=== PATIENT | female | born 1960 | race Caucasian/White ===

== ENCOUNTER 2017-03-18 17:47 | Inpatient (IN) | payer OTHER ==
[~2017-03-18] VITALS: Ht 167.6 cm; Wt 96.1 kg
[~2017-03-18 17:47] MED LIST: NO MEDS
[2017-03-18] MEDS ORDERED: FAMOTIDINE 20 MG INJ IV STA (18:54)
[2017-03-18] MEDS ORDERED: SOD CHLORIDE 0.9% 1,000 ML IV STA (18:54)
[2017-03-18] MEDS ORDERED: IPRATROPIUM (NEB) 0.5 MG/2.5 ML AMP INH STA (18:54)
[2017-03-18] MEDS ORDERED: ALBUTEROL 0.5% (NEB) 2.5 MG/0.5 ML AMP INH STA (18:54)
[2017-03-18] MEDS ORDERED: ONDANSETRON 4 MG INJ IV STA (18:54)
[2017-03-18 18:55] VITALS: TEMP 97.9
[2017-03-18 20:07] LABS: BASOPHIL # 0.1 10^3/ul (0.0-0.1); EOSINOPHILS # 0.2 10^3/ul (0.0-0.5); EOSINOPHILS % 1.8 % (0.0-7.0); HEMATOCRIT 43.9 % (37.0-47.0); LYMPHOCYTES # 1.8 10^3/ul (0.8-2.9); LYMPHOCYTES % 19.1 % (15.0-51.0); MEAN CORPUSCULAR HEMOGLOBIN 29.7 pg (29.0-33.0); MEAN CORPUSCULAR HGB CONC 34.2 g/dl (32.0-37.0); MEAN CORPUSCULAR VOLUME 86.9 fl (82.0-101.0); MEAN PLATELET VOLUME 12.3 fl (7.4-10.4); MONOCYTE # 0.8 10^3/ul (0.3-0.9); MONOCYTES % 9.1 % (0.0-11.0); NEUTROPHIL # 6.2 10^3/ul (1.6-7.5); NEUTROPHILS % 67.8 % (39.0-77.0); PLATELET COUNT 314 10^3/UL (140-415); RED BLOOD COUNT 5.05 10^6/ul (4.20-5.40); RED CELL DISTRIBUTION WIDTH 14.8 % (11.5-14.5); WHITE BLOOD COUNT 9.1 10^3/ul (4.8-10.8)
[2017-03-18 20:08] LABS: ADD SCAN DIFF NO
[2017-03-18 20:15] LABS: ADD UMIC YES; UR ASCORBIC ACID NEGATIVE (NEGATIVE); UR BACTERIA FEW /HPF (NONE SEEN); UR BILIRUBIN (Dip) 2+ mg/dL (NEGATIVE); UR BLOOD (Dip) 1+ mg/dL (NEGATIVE); UR CLARITY SLIGHTLY CLOUDY (CLEAR); UR COLOR AMBER (YELLOW); UR GLUCOSE (Dip) 1+ mg/dL (NEGATIVE); UR KETONES (Dip) NEGATIVE (NEGATIVE); UR LEUKOCYTE ESTERASE (Dip) 3+ Leu/ul (NEGATIVE); UR MUCUS FEW /HPF (NONE SEEN); UR NITRITE (Dip) NEGATIVE (NEGATIVE); UR RBC 7 /HPF (0-5); UR SPECIFIC GRAVITY (Dip) 1.016 (1.003-1.030); UR SQUAMOUS EPITHELIAL CELL MANY /HPF (FEW); UR TOTAL PROTEIN (Dip) 1+ mg/dl (NEGATIVE); UR UROBILINOGEN (Dip) 2+ mg/dL (NEGATIVE)
[2017-03-18 20:30] LABS: ALBUMIN 3.8 g/dl (3.3-4.9); ALBUMIN/GLOBULIN RATIO 1.46; BILIRUBIN,DIRECT 7.7 mg/dl (0.00-0.20); BILIRUBIN,INDIRECT 1.5 mg/dl (0-1.1); BILIRUBIN,TOTAL 9.2 mg/dl (0.2-1.3); CREATININE 0.62 mg/dl (0.44-1.00); POTASSIUM 3.5 mmol/L (3.5-5.1); TOTAL PROTEIN 6.4 g/dl (6.1-8.1)
[2017-03-18] MEDS ORDERED: DOCU250C68 PO (20:30)
[2017-03-18] MEDS ORDERED: IBUP800T25 PO (20:30)
[2017-03-18] MEDS ORDERED: METF850T PO (20:31)
[2017-03-18] MEDS ORDERED: SERT50TA6 PO (20:31)
[2017-03-18] MEDS ORDERED: PANT40TA4 PO (20:32)
[2017-03-18] MEDS ORDERED: METO25TA7 PO (20:32)
[2017-03-18] MEDS ORDERED: MISO200T3 PO (20:32)
[2017-03-18] MEDS ORDERED: TRAM-40 PO (20:33)
[2017-03-18] MEDS ORDERED: DICL100G37 TOP (20:34)
[2017-03-18] MEDS ORDERED: CEFTRIAXONE 1 GM/50 ML (PMX) 50 ML IVPB ONE (21:00)
[2017-03-18] MEDS ORDERED: IOHEXOL 300MG/ML 150 ML BTL ONE (21:05)
[2017-03-18] MEDS ORDERED: SOD CHLORIDE 0.9% 100 ML ONE (21:05)
--- NOTE | 2017-03-18 21:36 | RADRPT ---
PROCEDURE: Right upper quadrant abdominal ultrasound. CLINICAL INDICATION: Abdominal pain TECHNIQUE: Holman scale and color doppler ultrasound images of the right upper quadrant. COMPARISON: None FINDINGS: Pancreas: Visualized portions appear of normal echogenicity, no focal lesions. Liver: Morphology: The right lobe of the liver is elongated measuring up to 21.0 cm which may reflect Kira del's lobe configuration. No evidence of contour nodularity. Echogenicity: Normal. Focal lesions: None. Main portal vein: Patent with hepatopetal flow. Biliary System: Appears contracted. No gallstones seen. No intrahepatic biliary dilatation. Common bile duct measures 4.3 mm in maximal dimension. Kidneys: Right 10.8 cm in length. Right renal cortical thickness is preserved. Normal echogenicity. No hydronephrosis. No renal calculi. No focal lesions. No free fluid identified. IMPRESSION: Gallbladder wall thickening appears to be secondary to contraction. No gallstones are seen. Normal caliber intrahepatic and extrahepatic biliary system. RPTAT: AADD .Lowell Gottlieb MD, MD Date Time Electronically viewed and signed by .Lowell Gottlieb MD, on 03/18/2017 21:36 .B/
[2017-03-18] MEDS ORDERED: morphine 4 MG/ML VIAL IV ONE (22:04)
[2017-03-18] MEDS ORDERED: SOD CHLORIDE 0.9% 1,000 ML IV SCH (22:13)
--- NOTE | 2017-03-18 22:18 | ERA ---
ER Documentation Chief Complaint Date/Time DATE: 03/18/17 TIME: 22:15 Chief Complaint NAUSEA FOR SEVERAL YEARS, NO ABD PAIN, DARK-COLORED URINE HPI This is a 36-year-old female with a history of hypertension diabetes who presents to the emergency room for evaluation of nausea, and yellow coloring of her skin and eyes for the past 2 days. The patient denies any abdominal pain and came to the emergency room for further evaluation. She denies drinking any alcohol, denies using any drugs but does state that she has history of fatty liver. ROS All systems reviewed and are negative except as per history of present illness. Medications Home Meds Reported Medications Diclofenac Sodium* (Voltaren* Gel) 1% -100 Gm Gel, 2 GM TOP BID, #1 TUB 03/18/17 Tramadol Hcl* (Ultram*) 50 Mg Tablet, 50 MG PO Q12 Y for PAIN, TAB 03/18/17 Misoprostol (Misoprostol) 200 Mcg Tablet, 200 MCG PO BID, TAB 03/18/17 Pantoprazole* (Pantoprazole*) 40 Mg Tablet.dr, 40 MG PO AC BREAKFAST, TAB 03/18/17 Metoprolol Succinate* (Toprol XL*) 25 Mg Tab.sr.24h, 25 MG PO DAILY, #30 TAB 03/18/17 Sertraline Hcl* (Sertraline Hcl*) 50 Mg Tablet, 50 MG PO DAILY, #30 TAB 03/18/17 Metformin Hcl* (Metformin Hcl*) 850 Mg Tablet, 850 MG PO WITH MEALS, #90 TAB 03/18/17 Docusate Sodium* (Dok*) 250 Mg Capsule, 250 MG PO BID, #60 CAP 03/18/17 Ibuprofen* (Ibuprofen*) 800 Mg Tab, 800 MG PO TID, TAB 03/18/17 Discontinued Reported Medications [No Meds] No Conflict Check 12/21/10 Allergies Allergies: Coded Allergies: No Known Allergies (Verified Allergy, Mild, 03/18/17) PMhx/Soc Medical and Surgical Hx: pt denies Surgical Hx History of Surgery: Yes Anesthesia Reaction: No Hx Neurological Disorder: No Hx Respiratory Disorders: No Hx Cardiac Disorders: Yes Hx Psychiatric Problems: No Hx Miscellaneous Medical Probl: No Hx Alcohol Use: No Hx Substance Use: Yes Hx Tobacco Use: Yes Smoking Status: Current every day smoker Physical Exam Vitals Vital Signs Date Time Temp Pulse Resp B/P Pulse Ox O2 Delivery O2 Flow Rate FiO2 03/18/17 21:35 71 25 109/71 95 Room Air 03/18/17 20:07 66 20 96 21 03/18/17 18:55 97.9 65 12 121/77 98 Room Air 03/18/17 17:55 97.9 72 17 119/70 97 Physical Exam INITIAL VITAL SIGNS: Reviewed by me GENERAL: The patient is well developed and appropriate for usual state of health in no apparent distress HEENT: Bilateral scleral icterus, pupils equal, round, and reactive to light. EOMI. NECK: C-spine is soft and supple, there is no meningismus. There is no cervical lymphadenopathy. LUNGS: Diminished bilaterally with wheezing auscultated bilaterally HEART: Regular rate and rhythm, no murmurs, clicks, rubs or gallops. ABDOMEN: Soft, non-tender, non-distended. There are bowel sounds in all four quadrants. No rebound or guarding. EXTREMITIES: There is no peripheral cyanosis or edema. No focal swelling or erythema. NEUROLOGICAL: The patient moves all four extremities with 5/5 strength. Cranial nerves II - XII are intact. Normal gait. Alert and oriented SKIN: There is no apparent rash or petechiae. HEME/LYMPHATIC: There is no evidence of excessive bruising or lymphedema. PSYCHIATRIC: The patient does not appear anxious or depressed. Result Diagram: 03/18/17195203/18/171952 Results 24 hrs Laboratory Tests Test 03/18/17 19:53 White Blood Count 9.110^3/ul Red Blood Count 5.0510^6/ul Hemoglobin 15.0g/dl Hematocrit 43.9% Mean Corpuscular Volume 86.9fl Mean Corpuscular Hemoglobin 29.7pg Mean Corpuscular Hemoglobin Concent 34.2g/dl Red Cell Distribution Width 14.8% Platelet Count 93851^3/UL Mean Platelet Volume 12.3fl Neutrophils % 67.8% Lymphocytes % 19.1% Monocytes % 9.1% Eosinophils % 1.8% Basophils % 1.0% Nucleated Red Blood Cells % 0.0/100WBC Neutrophils # 6.210^3/ul Lymphocytes # 1.810^3/ul Monocytes # 0.810^3/ul Eosinophils # 0.210^3/ul Basophils # 0.110^3/ul Nucleated Red Blood Cells # 0.010^3/ul Urine Color SILVANO Urine Clarity SLIGHTLY CLOUDY Urine pH 6.0 Urine Specific [place] 1.016 Urine Ketones NEGATIVEmg/dL Urine Nitrite NEGATIVEmg/dL Urine Bilirubin 2+mg/dL Urine Urobilinogen 2+mg/dL Urine Leukocyte Esterase 3+Awais/ul Urine Microscopic RBC 7/HPF Urine Microscopic WBC 32/HPF Urine Squamous Epithelial Cells MANY/HPF Urine Bacteria FEW/HPF Urine Mucus FEW/HPF Urine Hemoglobin 1+mg/dL Urine Glucose 1+mg/dL Urine Total Protein 1+mg/dl Sodium Level 132mmol/L Potassium Level 3.5mmol/L Chloride Level 98mmol/L Carbon Dioxide Level 25mmol/L Anion Gap 13 Blood Urea Nitrogen 7mg/dl Creatinine 0.62mg/dl Glucose Level 219mg/dl Calcium Level 9.0mg/dl Total Bilirubin 9.2mg/dl Direct Bilirubin 7.70mg/dl Indirect Bilirubin 1.5mg/dl Aspartate Amino Transf (AST/SGOT) 1203IU/L Alanine Aminotransferase (ALT/SGPT) 712IU/L Alkaline Phosphatase 266IU/L Total Protein 6.4g/dl Albumin 3.8g/dl Globulin 2.60g/dl Albumin/Globulin Ratio 1.46 Lipase 160U/L Current Medications Medications (Trade) Dose Ordered Sig/Antelmo Route PRN Reason Start Time Stop Time Status Last Admin Dose Admin Sodium Chloride (NS) 1,000 ml @ 1,000 mls/hr Q1H STAT IV 03/18/17 18:54 03/18/17 19:53 DC 03/18/17 19:59 Ondansetron HCl (Zofran Inj) 4 mg ONCE STAT IV 03/18/17 18:54 03/18/17 18:56 DC 03/18/17 19:58 Famotidine (Pepcid Iv) 20 mg ONCE STAT IV 03/18/17 18:54 03/18/17 18:56 DC 03/18/17 18:54 Albuterol (Proventil 0.5% (Neb)) 10 mg ONCE STAT INH 03/18/17 18:54 03/18/17 18:56 DC 03/18/17 20:06 Ipratropium [place] 1 mg 1 mg ONCE STAT INH 03/18/17 18:54 03/18/17 18:56 DC 03/18/17 20:06 Ceftriaxone Sodium (Rocephin) 50 ml @ 100 mls/hr ONCE ONCE IVPB 03/18/17 21:00 03/18/17 21:29 DC 03/18/17 21:30 IV Flush 10 ml 10 ml STK-MED ONCE .ROUTE 03/18/17 21:05 03/18/17 21:06 DC 03/18/17 21:48 Sodium Chloride (NS) 100 ml @ ud STK-MED ONCE .ROUTE 03/18/17 21:05 03/18/17 21:06 DC 03/18/17 21:48 Iohexol (Omnipaque 300mg/ ml) 150 ml STK-MED ONCE .ROUTE 03/18/17 21:05 03/18/17 21:06 DC 03/18/17 21:48 Morphine Sulfate (morphine) 4 mg ONCE ONCE IV 03/18/17 22:04 03/18/17 22:05 DC Procedures/MDM Ultrasound gallbladder: IMPRESSION: Gallbladder wall thickening appears to be secondary to contraction. No gallstones are seen. Normal caliber intrahepatic and extrahepatic biliary system. CT abdomen pelvis without: Pending This 46-year-old female presents to the emergency room for evaluation of jaundice. When I evaluated this patient she had some mild wheezing and was given a breathing treatment and I did note severe scleral icterus. This patient did have lab work drawn which shows elevated bilirubin greater than 9. This patient has conjugated hyperbilirubinemia. With a superimposed hepatitis with an AST level greater than 1200 and ALT greater than 700. This patient has no right upper quadrant pain. An ultrasound was obtained which does not show any gallstones but does show contracted gallbladder. The CT of the abdomen pelvis was obtained and is pending at this time. Given this patient's acute jaundice and hepatitis she will be placed in for admission at this time for evaluation by a gastroenterology. This patient will be placed on the [facility] floor under the care of Dr. Núñez. This patient was incidentally found to have urinary tract infection and was given Rocephin as well Smoking Cessation Therapy: Pt. was lectured for greater than 3 minutes on the health risks of continued smoking and the benefits of cessation. Departure Diagnosis: Primary Impression: Acute hepatitis Additional Impressions: Hyperbilirubinemia Jaundice Tobacco abuse Tobacco abuse counseling Acute cystitis Condition: Stable MILAGROS FRIEND DO Mar 18, 2017 22:18
[2017-03-18] MEDS ORDERED: NICOTINE (21 MG/24 HR) PATCH TRANSDERM ONE (22:30)
[2017-03-18] MEDS ORDERED: ACETAMINOPHEN 325 MG TAB PO PRN (22:30)
[2017-03-18] MEDS ORDERED: ONDANSETRON 4 MG INJ IV PRN (22:30)
--- NOTE | 2017-03-18 22:38 | RADRPT ---
PROCEDURE: CT Abdomen and pelvis with contrast. CLINICAL INDICATION: Abdominal pain. TECHNIQUE: CT scan of the abdomen and pelvis with contrast was performed on a multi-detector high -resolution CT scanner. The patient was scanned following the uncomplicated administration of 100 c c of Omnipaque 300 intravenous contrast. Coronal and sagittal reformatted images were obtained from the axial source images. Images were reviewed on a high-resolution PACS workstation. One or more of the following dose reduction techniques were used: - Automated exposure control. - Adjustment of the mA and/or kV according to patient size. - Use of iterative reconstruction technique. Exam CTD/vol = 21.83 mGy. Total exam DLP = 1313.65 mGy-cm. COMPARISON: None. FINDINGS: Evaluation of the lung bases demonstrates no pleural or parenchymal disease. Abdomen: The liver is normal in size. There is no focal mass or dilatation of the biliary tree. T he gallbladder is contracted. There is stranding and mild fluid surrounding the gallbladder and pro ximal duodenum. The spleen and pancreas are within normal limits. There is mild thickening of bila teral adrenal glands. Bilateral kidneys are normal in size with symmetric enhancement. There is no focal mass, hydronephrosis or hydroureter. There is no retroperitoneal adenopathy. The abdominal aorta is of normal caliber with scattered atherosclerotic calcifications. There is no abnormal bowel wall thickening or distension. There is no bowel obstruction or free air . A normal appendix is identified. There is no diverticulosis or diverticulitis. There is no asci dell. Pelvis: The bladder is unremarkable. The uterus is absent. There is no significant pelvic adenopa thy or free fluid. Evaluation of the osseous structures demonstrates no suspicious lytic or blastic lesion. There are d egenerative changes of the spine. IMPRESSION: Nonspecific stranding and fluid surrounding a contracted gallbladder and proximal duodenum. Mild thickening of bilateral adrenal glands. Vascular calcifications reflective of atherosclerosis. Degenerative changes of the spine. .James Sanchez MD, MD Date Time Electronically viewed and signed by .James Sanchez MD, MD on 03/18/2017 22:38 .T/
[2017-03-19 01:20] VITALS: BP 123/75; RESP 20
[2017-03-19 01:30] VITALS: Ht 167.6 cm; Wt 96.1 kg
[2017-03-19] MEDS ORDERED: DOCUSATE SODIUM 100 MG CAP PO PRN (02:30)
[2017-03-19] MEDS ORDERED: NACL 0.9% 3 ML SYG IV SCH (02:30)
[2017-03-19] MEDS ORDERED: ACETAMINOPHEN 325 MG TAB PO PRN (02:30)
[2017-03-19] MEDS ORDERED: BISACODYL (EC) 5 MG TAB PO PRN (02:30)
[2017-03-19] MEDS: morphine 2 MG INJ IV PRN ×3 (02:44→15:56)
[2017-03-19 03:44] LABS: BARBITURATES Negative (NEGATIVE); BENZODIAZEPINES Negative (NEGATIVE)
[2017-03-19 03:45] LABS: CANNABINOIDS Positive (NEGATIVE); COCAINE Negative (NEGATIVE); OPIATES Negative (NEGATIVE)
--- NOTE | 2017-03-19 05:22 | HP ---
Date/Time of Note Date/Time of Note DATE: 03/19/17 TIME: 05:03 Assessment/Plan VTE Prophylaxis VTE Prophylaxis Intervention: SCD's Lines/Catheters IV [facility] Peripheral IV Assessment/Plan Chief Complaint/Hosp Course This is a 56-year-old [facility]: #1 Hyperbilirubinemia: Elevated direct bilirubin, transaminitis with an elevated alk phos concerning for possible early obstruction. Ultrasound and CAT scan however did not show any sign of any obstructive pattern. They did state there was a contracted gallbladder. At the current time will order an MRCP to further evaluate. Will order acute hepatitis panel. Will order TIM/ autoimmune labs. Ceruloplasmin, alpha-1 antitrypsin. Her hemoglobin right now is 15. She does not have a history of hemolysis however we will also check LDH and reticulocyte count and haptoglobin. Will consult GI. #2 transaminitis: Please see #1 #3: Mild thickening of bilateral adrenals: This is a incidental finding on the CT scan. Will order a cortisol level in the morning. Will assess to see if there is any adrenal sources that could be causing the patient's transaminitis or whether there are two separate processes. #4 hypertension: Continue home medication #5 diabetes mellitus insulin sliding scale will hold home oral medication #6 neuropathy: Continue on tramadol #7 DVT and GI prophylaxis: SCDs, Protonix Further treatment strategy will be implemented as per the clinical course Problems: HPI/ROS Admit Date/Time Admit Date/Time Mar 18, 2017 at 22:14 Hx of Present Illness Chief complaint: Yellow eyes This is a 36-year-old female with a history of hypertension diabetes who presents to the emergency room for evaluation of nausea, and yellow coloring of her skin and eyes for the past 2 days. The patient denies any abdominal pain and came to the emergency room for further evaluation. She denies drinking any alcohol, denies using any drugs but does state that she has history of fatty liver. She denies any recent contacts or travel. She does have tattoos however she has had them for quite some time now. He denies any recent bug bites Allergies: NKDA Medications: See MAR ROS Const: As per HPI Eyes : As per HPI ENT: No pain, sore throat, congestion, congestion, dysphagia or discharge Respiratory: No shortness of breath, cough, sputum, wheezing, or pleuritic pain Cardiovascular: No chest pain, palpitation, PND, or edema GI : As per HPI Genitourinary: No dysuria, hematuria, flank pain , discharge or CVA tenderness Musculoskeletal: No joint pain, back pain, neck pain, restricted range of motion in neck or joints Skin: As per HPI Neuro: No headache, dizziness, syncope, seizure, focal weakness Endocrine: No polyuria, polydipsia, temperature intolerance Psych: No hallucination, depression, anxiety or suicidal ideation PMH/Family/Social Past Medical History Hypertension, diabetes, neuropathy, arthritis, rosacea Past Surgical History Hysterectomy, C6 Family History Significant Family History: no pertinent family hx Social History Alcohol Use: none Smoking Status: Current every day smoker (1 pack per day 30 years) Drug Use: none Exam/Review of Systems Vital Signs Vitals Vital Signs Date Time Temp Pulse Resp B/P Pulse Ox O2 Delivery O2 Flow Rate FiO2 03/19/17 01:20 97.6 62 20 123/75 98 03/19/17 00:29 Room Air 03/18/17 20:07 21 Intake and Output 03/18/17 03/18/17 03/19/17 15:00 23:00 07:00 Intake Total 150 ml Balance 150 ml Exam Exam General: Patient is well-developed slightly anxious but in no acute distress HEENT: Atraumatic, normocephalic. Scleral icterus bilaterally Neck: Supple with full range of motion. No rigidity or meningismus Chest: Nontender Lungs: Clear to auscultation bilaterally no crackles rales or wheezing Heart: Normal S1-S2, Regular rhythm and rate. No murmur, S3, or S4 Abdomen: Soft, mild tenderness to palpation over the epigastric region, normal bowel sounds, no hepatosplenomegaly appreciated Extremities: Normal to inspection, no edema no cyanosis Neurologic: Normal mental status, speech normal, cranial nerves II through XII are intact, motor and sensory are intact, no focal weakness Skin: Warm and no rashes appreciated Additional Comments PROCEDURE: CT Abdomen and pelvis with contrast. CLINICAL INDICATION: Abdominal pain. TECHNIQUE: CT scan of the abdomen and pelvis with contrast was performed on a multi-detector high-resolution CT scanner. The patient was scanned following the uncomplicated administration of 100 cc of Omnipaque 300 intravenous contrast. Coronal and sagittal reformatted images were obtained from the axial source images. Images were reviewed on a high-resolution PACS workstation. One or more of the following dose reduction techniques were used: - Automated exposure control. - Adjustment of the mA and/or kV according to patient size. - Use of iterative reconstruction technique. Exam CTD/vol = 21.83 mGy. Total exam DLP = 1313.65 mGy-cm. COMPARISON: None. FINDINGS: Evaluation of the lung bases demonstrates no pleural or parenchymal disease. Abdomen: The liver is normal in size. There is no focal mass or dilatation of the biliary tree. The gallbladder is contracted. There is stranding and mild fluid surrounding the gallbladder and proximal duodenum. The spleen and pancreas are within normal limits. There is mild thickening of bilateral adrenal glands. Bilateral kidneys are normal in size with symmetric enhancement. There is no focal mass, hydronephrosis or hydroureter. There is no retroperitoneal adenopathy. The abdominal aorta is of normal caliber with scattered atherosclerotic calcifications. There is no abnormal bowel wall thickening or distension. There is no bowel obstruction or free air. A normal appendix is identified. There is no diverticulosis or diverticulitis. There is no ascites. Pelvis: The bladder is unremarkable. The uterus is absent. There is no significant pelvic adenopathy or free fluid. Evaluation of the osseous structures demonstrates no suspicious lytic or blastic lesion. There are degenerative changes of the spine. IMPRESSION: Nonspecific stranding and fluid surrounding a contracted gallbladder and proximal duodenum. Mild thickening of bilateral adrenal glands. Vascular calcifications reflective of atherosclerosis. Degenerative changes of the spine. .James Sanchez MD, MD Date Time Electronically viewed and signed by .James Sanchez MD, MD on 03/18/2017 22:38 PROCEDURE: Right upper quadrant abdominal ultrasound. CLINICAL INDICATION: Abdominal pain TECHNIQUE: Homlan scale and color doppler ultrasound images of the right upper quadrant. COMPARISON: None FINDINGS: Pancreas: Visualized portions appear of normal echogenicity, no focal lesions. Liver: Morphology: The right lobe of the liver is elongated measuring up to 21.0 cm which may reflect Vinod's lobe configuration. No evidence of contour nodularity. Echogenicity: Normal. Focal lesions: None. Main portal vein: Patent with hepatopetal flow. Biliary System: Appears contracted. No gallstones seen. No intrahepatic biliary dilatation. Common bile duct measures 4.3 mm in maximal dimension. Kidneys: Right 10.8 cm in length. Right renal cortical thickness is preserved. Normal echogenicity. No hydronephrosis. No renal calculi. No focal lesions. No free fluid identified. IMPRESSION: Gallbladder wall thickening appears to be secondary to contraction. No gallstones are seen. Normal caliber intrahepatic and extrahepatic biliary system. RPTAT: AADD .Lowell Gottlieb MD, MD Date Time Electronically viewed and signed by .Lowell Gottleib MD, MD on 03/18/2017 21:36 Labs Result Diagram: 03/18/17195203/18/171952 Medications Medications Current Medications Sodium Chloride (NS) 1,000 ml @ 80 mls/hr [id number] IV Last administered on 03/18 22:30; Admin Dose 80 MLS/HR; Start 03/18/17 at 22:13; Stop 03/19/17 at 10: 42 Ondansetron HCl (Zofran Inj) 4 mg Q6H PRN IV NAUSEA AND/OR VOMITING; Start 03/19 at 02:30 Acetaminophen (Tylenol Tab) 650 mg Q6H PRN PO PAIN LEVEL 1-3 OR FEVER; Start at 02:30 Morphine Sulfate (morphine) 1 mg Q4H PRN IV SEVERE PAIN LEVEL 7-10 Last administered on 03/19/17 02:44; Admin Dose 1 MG; Start 03/19/17 at 02:30 Docusate Sodium (Colace) 100 mg Q12H PRN PO CONSTIPATION; Start 03/19/17 at 02: 30 Bisacodyl (Dulcolax) 5 mg DAILY PRN PO CONSTIPATION; Start 03/19/17 at 02:30 Pantoprazole (Protonix Iv) 40 mg DAILY@06 IV ; Start 03/19/17 at 06:00 MAGUI CAMERON Mar 19, 2017 05:18
[2017-03-19] MEDS: PANTOPRAZOLE 40 MG INJ IV SCH (06:05)
[2017-03-19 06:46] LABS: HAAIG REFLEX REFLEX FILED
[2017-03-19 07:38] LABS: THYROID STIMULATING HORMONE 0.853 MIU/L (0.465-4.680)
[2017-03-19 08:20] LABS: BASOPHIL # 0.1 10^3/ul (0.0-0.1); EOSINOPHILS # 0.1 10^3/ul (0.0-0.5); EOSINOPHILS % 1.9 % (0.0-7.0); HEMATOCRIT 39.2 % (37.0-47.0); HEMOGLOBIN 13.5 g/dl (12.0-16.0); LYMPHOCYTES # 1.3 10^3/ul (0.8-2.9); LYMPHOCYTES % 18.8 % (15.0-51.0); MEAN CORPUSCULAR HEMOGLOBIN 30.3 pg (29.0-33.0); MEAN CORPUSCULAR HGB CONC 34.4 g/dl (32.0-37.0); MEAN CORPUSCULAR VOLUME 87.9 fl (82.0-101.0); MEAN PLATELET VOLUME 12.3 fl (7.4-10.4); MONOCYTE # 0.8 10^3/ul (0.3-0.9); MONOCYTES % 10.7 % (0.0-11.0); NEUTROPHIL # 4.7 10^3/ul (1.6-7.5); NEUTROPHILS % 66.7 % (39.0-77.0); PLATELET COUNT 256 10^3/UL (140-415); RED BLOOD COUNT 4.46 10^6/ul (4.20-5.40); RED CELL DISTRIBUTION WIDTH 14.9 % (11.5-14.5)
[2017-03-19 08:24] LABS: RETICULOCYTE COUNT % 1.8 % (0.5-1.5)
[2017-03-19 08:44] LABS: CHOL/HDL RATIO 6.9 RATIO
[2017-03-19] MEDS: SERTRALINE 50 MG TAB PO SCH (09:25)
[2017-03-19 09:27] LABS: HEPATITIS B CORE ANTIBODY NEGATIVE (NEGATIVE)
[2017-03-19] MEDS: METOPROLOL (XL) 25 MG TAB PO SCH (09:33)
[2017-03-19 09:34] VITALS: BP 144/76; PULSE 76; RESP 18
[2017-03-19 09:38] LABS: ALBUMIN 3.1 g/dl (3.3-4.9); ALBUMIN/GLOBULIN RATIO 1.34; BILIRUBIN,DIRECT 7.2 mg/dl (0.00-0.20); BILIRUBIN,INDIRECT 1.4 mg/dl (0-1.1); BILIRUBIN,TOTAL 8.6 mg/dl (0.2-1.3); CALCIUM 8.6 mg/dl (8.4-10.2); CREATININE 0.61 mg/dl (0.44-1.00); POTASSIUM 3.3 mmol/L (3.5-5.1); TOTAL PROTEIN 5.4 g/dl (6.1-8.1)
[2017-03-19 13:32] LABS: T3 UPTAKE 31.1 % (23.5-40.5)
[2017-03-19] MEDS ORDERED: POTASSIUM CHLORIDE (SR) 20 MEQ TAB PO STA (14:21)
[2017-03-19] MEDS ORDERED: ALBUTEROL/IPRATROPIUM (NEB) 3 ML AMP HHN PRN (14:30)
[2017-03-19] MEDS ORDERED: GLUCAGON 1 MG INJ IM PRN (15:30)
[2017-03-19] MEDS ORDERED: DEXTROSE 50% 50 ML SYRINGE IV PRN ×2 (15:30)
[2017-03-19] MEDS ORDERED: GLUCOSE GEL 15 GRAM TUBE PO PRN ×2 (15:30)
[2017-03-19] MEDS ORDERED: GLUCOSE GEL 15 GRAM TUBE BUCCAL PRN (15:30)
[2017-03-19] MEDS ORDERED: MAGNESIUM SULFATE 2 GM/50 ML 50 ML IVPB ONE (16:00)
[2017-03-19] MEDS: INSULIN ASPART [NOVOLOG] 3 ML PEN SC SCH ×3 (17:50→20:45)
--- NOTE | 2017-03-19 18:49 | CONS ---
Date/Time of Note Date/Time of Note DATE: 03/19/17 TIME: 18:41 Assessment/Plan Assessment/Plan Chief Complaint/Hosp Course Impression: #1 Hyperbilirubinemia: Elevated direct bilirubin, transaminitis with an elevated alk phos concerning for possible early obstruction. Ultrasound and CAT scan however did not show any sign of any obstructive pattern. #2 transaminitis: AST:ALT ratio of 2:1 highly suggest EtOH use but pt denied. #3: HCV positive #4 Medical [facility] use Recommendation: 1. agree with MRCP to further evaluate. 2. f/u TIM/autoimmune labs. Ceruloplasmin, alpha-1 antitrypsin. iron panel 3. consider liver biopsy if MRCP is unrevealing and if labs do not improve. Problems: Consultation Date/Type/Reason Admit Date/Time Mar 18, 2017 at 22:14 Date of Consultation: Mar 19, 2017 Type of Consultation: GI Reason for Consultation jaundice Hx of Present Illness 36-year-old female with a history of hypertension diabetes who is admitted for jaundice. She also has nausea x 2 days. Patient reports yellow coloring of her skin and eyes for the past 2 days. No abdominal pain. She denies drinking any alcohol, denies using any drugs but does state that she has history of fatty liver. She denies any recent contacts or travel. She does have tattoos however she has had them for quite some time now. He denies any recent bug bites. No recreational drug use. All point ROS administered, pertinent positives and negatives in HPI otherwise negative. Past Medical History arthritis, neuropathy, rosacea Medical History: diabetes, hypertension Past Surgical History hysterrecttomy Family History Significant Family History: no pertinent family hx Social History Alcohol Use: none Smoking Status: Current every day smoker (1 pack per day 30 years) Drug Use: other (use to use meth) Exam/Review of Systems Vital Signs Vitals Vital Signs Date Time Temp Pulse Resp B/P Pulse Ox O2 Delivery O2 Flow Rate FiO2 03/19/17 09:34 98.2 76 18 144/76 97 Room Air 03/18/17 20:07 21 Intake and Output 03/18/17 03/18/17 03/19/17 15:00 23:00 07:00 Intake Total 720 ml Balance 720 ml Exam Constitutional: alert, obese, oriented Psych: nl mood/affect, no complaints Head: atraumatic, normocephalic Eyes: EOMI, nl conjunctiva, nl lids, nl sclera ENMT: mucosa pink and moist, nl external ears & nose, nl lips & teeth, nl nasal mucosa & septum Neck: non-tender, supple Respiratory: clear to auscultation, normal air movement Cardiovascular: nl pulses, regular rate and rhythm Gastrointestinal: bowel sounds, non-tender, soft Neurological: nl mental status, nl speech, nl strength Results Result Diagram: 03/19/17 0805 03/19/17 0730 Results 24 hrs Laboratory Tests Test 03/18/17 19:53 03/19/17 00:09 03/19/17 06:13 03/19/17 07:30 White Blood Count 9.1 Red Blood Count 5.05 Hemoglobin 15.0 Hematocrit 43.9 Mean Corpuscular Volume 86.9 Mean Corpuscular Hemoglobin 29.7 Mean Corpuscular Hemoglobin Concent 34.2 Red Cell Distribution Width 14.8 H Platelet Count 314 Mean Platelet Volume 12.3 H Neutrophils % 67.8 Lymphocytes % 19.1 Monocytes % 9.1 Eosinophils % 1.8 Basophils % 1.0 Nucleated Red Blood Cells % 0.0 Neutrophils # 6.2 Lymphocytes # 1.8 Monocytes # 0.8 Eosinophils # 0.2 Basophils # 0.1 Nucleated Red Blood Cells # 0.0 Urine Color SILVANO Urine Clarity SLIGHTLY CLOUDY A Urine pH 6.0 Urine Specific [place] 1.016 Urine Ketones NEGATIVE Urine Nitrite NEGATIVE Urine Bilirubin 2+ H Urine Urobilinogen 2+ H Urine Leukocyte Esterase 3+ H Urine Microscopic RBC 7 H Urine Microscopic WBC 32 H Urine Squamous Epithelial Cells MANY A Urine Bacteria FEW A Urine Mucus FEW A Urine Hemoglobin 1+ H Urine Glucose 1+ H Urine Total Protein 1+ H Sodium Level 132 L 135 Potassium Level 3.5 3.3 L Chloride Level 98 103 Carbon Dioxide Level 25 25 Anion Gap 13 10 Blood Urea Nitrogen 7 6 L Creatinine 0.62 0.61 Glucose Level 219 202 Calcium Level 9.0 8.6 Total Bilirubin 9.2 H 8.6 H Direct Bilirubin 7.70 H 7.20 H Indirect Bilirubin 1.5 H 1.4 H Aspartate Amino Transf (AST/SGOT) 1203 H 1037 H Alanine Aminotransferase (ALT/SGPT) 712 H 590 H Alkaline Phosphatase 266 H 201 H Total Protein 6.4 5.4 #L Albumin 3.8 3.1 L Globulin 2.60 2.30 Albumin/Globulin Ratio 1.46 1.34 Lipase 160 Urine Opiates Screen Negative Urine Barbiturates Negative Urine Amphetamines Screen Negative Urine Benzodiazepines Screen Negative Urine Cocaine Screen Negative Urine Cannabinoids Positive Thyroid Stimulating Hormone (TSH) 0.853 0.585 Random Cortisol 8.9 Hepatitis B Surface Antigen NEGATIVE Hepatitis B Surface Antibody NEGATIVE Hepatitis B Core Total Antibody NEGATIVE Hepatitis C Antibody REACTIVE H HIV (1&2) Antibody NEGATIVE Absolute Reticulocyte Count 0.081 Percent Reticulocyte Count 1.8 H Hemoglobin A1c 11.1 H Lactate Dehydrogenase 743 H Triglycerides Level 201 H Cholesterol Level 153 LDL Cholesterol, Calculated 91 HDL Cholesterol 22 L Cholesterol/HDL Ratio 6.9 Test 03/19/17 08:05 03/19/17 17:36 03/19/17 17:37 White Blood Count 7.0 # Red Blood Count 4.46 Hemoglobin 13.5 Hematocrit 39.2 Mean Corpuscular Volume 87.9 Mean Corpuscular Hemoglobin 30.3 Mean Corpuscular Hemoglobin Concent 34.4 Red Cell Distribution Width 14.9 H Platelet Count 256 Mean Platelet Volume 12.3 H Neutrophils % 66.7 Lymphocytes % 18.8 Monocytes % 10.7 Eosinophils % 1.9 Basophils % 1.0 Nucleated Red Blood Cells % 0.0 Neutrophils # 4.7 Lymphocytes # 1.3 Monocytes # 0.8 Eosinophils # 0.1 Basophils # 0.1 Nucleated Red Blood Cells # 0.0 Magnesium Level 1.5 L Free Thyroxine Index 5.32 H Thyroxine (T4) 17.1 H Triiodothyronine (T3) Uptake 31.1 Bedside Glucose 223 H 251 H Medications Medications Current Medications Ondansetron HCl (Zofran Inj) 4 mg Q6H PRN IV NAUSEA AND/OR VOMITING; Start 03/19 at 02:30 Acetaminophen (Tylenol Tab) 650 mg Q6H PRN PO PAIN LEVEL 1-3 OR FEVER; Start at 02:30 Morphine Sulfate (morphine) 1 mg Q4H PRN IV SEVERE PAIN LEVEL 7-10 Last administered on 03/19/17t 15:56; Admin Dose 1 MG; Start 03/19/17 at 02:30 Docusate Sodium (Colace) 100 mg Q12H PRN PO CONSTIPATION; Start 03/19/17 at 02: 30 Bisacodyl (Dulcolax) 5 mg DAILY PRN PO CONSTIPATION; Start 03/19/17 at 02:30 Pantoprazole (Protonix Iv) 40 mg DAILY@06 IV Last administered on 03/19/17 06: 05; Admin Dose 40 MG; Start 03/19/17 at 06:00 Metoprolol Succinate (Toprol Xl) 25 mg DAILY PO Last administered on 03/19/17 09:33; Admin Dose 25 MG; Start 03/19/17 at 09:00 Sertraline HCl (Zoloft) 50 mg DAILY PO Last administered on 03/19/17 09:25; Admin Dose 50 MG; Start 03/19/17 at 09:00 Tramadol HCl (Ultram) 50 mg Q12 PRN PO PAIN; Start 03/19/17 at 05:30 Insulin Glargine (Lantus) 18 unit DAILY@20 SC ; Start 03/19/17 at 20:00 Diagnostic Test (Pha) (Accu-Chek) 1 ea 02 XX ; Start 03/20/17 at 02:00 Miscellaneous Information 1 ea NOTE XX ; Start 03/19/17 at 15:30 Glucose (Glutose) 15 gm Q15M PRN PO DECREASED GLUCOSE; Start 03/19/17 at 15:30 Glucose (Glutose) 22.5 gm Q15M PRN PO DECREASED GLUCOSE; Start 03/19/17 at 15:30 Dextrose (D50w Syringe) 25 ml Q15M PRN IV DECREASED GLUCOSE; Start 03/19/17 at 15:30 Dextrose (D50w Syringe) 50 ml Q15M PRN IV DECREASED GLUCOSE; Start 03/19/17 at 15:30 Glucagon (Glucagen) 1 mg Q15M PRN IM DECREASED GLUCOSE; Start 03/19/17 at 15:30 Glucose (Glutose) 15 gm Q15M PRN BUCCAL DECREASED GLUCOSE; Start 03/19/17 at 15: 30 PAKO BEEBE MD Mar 19, 2017 18:49
[2017-03-19 19:52] VITALS: BP 130/63; RESP 18
[2017-03-19] MEDS: ALBUTEROL/IPRATROPIUM (NEB) 3 ML AMP HHN SCH (20:33)
[2017-03-19] MEDS: INSULIN GLARGINE [LANtus] 3 ML PEN SC SCH (20:44)
[2017-03-20] MEDS: ACCU-CHEK XX SCH (02:00)
[2017-03-20] MEDS: PANTOPRAZOLE 40 MG INJ IV SCH (05:21)
[2017-03-20 05:56] LABS: BASOPHIL # 0.1 10^3/ul (0.0-0.1); BASOPHILS % 1.5 % (0.0-2.0); EOSINOPHILS # 0.2 10^3/ul (0.0-0.5); EOSINOPHILS % 2.8 % (0.0-7.0); HEMATOCRIT 38.9 % (37.0-47.0); HEMOGLOBIN 13.3 g/dl (12.0-16.0); LYMPHOCYTES # 1.5 10^3/ul (0.8-2.9); LYMPHOCYTES % 20.4 % (15.0-51.0); MEAN CORPUSCULAR HEMOGLOBIN 29.7 pg (29.0-33.0); MEAN CORPUSCULAR HGB CONC 34.2 g/dl (32.0-37.0); MEAN CORPUSCULAR VOLUME 86.8 fl (82.0-101.0); MEAN PLATELET VOLUME 12.4 fl (7.4-10.4); MONOCYTE # 0.7 10^3/ul (0.3-0.9); MONOCYTES % 10.1 % (0.0-11.0); NEUTROPHIL # 4.7 10^3/ul (1.6-7.5); NEUTROPHILS % 64.4 % (39.0-77.0); PLATELET COUNT 276 10^3/UL (140-415); RED BLOOD COUNT 4.48 10^6/ul (4.20-5.40); RED CELL DISTRIBUTION WIDTH 15.2 % (11.5-14.5); WHITE BLOOD COUNT 7.2 10^3/ul (4.8-10.8)
[2017-03-20 06:12] LABS: MAGNESIUM 1.8 mg/dl (1.7-2.5); PHOSPHORUS 3.4 mg/dl (2.5-4.9)
[2017-03-20 06:16] LABS: ALBUMIN 2.9 g/dl (3.3-4.9); ALBUMIN/GLOBULIN RATIO 1.2; BILIRUBIN,INDIRECT 1.5 mg/dl (0-1.1); BILIRUBIN,TOTAL 9.5 mg/dl (0.2-1.3); CALCIUM 8.8 mg/dl (8.4-10.2); CREATININE 0.54 mg/dl (0.44-1.00); POTASSIUM 3.5 mmol/L (3.5-5.1); TOTAL PROTEIN 5.3 g/dl (6.1-8.1)
[2017-03-20 06:19] LABS: IRON 99 ug/dl (35-150)
[2017-03-20 06:29] LABS: TOTAL IRON BINDING CAPACITY 293 ug/dl (241-421)
[2017-03-20 06:43] LABS: ADD SCAN DIFF NO
[2017-03-20] MEDS: INSULIN ASPART [NOVOLOG] 3 ML PEN SC SCH ×8 (08:15→20:14)
[2017-03-20] MEDS: ALBUTEROL/IPRATROPIUM (NEB) 3 ML AMP HHN SCH ×3 (08:19→20:54)
[2017-03-20 09:28] VITALS: BP 128/76; PULSE 78; RESP 18
[2017-03-20] MEDS: morphine 2 MG INJ IV PRN ×2 (09:32→20:19)
[2017-03-20] MEDS: METOPROLOL (XL) 25 MG TAB PO SCH (09:32)
[2017-03-20] MEDS: SERTRALINE 50 MG TAB PO SCH (09:33)
--- NOTE | 2017-03-20 09:47 | CONS ---
Date/Time of Note Date/Time of Note DATE: 03/20/17 TIME: 09:46 Assessment/Plan Assessment/Plan Chief Complaint/Hosp Course Impression: #1 Hyperbilirubinemia: Elevated direct bilirubin, transaminitis with an elevated alk phos concerning for possible early obstruction. Ultrasound and CAT scan however did not show any sign of any obstructive pattern. Awaiting MRCP. #2 transaminitis: AST:ALT ratio of 2:1 highly suggest EtOH use but pt denied. #3: HCV positive #4 Medical [facility] use Recommendation: 1. awaiting MRCP to further evaluate. 2. f/u TIM/autoimmune labs. Ceruloplasmin, alpha-1 antitrypsin. iron panel 3. consider liver biopsy if MRCP is unrevealing and if labs do not improve. 4. will change diet to clear liquids as LFT worsening Problems: Consultation Date/Type/Reason Admit Date/Time Mar 18, 2017 at 22:14 Initial Consult Date 03/19/17 Type of Consultation: GI 24 HR Interval Summary Free Text/Dictation tolerating po, no abdominal pain Exam/Review of Systems Vital Signs Vitals Vital Signs Date Time Temp Pulse Resp B/P Pulse Ox O2 Delivery O2 Flow Rate FiO2 03/20/17 09:28 98.5 78 18 128/76 95 Room Air 03/20/17 08:20 21 Intake and Output 03/19/17 03/19/17 03/20/17 15:00 23:00 07:00 Intake Total 550 ml 1450 ml 480 ml Balance 550 ml 1450 ml 480 ml Exam Constitutional: alert, obese, oriented Psych: nl mood/affect, no complaints Head: atraumatic, normocephalic Eyes: EOMI, icteric, nl lids ENMT: mucosa pink and moist, nl external ears & nose, nl lips & teeth, nl nasal mucosa & septum Neck: non-tender, supple Respiratory: clear to auscultation, normal air movement Cardiovascular: nl pulses, regular rate and rhythm Gastrointestinal: bowel sounds, non-tender, soft Results Result Diagram: 03/20/17 0515 03/20/17 0515 Results 24 hrs Laboratory Tests Test 03/19/17 17:36 03/19/17 17:37 03/19/17 20:40 03/20/17 05:15 Bedside Glucose 223 H 251 H 159 White Blood Count 7.2 Red Blood Count 4.48 Hemoglobin 13.3 Hematocrit 38.9 Mean Corpuscular Volume 86.8 Mean Corpuscular Hemoglobin 29.7 Mean Corpuscular Hemoglobin Concent 34.2 Red Cell Distribution Width 15.2 H Platelet Count 276 Mean Platelet Volume 12.4 H Neutrophils % 64.4 Lymphocytes % 20.4 Monocytes % 10.1 Eosinophils % 2.8 Basophils % 1.5 Nucleated Red Blood Cells % 0.0 Neutrophils # 4.7 Lymphocytes # 1.5 Monocytes # 0.7 Eosinophils # 0.2 Basophils # 0.1 Nucleated Red Blood Cells # 0.0 Sodium Level 139 Potassium Level 3.5 Chloride Level 102 Carbon Dioxide Level 26 Anion Gap 15 Blood Urea Nitrogen 5 L Creatinine 0.54 Glucose Level 142 # Calcium Level 8.8 Phosphorus Level 3.4 Magnesium Level 1.8 Iron Level 99 Total Iron Binding Capacity 293 Percent Iron Saturation 34 Total Bilirubin 9.5 H Direct Bilirubin 8.00 H Indirect Bilirubin 1.5 H Aspartate Amino Transf (AST/SGOT) 1186 H Alanine Aminotransferase (ALT/SGPT) 603 H Alkaline Phosphatase 192 H Ammonia 37 H Total Protein 5.3 L Albumin 2.9 L Globulin 2.40 Albumin/Globulin Ratio 1.20 Test 03/20/17 08:30 Bedside Glucose 127 Medications Medications Current Medications Ondansetron HCl (Zofran Inj) 4 mg Q6H PRN IV NAUSEA AND/OR VOMITING; Start 03/19 at 02:30 Acetaminophen (Tylenol Tab) 650 mg Q6H PRN PO PAIN LEVEL 1-3 OR FEVER; Start at 02:30 Morphine Sulfate (morphine) 1 mg Q4H PRN IV SEVERE PAIN LEVEL 7-10 Last administered on 03/20/17 09:32; Admin Dose 1 MG; Start 03/19/17 at 02:30 Docusate Sodium (Colace) 100 mg Q12H PRN PO CONSTIPATION; Start 03/19/17 at 02: 30 Bisacodyl (Dulcolax) 5 mg DAILY PRN PO CONSTIPATION; Start 03/19/17 at 02:30 Pantoprazole (Protonix Iv) 40 mg DAILY@06 IV Last administered on 03/19/17 06: 05; Admin Dose 40 MG; Start 03/19/17 at 06:00 Metoprolol Succinate (Toprol Xl) 25 mg DAILY PO Last administered on 03/20/17 09:32; Admin Dose 25 MG; Start 03/19/17 at 09:00 Sertraline HCl (Zoloft) 50 mg DAILY PO Last administered on 03/20/17 09:33; Admin Dose 50 MG; Start 03/19/17 at 09:00 Tramadol HCl (Ultram) 50 mg Q12 PRN PO PAIN; Start 03/19/17 at 05:30 Insulin Glargine (Lantus) 18 unit DAILY@20 SC Last administered on 03/19/17 20: 44; Admin Dose 18 UNIT; Start 03/19/17 at 20:00 Diagnostic Test (Pha) (Accu-Chek) 1 ea 02 XX ; Start 03/20/17 at 02:00 Miscellaneous Information 1 ea NOTE XX ; Start 03/19/17 at 15:30 Glucose (Glutose) 15 gm Q15M PRN PO DECREASED GLUCOSE; Start 03/19/17 at 15:30 Glucose (Glutose) 22.5 gm Q15M PRN PO DECREASED GLUCOSE; Start 03/19/17 at 15:30 Dextrose (D50w Syringe) 25 ml Q15M PRN IV DECREASED GLUCOSE; Start 03/19/17 at 15:30 Dextrose (D50w Syringe) 50 ml Q15M PRN IV DECREASED GLUCOSE; Start 03/19/17 at 15:30 Glucagon (Glucagen) 1 mg Q15M PRN IM DECREASED GLUCOSE; Start 03/19/17 at 15:30 Glucose (Glutose) 15 gm Q15M PRN BUCCAL DECREASED GLUCOSE; Start 03/19/17 at 15: 30 Nicotine (Nicoderm 21 Mg/ 24hr) 1 patch DAILY TRANSDERM ; Start 03/20/17 at 09:12 PAKO BEEBE MD Mar 20, 2017 09:47
[2017-03-20] MEDS: NICOTINE (21 MG/24 HR) PATCH TRANSDERM SCH (10:43)
[2017-03-20] MEDS: LACTATED RINGER'S 1,000 ML IV SCH ×2 (10:43→20:18)
--- NOTE | 2017-03-20 12:20 | PN ---
Date/Time of Note Date/Time of Note DATE: 03/20/17 TIME: 12:18 Assessment/Plan VTE Prophylaxis VTE Prophylaxis Intervention: SCD's Lines/Catheters IV Catheter Type (from Nrs): Peripheral IV Assessment/Plan Chief Complaint/Hosp Course 1. Transaminitis with hyperbilirubinemia. Etiology unclear. Hepatitis C antibody positive. Awaiting results for evaluation of autoimmune hepatitis. MRCP pending. Avoid hepatotoxic medications. Low-cholesterol diet. 2. COPD. No evidence of exacerbation. Continue inhaled bronchodilators around -the-clock and on a as needed basis. 3. Depression. Continue antidepressants. 4. Type 2 diabetes mellitus. Uncontrolled. Hemoglobin A1c 11.1. Continue sliding scale insulin along with the pre-meal insulin and Lantus insulin. 5. Dyslipidemia. Elevated triglycerides and suboptimal HDL. Low-cholesterol diet. Unable to use any statins because of underlying transaminitis and hyperbilirubinemia. 6. Nicotine use. On a nicotine patch. Cessation advised. 7. Obesity. BMI of 34.2 kg/m. Weight reduction advised. 8. Fluids, electrolytes, and nutrition. Clear liquid diet. 9. DVT prophylaxis. Bilateral sequential compression devices. 10. Gastrointestinal prophylaxis. Proton pump inhibitors. 11. Plan. Continue current management. Await MRCP. Await further recommendations from consultants. Case discussed with Dr. Aquino. Problems: Subjective 24 Hr Interval Summary Free Text/Dictation Denies any pain. Exam/Review of Systems Vital Signs Vitals Vital Signs Date Time Temp Pulse Resp B/P Pulse Ox O2 Delivery O2 Flow Rate FiO2 03/20/17 09:28 98.5 78 18 128/76 95 Room Air 03/20/17 08:20 21 Intake and Output 03/19/17 03/19/17 03/20/17 15:00 23:00 07:00 Intake Total 550 ml 1450 ml 480 ml Balance 550 ml 1450 ml 480 ml Exam General: Obese 56 year-old female lying in bed in no apparent distress. HEENT: Normocephalic, atraumatic. Eyes: Anicteric sclerae, conjunctivae clear. ENT: Nasal septum midline, oral mucosa moist. Neck supple, no JVD noticed. Respiratory: Bilaterally clear breath sounds. No use of accessory muscles of respiration. Bilateral rhonchi. Cardiovascular: S1, S2 heard. No murmurs or gallops. Abdomen: Soft, nontender, and nondistended. Bowel sounds positive in all 4 quadrants. Genitourinary: Deferred. Extremities: No cyanosis, no clubbing, no edema. Peripheral pulses palpable. Neurologic: Cranial nerves II through XII grossly intact. The patient is awake, alert, and oriented. Skin: Normal skin turgor. No skin rashes. Results Result Diagram: 03/20/17 0515 03/20/17 0515 Results 24 hrs Laboratory Tests Test 03/19/17 17:36 03/19/17 17:37 03/19/17 20:40 03/20/17 05:15 Bedside Glucose 223 H 251 H 159 White Blood Count 7.2 Red Blood Count 4.48 Hemoglobin 13.3 Hematocrit 38.9 Mean Corpuscular Volume 86.8 Mean Corpuscular Hemoglobin 29.7 Mean Corpuscular Hemoglobin Concent 34.2 Red Cell Distribution Width 15.2 H Platelet Count 276 Mean Platelet Volume 12.4 H Neutrophils % 64.4 Lymphocytes % 20.4 Monocytes % 10.1 Eosinophils % 2.8 Basophils % 1.5 Nucleated Red Blood Cells % 0.0 Neutrophils # 4.7 Lymphocytes # 1.5 Monocytes # 0.7 Eosinophils # 0.2 Basophils # 0.1 Nucleated Red Blood Cells # 0.0 Sodium Level 139 Potassium Level 3.5 Chloride Level 102 Carbon Dioxide Level 26 Anion Gap 15 Blood Urea Nitrogen 5 L Creatinine 0.54 Glucose Level 142 # Calcium Level 8.8 Phosphorus Level 3.4 Magnesium Level 1.8 Iron Level 99 Total Iron Binding Capacity 293 Percent Iron Saturation 34 Total Bilirubin 9.5 H Direct Bilirubin 8.00 H Indirect Bilirubin 1.5 H Aspartate Amino Transf (AST/SGOT) 1186 H Alanine Aminotransferase (ALT/SGPT) 603 H Alkaline Phosphatase 192 H Ammonia 37 H Total Protein 5.3 L Albumin 2.9 L Globulin 2.40 Albumin/Globulin Ratio 1.20 Test 03/20/17 08:30 03/20/17 09:43 Bedside Glucose 127 148 Medications Medications Current Medications Ondansetron HCl (Zofran Inj) 4 mg Q6H PRN IV NAUSEA AND/OR VOMITING; Start 03/19 at 02:30 Acetaminophen (Tylenol Tab) 650 mg Q6H PRN PO PAIN LEVEL 1-3 OR FEVER; Start at 02:30 Morphine Sulfate (morphine) 1 mg Q4H PRN IV SEVERE PAIN LEVEL 7-10 Last administered on 03/20/17 09:32; Admin Dose 1 MG; Start 03/19/17 at 02:30 Docusate Sodium (Colace) 100 mg Q12H PRN PO CONSTIPATION; Start 03/19/17 at 02: 30 Bisacodyl (Dulcolax) 5 mg DAILY PRN PO CONSTIPATION; Start 03/19/17 at 02:30 Metoprolol Succinate (Toprol Xl) 25 mg DAILY PO Last administered on 03/20/17 09:32; Admin Dose 25 MG; Start 03/19/17 at 09:00 Sertraline HCl (Zoloft) 50 mg DAILY PO Last administered on 03/20/17 09:33; Admin Dose 50 MG; Start 03/19/17 at 09:00 Tramadol HCl (Ultram) 50 mg Q12 PRN PO PAIN; Start 03/19/17 at 05:30 Insulin Glargine (Lantus) 18 unit DAILY@20 SC Last administered on 03/19/17 20: 44; Admin Dose 18 UNIT; Start 03/19/17 at 20:00 Diagnostic Test (Pha) (Accu-Chek) 1 ea 02 XX ; Start 03/20/17 at 02:00 Miscellaneous Information 1 ea NOTE XX ; Start 03/19/17 at 15:30 Glucose (Glutose) 15 gm Q15M PRN PO DECREASED GLUCOSE; Start 03/19/17 at 15:30 Glucose (Glutose) 22.5 gm Q15M PRN PO DECREASED GLUCOSE; Start 03/19/17 at 15:30 Dextrose (D50w Syringe) 25 ml Q15M PRN IV DECREASED GLUCOSE; Start 03/19/17 at 15:30 Dextrose (D50w Syringe) 50 ml Q15M PRN IV DECREASED GLUCOSE; Start 03/19/17 at 15:30 Glucagon (Glucagen) 1 mg Q15M PRN IM DECREASED GLUCOSE; Start 03/19/17 at 15:30 Glucose (Glutose) 15 gm Q15M PRN BUCCAL DECREASED GLUCOSE; Start 03/19/17 at 15: 30 Nicotine (Nicoderm 21 Mg/ 24hr) 1 patch DAILY TRANSDERM Last administered on 10:43; Admin Dose 1 PATCH; Start 03/20/17 at 09:12 Pantoprazole 40 mg 40 mg BID@06,18 PO ; Start 03/20/17 at 18:00 Lactated Ringer's (Lr) 1,000 ml @ 100 mls/hr Q10H IV Last administered on t 10:43; Admin Dose 100 MLS/HR; Start 03/20/17 at 10:00 JACQUIE DELVALLE NP Mar 20, 2017 12:20
--- NOTE | 2017-03-20 15:06 | RADRPT ---
PROCEDURE: MRCP without contrast. CLINICAL INDICATION: Elevated bilirubin. TECHNIQUE: Routine MRCP was obtained without the administration of intravenous contrast. COMPARISON: CT, 03/18/2017. FINDINGS: Gallbladder is decompressed. There is small fluid and inflammation in the gallbladder fossa and sub hepatic space. The biliary system is nondilated. No radiologic evidence of choledocholithiasis. The pancreatic duct is within normal limits. IMPRESSION: Small free fluid and inflammation surrounding the contracted gallbladder within the gallbladder dali a and subhepatic space. No radiologic evidence of biliary dilatation, choledocholithiasis, or biliary obstruction. RPTAT: EE .Biju Gomez MD, MD Date Time Electronically viewed and signed by .Biju Gomez MD, MD on 03/20/2017 15:11 .C/
[2017-03-20] MEDS: PANTOPRAZOLE (EC) 40 MG TAB PO SCH (17:54)
[2017-03-20 19:41] VITALS: BP 110/68; RESP 20
[2017-03-20] MEDS: traMADol 50 MG TAB PO PRN (20:18)
[2017-03-20] MEDS: INSULIN GLARGINE [LANtus] 3 ML PEN SC SCH (20:41)
[2017-03-21] MEDS: ACCU-CHEK XX SCH (01:18)
[2017-03-21] MEDS: morphine 2 MG INJ IV PRN ×4 (04:42→21:24)
[2017-03-21] MEDS: PANTOPRAZOLE (EC) 40 MG TAB PO SCH ×2 (06:16→18:21)
[2017-03-21] MEDS: LACTATED RINGER'S 1,000 ML IV SCH ×3 (06:16→17:25)
[2017-03-21 07:09] LABS: BASOPHIL # 0.1 10^3/ul (0.0-0.1); BASOPHILS % 1.1 % (0.0-2.0); EOSINOPHILS # 0.2 10^3/ul (0.0-0.5); EOSINOPHILS % 1.8 % (0.0-7.0); HEMOGLOBIN 13.6 g/dl (12.0-16.0); LYMPHOCYTES # 1.5 10^3/ul (0.8-2.9); LYMPHOCYTES % 17.9 % (15.0-51.0); MEAN CORPUSCULAR HEMOGLOBIN 30.2 pg (29.0-33.0); MEAN CORPUSCULAR HGB CONC 34.9 g/dl (32.0-37.0); MEAN CORPUSCULAR VOLUME 86.5 fl (82.0-101.0); MEAN PLATELET VOLUME 12.7 fl (7.4-10.4); MONOCYTE # 0.8 10^3/ul (0.3-0.9); MONOCYTES % 9.8 % (0.0-11.0); NEUTROPHIL # 5.8 10^3/ul (1.6-7.5); NEUTROPHILS % 68.5 % (39.0-77.0); PLATELET COUNT 261 10^3/UL (140-415); RED BLOOD COUNT 4.51 10^6/ul (4.20-5.40); RED CELL DISTRIBUTION WIDTH 15.8 % (11.5-14.5); WHITE BLOOD COUNT 8.5 10^3/ul (4.8-10.8)
[2017-03-21 07:38] VITALS: BP 122/66; RESP 20
[2017-03-21 07:46] LABS: PHOSPHORUS 3.7 mg/dl (2.5-4.9)
[2017-03-21] MEDS: ALBUTEROL/IPRATROPIUM (NEB) 3 ML AMP HHN SCH ×3 (08:02→20:01)
[2017-03-21] MEDS: INSULIN ASPART [NOVOLOG] 3 ML PEN SC SCH ×7 (08:07→21:00)
[2017-03-21 08:26] LABS: MAGNESIUM 1.6 mg/dl (1.7-2.5)
[2017-03-21 08:31] LABS: ALBUMIN 3.1 g/dl (3.3-4.9); ALBUMIN/GLOBULIN RATIO 1.19; BILIRUBIN,INDIRECT 1.8 mg/dl (0-1.1); BILIRUBIN,TOTAL 11.8 mg/dl (0.2-1.3); CALCIUM 8.7 mg/dl (8.4-10.2); CREATININE 0.57 mg/dl (0.44-1.00); POTASSIUM 3.6 mmol/L (3.5-5.1); TOTAL PROTEIN 5.7 g/dl (6.1-8.1)
[2017-03-21] MEDS: NICOTINE (21 MG/24 HR) PATCH TRANSDERM SCH (09:17)
[2017-03-21] MEDS: SERTRALINE 50 MG TAB PO SCH (09:17)
[2017-03-21] MEDS: METOPROLOL (XL) 25 MG TAB PO SCH (09:20)
--- NOTE | 2017-03-21 12:58 | PN ---
Date/Time of Note Date/Time of Note DATE: 03/21/17 TIME: 12:45 Assessment/Plan VTE Prophylaxis VTE Prophylaxis Intervention: SCD's Lines/Catheters IV [facility] (from [facility]): Peripheral IV Assessment/Plan Chief Complaint/Hosp Course A/P: 56 F with: 1. Transaminitis with hyperbilirubinemia. Etiology unclear. Hepatitis C antibody positive. Awaiting results for evaluation of autoimmune hepatitis. MRCP performed - showed small free fluid and inflammation surrounding the contracted gallbladder within the gallbladder fossa and subhepatic space. No radiologic evidence of biliary dilatation, choledocholithiasis, or biliary obstruction. - Avoid hepatotoxic medications. Low-cholesterol diet. - f/u with GI rec's regarding elevated LFT's, and MRCP results - may benefit from ERCP? Also may need to start tx for + Hep 2. COPD. No evidence of exacerbation. Continue inhaled bronchodilators around -the-clock and on a as needed basis. 3. Depression. Continue antidepressants. 4. Type 2 diabetes mellitus - FS improved- Hemoglobin A1c 11.1. -Continue sliding scale insulin along with the pre-meal insulin and Lantus insulin. 5. Dyslipidemia. Elevated triglycerides and suboptimal HDL. Low-cholesterol diet. Unable to use any statins because of underlying transaminitis and hyperbilirubinemia. 6. Nicotine use. On a nicotine patch. Cessation advised. 7. Obesity. BMI of 34.2 kg/m. Weight reduction advised. 8. Fluids, electrolytes, and nutrition. Clear liquid diet. 9. DVT prophylaxis. Bilateral sequential compression devices. 10. Gastrointestinal prophylaxis. Proton pump inhibitors. Problems: Subjective 24 Hr Interval Summary Free Text/Dictation Pt had MRCP yesterday, still on CLD. Exam/Review of Systems Vital Signs Vitals Vital Signs Date Time Temp Pulse Resp B/P Pulse Ox O2 Delivery O2 Flow Rate FiO2 03/21/17 08:00 68 16 94 21 03/21/17 07:38 98.8 122/66 03/20/17 09:28 Room Air Intake and Output 03/20/17 03/20/17 03/21/17 15:00 23:00 07:00 Intake Total 1585 ml 1920 ml Balance 1585 ml 1920 ml Exam General: obese, lying in bed in no apparent distress. HEENT: Normocephalic, atraumatic. Eyes: Anicteric sclerae, conjunctivae clear. ENT: Nasal septum midline, oral mucosa moist. Neck supple, no JVD noticed. Respiratory: Bilaterally clear breath sounds. No use of accessory muscles of respiration. less bilateral rhonchi. Cardiovascular: S1, S2 heard. No murmurs or gallops. Abdomen: Soft, nontender, and nondistended. Bowel sounds positive in all 4 quadrants. Extremities: No cyanosis, no clubbing, no edema. Neurologic: Cranial nerves II through XII grossly intact. The patient is awake, alert, and oriented. Skin: Normal skin turgor. No skin rashes. Results Result Diagram: 03/21/17 0645 03/21/17 0645 Results 24 hrs Laboratory Tests Test 03/20/17 17:52 03/20/17 20:12 03/21/17 06:45 03/21/17 08:01 Bedside Glucose 125 100 93 White Blood Count 8.5 Red Blood Count 4.51 Hemoglobin 13.6 Hematocrit 39.0 Mean Corpuscular Volume 86.5 Mean Corpuscular Hemoglobin 30.2 Mean Corpuscular Hemoglobin Concent 34.9 Red Cell Distribution Width 15.8 H Platelet Count 261 Mean Platelet Volume 12.7 H Neutrophils % 68.5 Lymphocytes % 17.9 Monocytes % 9.8 Eosinophils % 1.8 Basophils % 1.1 Nucleated Red Blood Cells % 0.0 Neutrophils # 5.8 Lymphocytes # 1.5 Monocytes # 0.8 Eosinophils # 0.2 Basophils # 0.1 Nucleated Red Blood Cells # 0.0 Sodium Level 135 Potassium Level 3.6 Chloride Level 100 Carbon Dioxide Level 24 Anion Gap 15 Blood Urea Nitrogen 5 L Creatinine 0.57 Glucose Level 90 # Calcium Level 8.7 Phosphorus Level 3.7 Magnesium Level 1.6 L Total Bilirubin 11.8 H Direct Bilirubin 10.00 H Indirect Bilirubin 1.8 H Aspartate Amino Transf (AST/SGOT) 1434 H Alanine Aminotransferase (ALT/SGPT) 643 H Alkaline Phosphatase 198 H Total Protein 5.7 L Albumin 3.1 L Globulin 2.60 Albumin/Globulin Ratio 1.19 Test 03/21/17 12:09 Bedside Glucose 86 Medications Medications Current Medications Ondansetron HCl (Zofran Inj) 4 mg Q6H PRN IV NAUSEA AND/OR VOMITING; Start 03/19 at 02:30 Acetaminophen (Tylenol Tab) 650 mg Q6H PRN PO PAIN LEVEL 1-3 OR FEVER; Start at 02:30 Morphine Sulfate (morphine) 1 mg Q4H PRN IV SEVERE PAIN LEVEL 7-10 Last administered on 03/21/17 12:03; Admin Dose 1 MG; Start 03/19/17 at 02:30 Docusate Sodium (Colace) 100 mg Q12H PRN PO CONSTIPATION; Start 03/19/17 at 02: 30 Bisacodyl (Dulcolax) 5 mg DAILY PRN PO CONSTIPATION; Start 03/19/17 at 02:30 Metoprolol Succinate (Toprol Xl) 25 mg DAILY PO Last administered on 03/21/17 09:20; Admin Dose 25 MG; Start 03/19/17 at 09:00 Sertraline HCl (Zoloft) 50 mg DAILY PO Last administered on 03/21/17 09:17; Admin Dose 50 MG; Start 03/19/17 at 09:00 Tramadol HCl (Ultram) 50 mg Q12 PRN PO PAIN Last administered on 03/20/17 20:18 ; Admin Dose 50 MG; Start 03/19/17 at 05:30 Insulin Glargine (Lantus) 18 unit DAILY@20 SC Last administered on 03/20/17 20: 41; Admin Dose 18 UNIT; Start 03/19/17 at 20:00 Diagnostic Test (Pha) (Accu-Chek) 1 ea 02 XX ; Start 03/20/17 at 02:00 Miscellaneous Information 1 ea NOTE XX ; Start 03/19/17 at 15:30 Glucose (Glutose) 15 gm Q15M PRN PO DECREASED GLUCOSE; Start 03/19/17 at 15:30 Glucose (Glutose) 22.5 gm Q15M PRN PO DECREASED GLUCOSE; Start 03/19/17 at 15:30 Dextrose (D50w Syringe) 25 ml Q15M PRN IV DECREASED GLUCOSE; Start 03/19/17 at 15:30 Dextrose (D50w Syringe) 50 ml Q15M PRN IV DECREASED GLUCOSE; Start 03/19/17 at 15:30 Glucagon (Glucagen) 1 mg Q15M PRN IM DECREASED GLUCOSE; Start 03/19/17 at 15:30 Glucose (Glutose) 15 gm Q15M PRN BUCCAL DECREASED GLUCOSE; Start 03/19/17 at 15: 30 Nicotine (Nicoderm 21 Mg/ 24hr) 1 patch DAILY TRANSDERM Last administered on 09:17; Admin Dose 1 PATCH; Start 03/20/17 at 09:12 Pantoprazole 40 mg 40 mg BID@06,18 PO Last administered on 03/21/17 06:16; Admin Dose 40 MG; Start 03/20/17 at 18:00 Lactated Ringer's (Lr) 1,000 ml @ 100 mls/hr Q10H IV Last administered on 06:16; Admin Dose 100 MLS/HR; Start 03/20/17 at 10:00 FAIZAN LORENZO Mar 21, 2017 12:55
[2017-03-21] MEDS: traMADol 50 MG TAB PO PRN (19:55)
[2017-03-21] MEDS: INSULIN GLARGINE [LANtus] 3 ML PEN SC SCH (20:00)
[2017-03-21 20:12] VITALS: BP 154/79; RESP 20
[2017-03-21] MEDS ORDERED: INSULIN GLARGINE [LANtus] 3 ML PEN SC ONE (21:30)
[2017-03-22] MEDS: ZOLPIDEM 5 MG TAB PO PRN ×2 (01:17→21:25)
[2017-03-22] MEDS: LACTATED RINGER'S 1,000 ML IV SCH ×5 (02:00→22:00)
[2017-03-22] MEDS: ACCU-CHEK XX SCH (02:00)
[2017-03-22 05:35] LABS: ADD SCAN DIFF NO
[2017-03-22 05:40] LABS: BASOPHIL # 0.1 10^3/ul (0.0-0.1); BASOPHILS % 0.9 % (0.0-2.0); EOSINOPHILS # 0.1 10^3/ul (0.0-0.5); EOSINOPHILS % 1.4 % (0.0-7.0); HEMATOCRIT 37.9 % (37.0-47.0); HEMOGLOBIN 13.1 g/dl (12.0-16.0); LYMPHOCYTES # 1.3 10^3/ul (0.8-2.9); LYMPHOCYTES % 17.5 % (15.0-51.0); MEAN CORPUSCULAR HEMOGLOBIN 29.5 pg (29.0-33.0); MEAN CORPUSCULAR HGB CONC 34.6 g/dl (32.0-37.0); MEAN CORPUSCULAR VOLUME 85.4 fl (82.0-101.0); MEAN PLATELET VOLUME 12.3 fl (7.4-10.4); MONOCYTE # 0.7 10^3/ul (0.3-0.9); MONOCYTES % 9.6 % (0.0-11.0); NEUTROPHIL # 5.3 10^3/ul (1.6-7.5); NEUTROPHILS % 69.9 % (39.0-77.0); PLATELET COUNT 294 10^3/UL (140-415); RED BLOOD COUNT 4.44 10^6/ul (4.20-5.40); RED CELL DISTRIBUTION WIDTH 16.4 % (11.5-14.5); WHITE BLOOD COUNT 7.6 10^3/ul (4.8-10.8)
[2017-03-22] MEDS: PANTOPRAZOLE (EC) 40 MG TAB PO SCH ×2 (06:00→17:49)
[2017-03-22] MEDS: morphine 2 MG INJ IV PRN ×2 (06:01→19:54)
[2017-03-22 06:43] LABS: ALBUMIN 2.9 g/dl (3.3-4.9); BILIRUBIN,DIRECT 10.3 mg/dl (0.00-0.20); BILIRUBIN,INDIRECT 1.8 mg/dl (0-1.1); BILIRUBIN,TOTAL 12.1 mg/dl (0.2-1.3); TOTAL PROTEIN 5.4 g/dl (6.1-8.1)
[2017-03-22] MEDS: ALBUTEROL/IPRATROPIUM (NEB) 3 ML AMP HHN SCH ×3 (07:35→21:00)
[2017-03-22 07:41] VITALS: BP 124/67; RESP 20
[2017-03-22] MEDS: INSULIN ASPART [NOVOLOG] 3 ML PEN SC SCH ×7 (08:15→21:00)
[2017-03-22] MEDS: NICOTINE (21 MG/24 HR) PATCH TRANSDERM SCH (09:11)
[2017-03-22] MEDS: METOPROLOL (XL) 25 MG TAB PO SCH (09:12)
[2017-03-22] MEDS: SERTRALINE 50 MG TAB PO SCH (09:12)
[2017-03-22] MEDS: traMADol 50 MG TAB PO PRN ×2 (09:30→21:26)
--- NOTE | 2017-03-22 11:06 | PN ---
Date/Time of Note Date/Time of Note DATE: 03/22/17 TIME: 11:03 Assessment/Plan VTE Prophylaxis VTE Prophylaxis Intervention: SCD's Lines/Catheters [facility] (from [facility] Peripheral IV Urinary Cath still in place: Yes Reason Cath still needed: urinary retention Assessment/Plan Chief Complaint/Hosp Course A/P: 56 F with: 1. Transaminitis with hyperbilirubinemia. Etiology unclear. Hepatitis C antibody positive. Awaiting results for evaluation of autoimmune hepatitis. MRCP performed - showed small free fluid and inflammation surrounding the contracted gallbladder within the gallbladder fossa and subhepatic space. No radiologic evidence of biliary dilatation, choledocholithiasis, or biliary obstruction. - Avoid hepatotoxic medications. Low-cholesterol diet. - f/u with GI rec's regarding elevated LFT's, and MRCP results - may benefit from ERCP? - f/u ethanol level 2. COPD. No evidence of exacerbation. Continue inhaled bronchodilators around -the-clock and on an as needed basis. 3. Depression. Continue antidepressants. 4. Type 2 diabetes mellitus - FS improved- Hemoglobin A1c 11.1. -Continue sliding scale insulin along with the pre-meal insulin and Lantus insulin. 5. Dyslipidemia. Elevated triglycerides and suboptimal HDL. Low-cholesterol diet. Unable to use any statins because of underlying transaminitis and hyperbilirubinemia. 6. Nicotine use. On a nicotine patch. Cessation advised. 7. Obesity. BMI of 34.2 kg/m. Weight reduction advised. 8. Fluids, electrolytes, and nutrition. Clear liquid diet. 9. DVT prophylaxis. Bilateral sequential compression devices. 10. Gastrointestinal prophylaxis. Proton pump inhibitors. Problems: Subjective 24 Hr Interval Summary Free Text/Dictation Pt had no acute events overnight. Exam/Review of Systems Vital Signs Vitals Vital Signs Date Time Temp Pulse Resp B/P Pulse Ox O2 Delivery O2 Flow Rate FiO2 03/22/17 07:41 98.1 75 20 124/67 99 03/22/17 07:35 21 03/20/17 09:28 Room Air Intake and Output 03/21/17 03/21/17 03/22/17 15:00 23:00 07:00 Intake Total 2760 ml 1800 ml Output Total 0 ml 1650 ml Balance 2760 ml 150 ml Exam General: obese, lying in bed in no apparent distress. HEENT: Normocephalic, atraumatic. Eyes: Anicteric sclerae, conjunctivae clear. ENT: Nasal septum midline, oral mucosa moist. Neck supple, no JVD noticed. Respiratory: Bilaterally clear breath sounds. No use of accessory muscles of respiration. less bilateral rhonchi. Cardiovascular: S1, S2 heard. No murmurs or gallops. Abdomen: Soft, nontender, and nondistended. Bowel sounds positive in all 4 quadrants. Extremities: No cyanosis, no clubbing, no edema. Neurologic: Cranial nerves II through XII grossly intact. The patient is awake, alert, and oriented. Skin: Normal skin turgor. No skin rashes. Results Result Diagram: 03/22/17 0511 03/21/17 0645 Results 24 hrs Laboratory Tests Test 03/21/17 12:09 03/21/17 17:23 03/21/17 21:15 03/22/17 05:11 Bedside Glucose 86 88 105 White Blood Count 7.6 Red Blood Count 4.44 Hemoglobin 13.1 Hematocrit 37.9 Mean Corpuscular Volume 85.4 Mean Corpuscular Hemoglobin 29.5 Mean Corpuscular Hemoglobin Concent 34.6 Red Cell Distribution Width 16.4 H Platelet Count 294 Mean Platelet Volume 12.3 H Neutrophils % 69.9 Lymphocytes % 17.5 Monocytes % 9.6 Eosinophils % 1.4 Basophils % 0.9 Nucleated Red Blood Cells % 0.0 Neutrophils # 5.3 Lymphocytes # 1.3 Monocytes # 0.7 Eosinophils # 0.1 Basophils # 0.1 Nucleated Red Blood Cells # 0.0 Total Bilirubin 12.1 H Direct Bilirubin 10.30 H Indirect Bilirubin 1.8 H Aspartate Amino Transf (AST/SGOT) Alanine Aminotransferase (ALT/SGPT) 642 H Alkaline Phosphatase 184 H Total Protein 5.4 L Albumin 2.9 L Test 03/22/17 09:05 03/22/17 09:28 03/22/17 09:54 Bedside Glucose 67 L 115 104 Medications Medications Current Medications Ondansetron HCl (Zofran Inj) 4 mg Q6H PRN IV NAUSEA AND/OR VOMITING; Start 03/19 at 02:30 Acetaminophen (Tylenol Tab) 650 mg Q6H PRN PO PAIN LEVEL 1-3 OR FEVER; Start at 02:30 Morphine Sulfate (morphine) 1 mg Q4H PRN IV SEVERE PAIN LEVEL 7-10 Last administered on 03/22/17 06:01; Admin Dose 1 MG; Start 03/19/17 at 02:30 Docusate Sodium (Colace) 100 mg Q12H PRN PO CONSTIPATION; Start 03/19/17 at 02: 30 Bisacodyl (Dulcolax) 5 mg DAILY PRN PO CONSTIPATION; Start 03/19/17 at 02:30 Metoprolol Succinate (Toprol Xl) 25 mg DAILY PO Last administered on 03/22/17 09:12; Admin Dose 25 MG; Start 03/19/17 at 09:00 Sertraline HCl (Zoloft) 50 mg DAILY PO Last administered on 03/22/17 09:12; Admin Dose 50 MG; Start 03/19/17 at 09:00 Tramadol HCl (Ultram) 50 mg Q12 PRN PO PAIN Last administered on 03/22/17 09:30 ; Admin Dose 50 MG; Start 03/19/17 at 05:30 Diagnostic Test (Pha) (Accu-Chek) 1 ea 02 XX ; Start 03/20/17 at 02:00 Miscellaneous Information 1 ea NOTE XX ; Start 03/19/17 at 15:30 Glucose (Glutose) 15 gm Q15M PRN PO DECREASED GLUCOSE; Start 03/19/17 at 15:30 Glucose (Glutose) 22.5 gm Q15M PRN PO DECREASED GLUCOSE; Start 03/19/17 at 15:30 Dextrose (D50w Syringe) 25 ml Q15M PRN IV DECREASED GLUCOSE; Start 03/19/17 at 15:30 Dextrose (D50w Syringe) 50 ml Q15M PRN IV DECREASED GLUCOSE; Start 03/19/17 at 15:30 Glucagon (Glucagen) 1 mg Q15M PRN IM DECREASED GLUCOSE; Start 03/19/17 at 15:30 Glucose (Glutose) 15 gm Q15M PRN BUCCAL DECREASED GLUCOSE; Start 03/19/17 at 15: 30 Nicotine (Nicoderm 21 Mg/ 24hr) 1 patch DAILY TRANSDERM Last administered on 09:11; Admin Dose 1 PATCH; Start 03/20/17 at 09:12 Pantoprazole 40 mg 40 mg BID@,18 PO Last administered on 03/22/17 06:00; Admin Dose 40 MG; Start 03/20/17 at 18:00 Lactated Ringer's (Lr) 1,000 ml @ 100 mls/hr Q10H IV Last administered on 02:52; Admin Dose 100 MLS/HR; Start 03/20/17 at 10:00 Zolpidem Tartrate (Ambien) 5 mg HS PRN PO INSOMNIA Last administered on 01:17; Admin Dose 5 MG; Start 03/22/17 at 00:00 FAIZAN LORENZO Mar 22, 2017 11:05
--- NOTE | 2017-03-22 17:17 | CONS ---
Date/Time of Note Date/Time of Note DATE: 03/22/17 TIME: 17:15 Assessment/Plan Assessment/Plan Chief Complaint/Hosp Course Impression: #1 Hyperbilirubinemia: Elevated direct bilirubin, transaminitis with an elevated alk phos concerning for possible early obstruction. Ultrasound and CAT scan however did not show any sign of any obstructive pattern. MRCP did not show bryson dil or gallstones so no indication for ERCP. #2 transaminitis: AST:ALT ratio of 2:1 highly suggest EtOH use but pt denied. #3: HCV positive: await viral load #4 Medical [facility] use Recommendation: 1. no indication for ERCP 2. f/u TIM/autoimmune labs. Ceruloplasmin, alpha-1 antitrypsin. iron panel 3. as transaminases and bilirubin improving, ok from GI perspective to discharge to follow up with Dr. Russ if ok with primary and other consultants. 3. consider liver biopsy if MRCP is unrevealing and if labs do not improve. 4. will change diet to clear liquids as LFT worsening Problems: Consultation Date/Type/Reason Admit Date/Time Mar 18, 2017 at 22:14 Initial Consult Date 03/19/17 Type of Consultation: GI 24 HR Interval Summary Free Text/Dictation no acute events, no n/v Exam/Review of Systems Vital Signs Vitals Vital Signs Date Time Temp Pulse Resp B/P Pulse Ox O2 Delivery O2 Flow Rate FiO2 03/22/17 13:16 67 18 98 21 03/22/17 07:41 98.1 124/67 03/20/17 09:28 Room Air Intake and Output 03/21/17 03/21/17 03/22/17 15:00 23:00 07:00 Intake Total 2760 ml 1800 ml Output Total 0 ml 1650 ml Balance 2760 ml 150 ml Exam Constitutional: alert, oriented, well developed Psych: nl mood/affect, no complaints Head: atraumatic, normocephalic Eyes: icteric ENMT: mucosa pink and moist, nl external ears & nose, nl lips & teeth, nl nasal mucosa & septum Neck: non-tender, supple Respiratory: clear to auscultation, normal air movement Cardiovascular: nl pulses, regular rate and rhythm Gastrointestinal: bowel sounds, non-tender, soft Results Result Diagram: 03/22/17 0511 03/21/17 0645 Results 24 hrs Laboratory Tests Test 03/21/17 17:23 03/21/17 21:15 03/22/17 05:11 03/22/17 09:05 Bedside Glucose 88 105 67 L White Blood Count 7.6 Red Blood Count 4.44 Hemoglobin 13.1 Hematocrit 37.9 Mean Corpuscular Volume 85.4 Mean Corpuscular Hemoglobin 29.5 Mean Corpuscular Hemoglobin Concent 34.6 Red Cell Distribution Width 16.4 H Platelet Count 294 Mean Platelet Volume 12.3 H Neutrophils % 69.9 Lymphocytes % 17.5 Monocytes % 9.6 Eosinophils % 1.4 Basophils % 0.9 Nucleated Red Blood Cells % 0.0 Neutrophils # 5.3 Lymphocytes # 1.3 Monocytes # 0.7 Eosinophils # 0.1 Basophils # 0.1 Nucleated Red Blood Cells # 0.0 Total Bilirubin 12.1 H Direct Bilirubin 10.30 H Indirect Bilirubin 1.8 H Aspartate Amino Transf (AST/SGOT) Alanine Aminotransferase (ALT/SGPT) 642 H Alkaline Phosphatase 184 H Total Protein 5.4 L Albumin 2.9 L Test 03/22/17 09:28 03/22/17 09:54 03/22/17 11:25 03/22/17 12:19 Bedside Glucose 115 104 81 Ethyl Alcohol Level < 10.0 Medications Medications Current Medications Ondansetron HCl (Zofran Inj) 4 mg Q6H PRN IV NAUSEA AND/OR VOMITING; Start 03/19 at 02:30 Acetaminophen (Tylenol Tab) 650 mg Q6H PRN PO PAIN LEVEL 1-3 OR FEVER; Start at 02:30 Morphine Sulfate (morphine) 1 mg Q4H PRN IV SEVERE PAIN LEVEL 7-10 Last administered on 03/22/17 06:01; Admin Dose 1 MG; Start 03/19/17 at 02:30 Docusate Sodium (Colace) 100 mg Q12H PRN PO CONSTIPATION; Start 03/19/17 at 02: 30 Bisacodyl (Dulcolax) 5 mg DAILY PRN PO CONSTIPATION; Start 03/19/17 at 02:30 Metoprolol Succinate (Toprol Xl) 25 mg DAILY PO Last administered on 03/22/17 09:12; Admin Dose 25 MG; Start 03/19/17 at 09:00 Sertraline HCl (Zoloft) 50 mg DAILY PO Last administered on 03/22/17 09:12; Admin Dose 50 MG; Start 03/19/17 at 09:00 Tramadol HCl (Ultram) 50 mg Q12 PRN PO PAIN Last administered on 03/22/17 09:30 ; Admin Dose 50 MG; Start 03/19/17 at 05:30 Diagnostic Test (Pha) (Accu-Chek) 1 ea 02 XX ; Start 03/20/17 at 02:00 Miscellaneous Information 1 ea NOTE XX ; Start 03/19/17 at 15:30 Glucose (Glutose) 15 gm Q15M PRN PO DECREASED GLUCOSE; Start 03/19/17 at 15:30 Glucose (Glutose) 22.5 gm Q15M PRN PO DECREASED GLUCOSE; Start 03/19/17 at 15:30 Dextrose (D50w Syringe) 25 ml Q15M PRN IV DECREASED GLUCOSE; Start 03/19/17 at 15:30 Dextrose (D50w Syringe) 50 ml Q15M PRN IV DECREASED GLUCOSE; Start 03/19/17 at 15:30 Glucagon (Glucagen) 1 mg Q15M PRN IM DECREASED GLUCOSE; Start 03/19/17 at 15:30 Glucose (Glutose) 15 gm Q15M PRN BUCCAL DECREASED GLUCOSE; Start 03/19/17 at 15: 30 Nicotine (Nicoderm 21 Mg/ 24hr) 1 patch DAILY TRANSDERM Last administered on 09:11; Admin Dose 1 PATCH; Start 03/20/17 at 09:12 Pantoprazole 40 mg 40 mg BID@06,18 PO Last administered on 03/22/17 06:00; Admin Dose 40 MG; Start 03/20/17 at 18:00 Lactated Ringer's (Lr) 1,000 ml @ 100 mls/hr Q10H IV Last administered on 15:31; Admin Dose 100 MLS/HR; Start 03/20/17 at 10:00 Zolpidem Tartrate (Ambien) 5 mg HS PRN PO INSOMNIA Last administered on 01:17; Admin Dose 5 MG; Start 03/22/17 at 00:00 Insulin Glargine (Lantus) 12 unit DAILY@20 SC ; Start 03/22/17 at 20:00 PAKO BEEBE MD Mar 22, 2017 17:17
[2017-03-22 20:00] VITALS: BP 164/95; RESP 18
[2017-03-22] MEDS: INSULIN GLARGINE [LANtus] 3 ML PEN SC SCH (20:00)
[2017-03-22] MEDS ORDERED: INSULIN GLARGINE [LANtus] 3 ML PEN SC ONE (21:30)
[2017-03-22 22:00] VITALS: BP 153/89; PULSE 72
[2017-03-23] MEDS: ACCU-CHEK XX SCH (02:00)
[2017-03-23 05:28] LABS: ADD SCAN DIFF NO
[2017-03-23 05:39] LABS: BASOPHIL # 0.1 10^3/ul (0.0-0.1); BASOPHILS % 1.4 % (0.0-2.0); EOSINOPHILS # 0.2 10^3/ul (0.0-0.5); EOSINOPHILS % 2.5 % (0.0-7.0); HEMATOCRIT 39.6 % (37.0-47.0); HEMOGLOBIN 13.8 g/dl (12.0-16.0); LYMPHOCYTES # 1.5 10^3/ul (0.8-2.9); MEAN CORPUSCULAR HEMOGLOBIN 29.8 pg (29.0-33.0); MEAN CORPUSCULAR HGB CONC 34.8 g/dl (32.0-37.0); MEAN CORPUSCULAR VOLUME 85.5 fl (82.0-101.0); MEAN PLATELET VOLUME 12.4 fl (7.4-10.4); MONOCYTE # 0.7 10^3/ul (0.3-0.9); NEUTROPHILS % 61.5 % (39.0-77.0); PLATELET COUNT 305 10^3/UL (140-415); RED BLOOD COUNT 4.63 10^6/ul (4.20-5.40); RED CELL DISTRIBUTION WIDTH 16.9 % (11.5-14.5); WHITE BLOOD COUNT 6.4 10^3/ul (4.8-10.8)
[2017-03-23] MEDS: PANTOPRAZOLE (EC) 40 MG TAB PO SCH ×2 (05:55→17:53)
[2017-03-23] MEDS: morphine 2 MG INJ IV PRN ×2 (05:57→22:17)
[2017-03-23 06:16] LABS: ALBUMIN 2.8 g/dl (3.3-4.9); BILIRUBIN,DIRECT 11.3 mg/dl (0.00-0.20); BILIRUBIN,TOTAL 13.3 mg/dl (0.2-1.3); TOTAL PROTEIN 5.4 g/dl (6.1-8.1)
[2017-03-23] MEDS: ALBUTEROL/IPRATROPIUM (NEB) 3 ML AMP HHN SCH ×3 (07:29→19:56)
[2017-03-23 07:42] VITALS: BP 130/72; RESP 18
[2017-03-23] MEDS: INSULIN ASPART [NOVOLOG] 3 ML PEN SC SCH ×7 (07:58→20:24)
[2017-03-23] MEDS: LACTATED RINGER'S 1,000 ML IV SCH ×3 (07:59→17:32)
[2017-03-23] MEDS: METOPROLOL (XL) 25 MG TAB PO SCH (08:02)
[2017-03-23] MEDS: SERTRALINE 50 MG TAB PO SCH (08:02)
[2017-03-23] MEDS: NICOTINE (21 MG/24 HR) PATCH TRANSDERM SCH (08:03)
--- NOTE | 2017-03-23 11:19 | PN ---
Date/Time of Note Date/Time of Note DATE: 03/23/17 TIME: 11:11 Assessment/Plan VTE Prophylaxis VTE Prophylaxis Intervention: SCD's Lines/Catheters IV [facility] Type (from [facility] Peripheral IV Urinary Cath still in place: Yes Reason Cath still needed: urinary retention Assessment/Plan Chief Complaint/Hosp Course A/P: 56 F with: 1. Transaminitis with hyperbilirubinemia. Etiology unclear. LFT's still quite elevated, including bili's (total and direct). Hepatitis C antibody positive. Awaiting results for evaluation of autoimmune hepatitis. MRCP performed - showed small free fluid and inflammation surrounding the contracted gallbladder within the gallbladder fossa and subhepatic space. No radiologic evidence of biliary dilatation, choledocholithiasis, or biliary obstruction. - Avoid hepatotoxic medications. Low-cholesterol diet. - f/u with GI rec's regarding elevated LFT's, and MRCP results - f/u outside labs as well (Hep C PCR, anti Sm ab, TIM, etc...) 2. COPD. No evidence of exacerbation. Continue inhaled bronchodilators around -the-clock and on an as needed basis. 3. Depression. Continue antidepressants. 4. Type 2 diabetes mellitus - FS improved- Hemoglobin A1c 11.1. -Continue sliding scale insulin along with the pre-meal insulin and Lantus insulin. 5. Dyslipidemia. Elevated triglycerides and suboptimal HDL. Low-cholesterol diet. Unable to use any statins because of underlying transaminitis and hyperbilirubinemia. 6. Nicotine use. On a nicotine patch. Cessation advised. 7. Obesity. BMI of 34.2 kg/m. Weight reduction advised. 8. Fluids, electrolytes, and nutrition. Clear liquid diet. 9. DVT prophylaxis. Bilateral sequential compression devices. 10. Gastrointestinal prophylaxis. Proton pump inhibitors. Problems: Subjective 24 Hr Interval Summary Free Text/Dictation No acute events overnight. Exam/Review of Systems Vital Signs Vitals Vital Signs Date Time Temp Pulse Resp B/P Pulse Ox O2 Delivery O2 Flow Rate FiO2 03/23/17 07:42 97.2 80 18 130/72 92 03/23/17 07:29 21 03/20/17 09:28 Room Air Intake and Output 03/22/17 03/22/17 03/23/17 15:00 23:00 07:00 Intake Total 3400 ml 2080 ml Output Total 2500 ml 3200 ml Balance 900 ml -1120 ml Exam General: obese, lying in bed in no apparent distress. HEENT: Normocephalic, atraumatic. Eyes: Anicteric sclerae, conjunctivae clear. ENT: Nasal septum midline, oral mucosa moist. Neck supple, no JVD noticed. Respiratory: Bilaterally clear breath sounds. No use of accessory muscles of respiration. less bilateral rhonchi. Cardiovascular: S1, S2 heard. No murmurs or gallops. Abdomen: Soft, nontender, and nondistended. Bowel sounds positive in all 4 quadrants. Extremities: No cyanosis, no clubbing, no edema. Neurologic: Cranial nerves II through XII grossly intact. The patient is awake, alert, and oriented. Skin: Normal skin turgor. No skin rashes. Results Result Diagram: 03/23/17 0510 03/21/17 0645 Results 24 hrs Laboratory Tests Test 03/22/17 11:25 03/22/17 12:19 03/22/17 17:33 03/22/17 21:16 Ethyl Alcohol Level < 10.0 Bedside Glucose 81 108 134 Test 03/23/17 05:10 03/23/17 07:56 White Blood Count 6.4 Red Blood Count 4.63 Hemoglobin 13.8 Hematocrit 39.6 Mean Corpuscular Volume 85.5 Mean Corpuscular Hemoglobin 29.8 Mean Corpuscular Hemoglobin Concent 34.8 Red Cell Distribution Width 16.9 H Platelet Count 305 Mean Platelet Volume 12.4 H Neutrophils % 61.5 Lymphocytes % 23.0 Monocytes % 11.0 Eosinophils % 2.5 Basophils % 1.4 Nucleated Red Blood Cells % 0.0 Neutrophils # 4.0 Lymphocytes # 1.5 Monocytes # 0.7 Eosinophils # 0.2 Basophils # 0.1 Nucleated Red Blood Cells # 0.0 Total Bilirubin 13.3 H Direct Bilirubin 11.30 H Indirect Bilirubin 2.0 H Aspartate Amino Transf (AST/SGOT) 1355 H Alanine Aminotransferase (ALT/SGPT) 609 H Alkaline Phosphatase 173 H Total Protein 5.4 L Albumin 2.8 L Bedside Glucose 93 Medications Medications Current Medications Ondansetron HCl (Zofran Inj) 4 mg Q6H PRN IV NAUSEA AND/OR VOMITING; Start 03/19 at 02:30 Acetaminophen (Tylenol Tab) 650 mg Q6H PRN PO PAIN LEVEL 1-3 OR FEVER; Start at 02:30 Morphine Sulfate (morphine) 1 mg Q4H PRN IV SEVERE PAIN LEVEL 7-10 Last administered on 03/23/17 05:57; Admin Dose 1 MG; Start 03/19/17 at 02:30 Docusate Sodium (Colace) 100 mg Q12H PRN PO CONSTIPATION; Start 03/19/17 at 02: 30 Bisacodyl (Dulcolax) 5 mg DAILY PRN PO CONSTIPATION; Start 03/19/17 at 02:30 Metoprolol Succinate (Toprol Xl) 25 mg DAILY PO Last administered on 03/23/17 08:02; Admin Dose 25 MG; Start 03/19/17 at 09:00 Sertraline HCl (Zoloft) 50 mg DAILY PO Last administered on 03/23/17 08:02; Admin Dose 50 MG; Start 03/19/17 at 09:00 Tramadol HCl (Ultram) 50 mg Q12 PRN PO PAIN Last administered on 03/22/17 21:26 ; Admin Dose 50 MG; Start 03/19/17 at 05:30 Diagnostic Test (Pha) (Accu-Chek) 1 ea 02 XX ; Start 03/20/17 at 02:00 Miscellaneous Information 1 ea NOTE XX ; Start 03/19/17 at 15:30 Glucose (Glutose) 15 gm Q15M PRN PO DECREASED GLUCOSE; Start 03/19/17 at 15:30 Glucose (Glutose) 22.5 gm Q15M PRN PO DECREASED GLUCOSE; Start 03/19/17 at 15:30 Dextrose (D50w Syringe) 25 ml Q15M PRN IV DECREASED GLUCOSE; Start 03/19/17 at 15:30 Dextrose (D50w Syringe) 50 ml Q15M PRN IV DECREASED GLUCOSE; Start 03/19/17 at 15:30 Glucagon (Glucagen) 1 mg Q15M PRN IM DECREASED GLUCOSE; Start 03/19/17 at 15:30 Glucose (Glutose) 15 gm Q15M PRN BUCCAL DECREASED GLUCOSE; Start 03/19/17 at 15: 30 Nicotine (Nicoderm 21 Mg/ 24hr) 1 patch DAILY TRANSDERM Last administered on 08:03; Admin Dose 1 PATCH; Start 03/20/17 at 09:12 Pantoprazole 40 mg 40 mg BID@06,18 PO Last administered on 03/23/17 05:55; Admin Dose 40 MG; Start 03/20/17 at 18:00 Lactated Ringer's (Lr) 1,000 ml @ 100 mls/hr Q10H IV Last administered on 21:39; Admin Dose 100 MLS/HR; Start 03/20/17 at 10:00 Zolpidem Tartrate (Ambien) 5 mg HS PRN PO INSOMNIA Last administered on 21:25; Admin Dose 5 MG; Start 03/22/17 at 00:00 Insulin Glargine (Lantus) 12 unit DAILY@20 SC ; Start 03/22/17 at 20:00 FAIZAN LORENZO Mar 23, 2017 11:19
[2017-03-23] MEDS ORDERED: ALBUTEROL 18 GM INHALER INH PRN (11:30)
[2017-03-23 13:11] LABS: ANA SCREEN NEGATIVE (NEGATIVE)
--- NOTE | 2017-03-23 13:48 | PN ---
Date/Time of Note Date/Time of Note DATE: 03/23/17 TIME: 13:41 Assessment/Plan VTE Prophylaxis VTE Prophylaxis Intervention: contraindicated VTE Contraindication Reason: blood coagulation disorder Lines/Catheters [facility] ([facility] Peripheral IV Urinary Cath still in place: Yes Reason Cath still needed: urinary retention Assessment/Plan Assessment/Plan Assessment * Jaundice hyperbilirubinemia transaminitis * Hepatitis C antibody positive Plan * await viral load * trend liver function * case was discussed with Dr Russ * Further orders will depend on clinical course Subjective 24 Hr Interval Summary Free Text/Dictation * Course reviewed with RN * Patient seen and examined * Still awaiting viral load result * Still elevated transaminases * Morelia and smooth muscle negative Exam/Review of Systems Vital Signs Vitals Vital Signs Date Time Temp Pulse Resp B/P Pulse Ox O2 Delivery O2 Flow Rate FiO2 03/23/17 07:42 97.2 80 18 130/72 92 03/23/17 07:29 21 03/20/17 09:28 Room Air Intake and Output 03/22/17 03/22/17 03/23/17 15:00 23:00 07:00 Intake Total 3400 ml 2080 ml Output Total 2500 ml 3200 ml Balance 900 ml -1120 ml Exam Constitutional: alert, oriented Eyes: icteric, nl conjunctiva Neck: non-tender, supple Respiratory: clear to auscultation, normal air movement Cardiovascular: nl pulses, regular rate and rhythm Gastrointestinal: non-tender, soft, No rebound or guarding Musculoskeletal: nl extremities to inspection, nl gait and stance Extremities: normal pulses Neurological: nl speech, nl strength Skin: nl turgor, rash or lesions Lymph: nl lymph nodes Results Result Diagram: 03/23/17 0510 03/21/17 0645 Results 24 hrs Laboratory Tests Test 03/22/17 17:33 03/22/17 21:16 03/23/17 05:10 03/23/17 07:56 Bedside Glucose 108 134 93 White Blood Count 6.4 Red Blood Count 4.63 Hemoglobin 13.8 Hematocrit 39.6 Mean Corpuscular Volume 85.5 Mean Corpuscular Hemoglobin 29.8 Mean Corpuscular Hemoglobin Concent 34.8 Red Cell Distribution Width 16.9 H Platelet Count 305 Mean Platelet Volume 12.4 H Neutrophils % 61.5 Lymphocytes % 23.0 Monocytes % 11.0 Eosinophils % 2.5 Basophils % 1.4 Nucleated Red Blood Cells % 0.0 Neutrophils # 4.0 Lymphocytes # 1.5 Monocytes # 0.7 Eosinophils # 0.2 Basophils # 0.1 Nucleated Red Blood Cells # 0.0 Hemoglobin A1c 10.3 H Total Bilirubin 13.3 H Direct Bilirubin 11.30 H Indirect Bilirubin 2.0 H Aspartate Amino Transf (AST/SGOT) 1355 H Alanine Aminotransferase (ALT/SGPT) 609 H Alkaline Phosphatase 173 H Total Protein 5.4 L Albumin 2.8 L Test 03/23/17 12:04 Bedside Glucose 89 Medications Medications Current Medications Ondansetron HCl (Zofran Inj) 4 mg Q6H PRN IV NAUSEA AND/OR VOMITING; Start 03/19 at 02:30 Acetaminophen (Tylenol Tab) 650 mg Q6H PRN PO PAIN LEVEL 1-3 OR FEVER; Start at 02:30 Morphine Sulfate (morphine) 1 mg Q4H PRN IV SEVERE PAIN LEVEL 7-10 Last administered on 03/23/17 05:57; Admin Dose 1 MG; Start 03/19/17 at 02:30 Docusate Sodium (Colace) 100 mg Q12H PRN PO CONSTIPATION; Start 03/19/17 at 02: 30 Bisacodyl (Dulcolax) 5 mg DAILY PRN PO CONSTIPATION; Start 03/19/17 at 02:30 Metoprolol Succinate (Toprol Xl) 25 mg DAILY PO Last administered on 03/23/17 08:02; Admin Dose 25 MG; Start 03/19/17 at 09:00 Sertraline HCl (Zoloft) 50 mg DAILY PO Last administered on 03/23/17 08:02; Admin Dose 50 MG; Start 03/19/17 at 09:00 Tramadol HCl (Ultram) 50 mg Q12 PRN PO PAIN Last administered on 03/22/17 21:26 ; Admin Dose 50 MG; Start 03/19/17 at 05:30 Diagnostic Test (Pha) (Accu-Chek) 1 ea 02 XX ; Start 03/20/17 at 02:00 Miscellaneous Information 1 ea NOTE XX ; Start 03/19/17 at 15:30 Glucose (Glutose) 15 gm Q15M PRN PO DECREASED GLUCOSE; Start 03/19/17 at 15:30 Glucose (Glutose) 22.5 gm Q15M PRN PO DECREASED GLUCOSE; Start 03/19/17 at 15:30 Dextrose (D50w Syringe) 25 ml Q15M PRN IV DECREASED GLUCOSE; Start 03/19/17 at 15:30 Dextrose (D50w Syringe) 50 ml Q15M PRN IV DECREASED GLUCOSE; Start 03/19/17 at 15:30 Glucagon (Glucagen) 1 mg Q15M PRN IM DECREASED GLUCOSE; Start 03/19/17 at 15:30 Glucose (Glutose) 15 gm Q15M PRN BUCCAL DECREASED GLUCOSE; Start 03/19/17 at 15: 30 Nicotine (Nicoderm 21 Mg/ 24hr) 1 patch DAILY TRANSDERM Last administered on 08:03; Admin Dose 1 PATCH; Start 03/20/17 at 09:12 Pantoprazole 40 mg 40 mg BID@06,18 PO Last administered on 03/23/17 05:55; Admin Dose 40 MG; Start 03/20/17 at 18:00 Lactated Ringer's (Lr) 1,000 ml @ 100 mls/hr Q10H IV Last administered on 21:39; Admin Dose 100 MLS/HR; Start 03/20/17 at 10:00 Zolpidem Tartrate (Ambien) 5 mg HS PRN PO INSOMNIA Last administered on 21:25; Admin Dose 5 MG; Start 03/22/17 at 00:00 Insulin Glargine (Lantus) 12 unit DAILY@20 SC ; Start 03/22/17 at 20:00 SHEREEN BAER NP Mar 23, 2017 13:48
[2017-03-23] MEDS: traMADol 50 MG TAB PO PRN (18:45)
[2017-03-23 20:12] VITALS: BP 144/85; RESP 20
[2017-03-23] MEDS: INSULIN GLARGINE [LANtus] 3 ML PEN SC SCH (20:17)
[2017-03-23] MEDS: ONDANSETRON 4 MG INJ IV PRN (22:13)
[2017-03-23] MEDS: ZOLPIDEM 5 MG TAB PO PRN (22:43)
[2017-03-24] MEDS: LACTATED RINGER'S 1,000 ML IV SCH (00:56)
[2017-03-24] MEDS: ACCU-CHEK XX SCH (02:00)
[2017-03-24] MEDS: PANTOPRAZOLE (EC) 40 MG TAB PO SCH ×2 (05:24→17:23)
[2017-03-24] MEDS: morphine 2 MG INJ IV PRN (05:28)
[2017-03-24 05:36] LABS: ADD SCAN DIFF NO
[2017-03-24 05:51] LABS: BASOPHIL # 0.1 10^3/ul (0.0-0.1); BASOPHILS % 1.2 % (0.0-2.0); EOSINOPHILS # 0.2 10^3/ul (0.0-0.5); EOSINOPHILS % 2.2 % (0.0-7.0); HEMATOCRIT 40.2 % (37.0-47.0); HEMOGLOBIN 13.8 g/dl (12.0-16.0); LYMPHOCYTES # 1.7 10^3/ul (0.8-2.9); LYMPHOCYTES % 22.5 % (15.0-51.0); MEAN CORPUSCULAR HEMOGLOBIN 28.9 pg (29.0-33.0); MEAN CORPUSCULAR HGB CONC 34.3 g/dl (32.0-37.0); MEAN CORPUSCULAR VOLUME 84.3 fl (82.0-101.0); MEAN PLATELET VOLUME 12.3 fl (7.4-10.4); MONOCYTE # 0.7 10^3/ul (0.3-0.9); MONOCYTES % 9.4 % (0.0-11.0); NEUTROPHIL # 4.9 10^3/ul (1.6-7.5); PLATELET COUNT 324 10^3/UL (140-415); RED BLOOD COUNT 4.77 10^6/ul (4.20-5.40); WHITE BLOOD COUNT 7.6 10^3/ul (4.8-10.8)
[2017-03-24] MEDS: ALBUTEROL/IPRATROPIUM (NEB) 3 ML AMP HHN SCH ×3 (07:44→19:54)
[2017-03-24 08:03] VITALS: BP 137/77; RESP 19
[2017-03-24] MEDS: SERTRALINE 50 MG TAB PO SCH (08:12)
[2017-03-24] MEDS: INSULIN ASPART [NOVOLOG] 3 ML PEN SC SCH ×7 (08:12→21:00)
[2017-03-24] MEDS: NICOTINE (21 MG/24 HR) PATCH TRANSDERM SCH (08:14)
[2017-03-24] MEDS: METOPROLOL (XL) 25 MG TAB PO SCH (08:15)
--- NOTE | 2017-03-24 10:32 | PN ---
Date/Time of Note Date/Time of Note DATE: 03/24/17 TIME: 10:25 Assessment/Plan VTE Prophylaxis VTE Prophylaxis Intervention: SCD's Lines/Catheters IV Catheter Type (from [facility]rs): Peripheral IV Urinary Cath still in place: Yes Reason Cath still needed: urinary retention Assessment/Plan Chief Complaint/Hosp Course A/P: 56 F with: 1. Transaminitis with hyperbilirubinemia. Etiology unclear. LFT's still quite elevated, including bili's (total and direct). Hepatitis C antibody positive. Awaiting results for evaluation of autoimmune hepatitis. MRCP performed - showed small free fluid and inflammation surrounding the contracted gallbladder within the gallbladder fossa and subhepatic space. No radiologic evidence of biliary dilatation, choledocholithiasis, or biliary obstruction. Hep C VL is very elevated as well. Anti Sm ab and TIM tests were negative. - Avoid hepatotoxic medications. Low-cholesterol diet. - f/u with GI rec's regarding elevated LFT's, and MRCP results - may need to consider starting meds for Hep C tx - will need GI input on this. 2. COPD. No evidence of exacerbation. Continue inhaled bronchodilators around -the-clock and on an as needed basis. 3. Depression. Continue antidepressants. 4. Type 2 diabetes mellitus - FS improved- Latest hemoglobin A1c = 10.3 -Continue sliding scale insulin along with the pre-meal insulin and Lantus insulin. 5. Dyslipidemia. Elevated triglycerides and suboptimal HDL. Low-cholesterol diet. Unable to use any statins because of underlying transaminitis and hyperbilirubinemia. 6. Nicotine use. On a nicotine patch. Cessation advised. 7. Obesity. BMI of 34.2 kg/m. Weight reduction advised. 8. Fluids, electrolytes, and nutrition. Clear liquid diet. 9. DVT prophylaxis. Bilateral sequential compression devices. 10. Gastrointestinal prophylaxis. Proton pump inhibitors. Problems: Subjective 24 Hr Interval Summary Free Text/Dictation No acute events overnight. Pt's Hep C VL levels are severely elevated. Exam/Review of Systems Vital Signs Vitals Vital Signs Date Time Temp Pulse Resp B/P Pulse Ox O2 Delivery O2 Flow Rate FiO2 03/24/17 08:03 98.6 84 19 137/77 91 03/24/17 07:44 21 03/20/17 09:28 Room Air Intake and Output 03/23/17 03/23/17 03/24/17 15:00 23:00 07:00 Intake Total 600 ml 1650 ml 1840 ml Output Total 2900 ml 2550 ml Balance 600 ml -1250 ml -710 ml Exam General: obese, lying in bed in no apparent distress. HEENT: Normocephalic, atraumatic. Eyes: Anicteric sclerae, conjunctivae clear. ENT: Nasal septum midline, oral mucosa moist. Neck supple, no JVD noticed. Respiratory: Bilaterally clear breath sounds. No use of accessory muscles of respiration. less bilateral rhonchi. Cardiovascular: S1, S2 heard. No murmurs or gallops. Abdomen: Soft, nontender, and nondistended. Bowel sounds positive in all 4 quadrants. Extremities: No cyanosis, no clubbing, no edema. Neurologic: Cranial nerves II through XII grossly intact. The patient is awake, alert, and oriented. Skin: Normal skin turgor. No skin rashes. Results Result Diagram: 03/24/17 0514 03/21/17 0645 Results 24 hrs Laboratory Tests Test 03/23/17 12:04 03/23/17 17:30 03/23/17 20:10 03/24/17 05:14 Bedside Glucose 89 90 115 White Blood Count 7.6 Red Blood Count 4.77 Hemoglobin 13.8 Hematocrit 40.2 Mean Corpuscular Volume 84.3 Mean Corpuscular Hemoglobin 28.9 L Mean Corpuscular Hemoglobin Concent 34.3 Red Cell Distribution Width 17.0 H Platelet Count 324 Mean Platelet Volume 12.3 H Neutrophils % 64.0 Lymphocytes % 22.5 Monocytes % 9.4 Eosinophils % 2.2 Basophils % 1.2 Nucleated Red Blood Cells % 0.0 Neutrophils # 4.9 Lymphocytes # 1.7 Monocytes # 0.7 Eosinophils # 0.2 Basophils # 0.1 Nucleated Red Blood Cells # 0.0 Test 03/24/17 07:48 03/24/17 08:11 Lab Scanned Report REFERENCE LAB Bedside Glucose 77 Medications Medications Current Medications Ondansetron HCl (Zofran Inj) 4 mg Q6H PRN IV NAUSEA AND/OR VOMITING Last administered on 03/23/17 22:13; Admin Dose 4 MG; Start 03/19/17 at 02:30 Acetaminophen (Tylenol Tab) 650 mg Q6H PRN PO PAIN LEVEL 1-3 OR FEVER; Start at 02:30 Morphine Sulfate (morphine) 1 mg Q4H PRN IV SEVERE PAIN LEVEL 7-10 Last administered on 03/24/17 05:28; Admin Dose 1 MG; Start 03/19/17 at 02:30 Docusate Sodium (Colace) 100 mg Q12H PRN PO CONSTIPATION; Start 03/19/17 at 02: 30 Bisacodyl (Dulcolax) 5 mg DAILY PRN PO CONSTIPATION; Start 03/19/17 at 02:30 Metoprolol Succinate (Toprol Xl) 25 mg DAILY PO Last administered on 03/24/17 08:15; Admin Dose 25 MG; Start 03/19/17 at 09:00 Sertraline HCl (Zoloft) 50 mg DAILY PO Last administered on 03/24/17 08:12; Admin Dose 50 MG; Start 03/19/17 at 09:00 Tramadol HCl (Ultram) 50 mg Q12 PRN PO PAIN Last administered on 03/23/17 18:45 ; Admin Dose 50 MG; Start 03/19/17 at 05:30 Diagnostic Test (Pha) (Accu-Chek) 1 ea 02 XX ; Start 03/20/17 at 02:00 Miscellaneous Information 1 ea NOTE XX ; Start 03/19/17 at 15:30 Glucose (Glutose) 15 gm Q15M PRN PO DECREASED GLUCOSE; Start 03/19/17 at 15:30 Glucose (Glutose) 22.5 gm Q15M PRN PO DECREASED GLUCOSE; Start 03/19/17 at 15:30 Dextrose (D50w Syringe) 25 ml Q15M PRN IV DECREASED GLUCOSE; Start 03/19/17 at 15:30 Dextrose (D50w Syringe) 50 ml Q15M PRN IV DECREASED GLUCOSE; Start 03/19/17 at 15:30 Glucagon (Glucagen) 1 mg Q15M PRN IM DECREASED GLUCOSE; Start 03/19/17 at 15:30 Glucose (Glutose) 15 gm Q15M PRN BUCCAL DECREASED GLUCOSE; Start 03/19/17 at 15: 30 Nicotine (Nicoderm 21 Mg/ 24hr) 1 patch DAILY TRANSDERM Last administered on 08:14; Admin Dose 1 PATCH; Start 03/20/17 at 09:12 Pantoprazole 40 mg 40 mg BID@06,18 PO Last administered on 03/24/17 05:24; Admin Dose 40 MG; Start 03/20/17 at 18:00 Lactated Ringer's (Lr) 1,000 ml @ 100 mls/hr Q10H IV Last administered on 00:56; Admin Dose 100 MLS/HR; Start 03/20/17 at 10:00 Zolpidem Tartrate (Ambien) 5 mg HS PRN PO INSOMNIA Last administered on 22:43; Admin Dose 5 MG; Start 03/22/17 at 00:00 Insulin Glargine (Lantus) 12 unit DAILY@20 SC Last administered on 03/23/17 20: 17; Admin Dose 12 UNIT; Start 03/22/17 at 20:00 FAIZAN LORENZO Mar 24, 2017 10:32
[2017-03-24 10:40] LABS: ALBUMIN 2.9 g/dl (3.3-4.9); BILIRUBIN,DIRECT 12.7 mg/dl (0.00-0.20); BILIRUBIN,INDIRECT 2.6 mg/dl (0-1.1); BILIRUBIN,TOTAL 15.3 mg/dl (0.2-1.3); TOTAL PROTEIN 5.4 g/dl (6.1-8.1)
--- NOTE | 2017-03-24 13:13 | PN ---
Date/Time of Note Date/Time of Note DATE: 03/24/17 TIME: 13:10 Assessment/Plan VTE Prophylaxis VTE Prophylaxis Intervention: ambulation Lines/Catheters IV C[facility] Type (from [facility] Peripheral IV Urinary Cath still in place: Yes Reason Cath still needed: urinary retention Assessment/Plan Assessment/Plan Assessment * Jaundice hyperbilirubinemia transaminitis * Hepatitis C antibody positive Plan * await viral load * trend liver function * case was discussed with Dr Russ * Further orders will depend on clinical cour Subjective 24 Hr Interval Summary Free Text/Dictation * Course reviewed * No untoward incidents overnight * still awaiting ceruloplasmin,viral load result Exam/Review of Systems Vital Signs Vitals Vital Signs Date Time Temp Pulse Resp B/P Pulse Ox O2 Delivery O2 Flow Rate FiO2 03/24/17 08:03 98.6 84 19 137/77 91 03/24/17 07:44 21 03/20/17 09:28 Room Air Intake and Output 03/23/17 03/23/17 03/24/17 15:00 23:00 07:00 Intake Total 600 ml 1650 ml 1840 ml Output Total 2900 ml 2550 ml Balance 600 ml -1250 ml -710 ml Exam Constitutional: alert, frail Eyes: icteric Neck: non-tender, supple Respiratory: clear to auscultation, normal air movement Cardiovascular: nl pulses, regular rate and rhythm Gastrointestinal: bowel sounds, distended, soft, No rebound or guarding Extremities: normal pulses Neurological: nl speech, nl strength Skin: nl turgor, No rash or lesions Lymph: nl lymph nodes Results Result Diagram: 03/24/17 0514 03/21/17 0645 Results 24 hrs Laboratory Tests Test 03/23/17 17:30 03/23/17 20:10 03/24/17 05:14 03/24/17 07:48 Bedside Glucose 90 115 White Blood Count 7.6 Red Blood Count 4.77 Hemoglobin 13.8 Hematocrit 40.2 Mean Corpuscular Volume 84.3 Mean Corpuscular Hemoglobin 28.9 L Mean Corpuscular Hemoglobin Concent 34.3 Red Cell Distribution Width 17.0 H Platelet Count 324 Mean Platelet Volume 12.3 H Neutrophils % 64.0 Lymphocytes % 22.5 Monocytes % 9.4 Eosinophils % 2.2 Basophils % 1.2 Nucleated Red Blood Cells % 0.0 Neutrophils # 4.9 Lymphocytes # 1.7 Monocytes # 0.7 Eosinophils # 0.2 Basophils # 0.1 Nucleated Red Blood Cells # 0.0 Total Bilirubin 15.3 H Direct Bilirubin 12.70 H Indirect Bilirubin 2.6 H Aspartate Amino Transf (AST/SGOT) 1421 H Alanine Aminotransferase (ALT/SGPT) 577 H Alkaline Phosphatase 182 H Total Protein 5.4 L Albumin 2.9 L Lab Scanned Report REFERENCE LAB Test 03/24/17 08:11 03/24/17 12:11 Bedside Glucose 77 73 Medications Medications Current Medications Ondansetron HCl (Zofran Inj) 4 mg Q6H PRN IV NAUSEA AND/OR VOMITING Last administered on 03/23/17 22:13; Admin Dose 4 MG; Start 03/19/17 at 02:30 Acetaminophen (Tylenol Tab) 650 mg Q6H PRN PO PAIN LEVEL 1-3 OR FEVER; Start at 02:30 Morphine Sulfate (morphine) 1 mg Q4H PRN IV SEVERE PAIN LEVEL 7-10 Last administered on 03/24/17 05:28; Admin Dose 1 MG; Start 03/19/17 at 02:30 Docusate Sodium (Colace) 100 mg Q12H PRN PO CONSTIPATION; Start 03/19/17 at 02: 30 Bisacodyl (Dulcolax) 5 mg DAILY PRN PO CONSTIPATION; Start 03/19/17 at 02:30 Metoprolol Succinate (Toprol Xl) 25 mg DAILY PO Last administered on 03/24/17 08:15; Admin Dose 25 MG; Start 03/19/17 at 09:00 Sertraline HCl (Zoloft) 50 mg DAILY PO Last administered on 03/24/17 08:12; Admin Dose 50 MG; Start 03/19/17 at 09:00 Tramadol HCl (Ultram) 50 mg Q12 PRN PO PAIN Last administered on 03/23/17 18:45 ; Admin Dose 50 MG; Start 03/19/17 at 05:30 Diagnostic Test (Pha) (Accu-Chek) 1 ea 02 XX ; Start 03/20/17 at 02:00 Miscellaneous Information 1 ea NOTE XX ; Start 03/19/17 at 15:30 Glucose (Glutose) 15 gm Q15M PRN PO DECREASED GLUCOSE; Start 03/19/17 at 15:30 Glucose (Glutose) 22.5 gm Q15M PRN PO DECREASED GLUCOSE; Start 03/19/17 at 15:30 Dextrose (D50w Syringe) 25 ml Q15M PRN IV DECREASED GLUCOSE; Start 03/19/17 at 15:30 Dextrose (D50w Syringe) 50 ml Q15M PRN IV DECREASED GLUCOSE; Start 03/19/17 at 15:30 Glucagon (Glucagen) 1 mg Q15M PRN IM DECREASED GLUCOSE; Start 03/19/17 at 15:30 Glucose (Glutose) 15 gm Q15M PRN BUCCAL DECREASED GLUCOSE; Start 03/19/17 at 15: 30 Nicotine (Nicoderm 21 Mg/ 24hr) 1 patch DAILY TRANSDERM Last administered on 08:14; Admin Dose 1 PATCH; Start 03/20/17 at 09:12 Pantoprazole (Protonix Tab) 40 mg BID@06,18 PO Last administered on 03/24/17 05 :24; Admin Dose 40 MG; Start 03/20/17 at 18:00 Zolpidem Tartrate (Ambien) 5 mg HS PRN PO INSOMNIA Last administered on 22:43; Admin Dose 5 MG; Start 03/22/17 at 00:00 Insulin Glargine (Lantus) 12 unit DAILY@20 SC Last administered on 03/23/17 20: 17; Admin Dose 12 UNIT; Start 03/22/17 at 20:00 SHEREEN BAER NP Mar 24, 2017 13:13
[2017-03-24] MEDS: INSULIN GLARGINE [LANtus] 3 ML PEN SC SCH (20:00)
[2017-03-24 20:03] VITALS: BP 147/85; RESP 20
[2017-03-24] MEDS: ONDANSETRON 4 MG INJ IV PRN (20:12)
[2017-03-24] MEDS: traMADol 50 MG TAB PO PRN (22:43)
[2017-03-24] MEDS: ZOLPIDEM 5 MG TAB PO PRN (22:43)
[2017-03-25] MEDS: ACCU-CHEK XX SCH (01:50)
[2017-03-25 02:56] VITALS: BP 141/75; RESP 20
[2017-03-25] MEDS: PANTOPRAZOLE (EC) 40 MG TAB PO SCH ×2 (05:17→17:29)
[2017-03-25] MEDS: morphine 2 MG INJ IV PRN ×4 (05:21→17:49)
[2017-03-25 05:39] LABS: ADD SCAN DIFF NO
[2017-03-25 05:47] LABS: BASOPHIL # 0.1 10^3/ul (0.0-0.1); BASOPHILS % 0.9 % (0.0-2.0); EOSINOPHILS # 0.1 10^3/ul (0.0-0.5); EOSINOPHILS % 1.3 % (0.0-7.0); HEMATOCRIT 39.5 % (37.0-47.0); HEMOGLOBIN 13.9 g/dl (12.0-16.0); LYMPHOCYTES # 1.7 10^3/ul (0.8-2.9); LYMPHOCYTES % 19.2 % (15.0-51.0); MEAN CORPUSCULAR HEMOGLOBIN 29.4 pg (29.0-33.0); MEAN CORPUSCULAR HGB CONC 35.2 g/dl (32.0-37.0); MEAN CORPUSCULAR VOLUME 83.7 fl (82.0-101.0); MEAN PLATELET VOLUME 12.6 fl (7.4-10.4); MONOCYTE # 0.8 10^3/ul (0.3-0.9); MONOCYTES % 9.4 % (0.0-11.0); NEUTROPHILS % 68.4 % (39.0-77.0); PLATELET COUNT 297 10^3/UL (140-415); RED BLOOD COUNT 4.72 10^6/ul (4.20-5.40); RED CELL DISTRIBUTION WIDTH 17.3 % (11.5-14.5); WHITE BLOOD COUNT 8.8 10^3/ul (4.8-10.8)
[2017-03-25 06:58] LABS: ALBUMIN 2.9 g/dl (3.3-4.9); BILIRUBIN,INDIRECT 2.1 mg/dl (0-1.1); BILIRUBIN,TOTAL 15.1 mg/dl (0.2-1.3); TOTAL PROTEIN 5.6 g/dl (6.1-8.1)
[2017-03-25] MEDS: INSULIN ASPART [NOVOLOG] 3 ML PEN SC SCH ×7 (08:15→20:44)
[2017-03-25 08:16] VITALS: BP 122/74; RESP 68
[2017-03-25] MEDS: ALBUTEROL/IPRATROPIUM (NEB) 3 ML AMP HHN SCH ×2 (08:26→19:48)
[2017-03-25] MEDS: NICOTINE (21 MG/24 HR) PATCH TRANSDERM SCH (08:36)
[2017-03-25] MEDS: SERTRALINE 50 MG TAB PO SCH (08:37)
[2017-03-25] MEDS: METOPROLOL (XL) 25 MG TAB PO SCH (08:37)
[2017-03-25] MEDS: INSULIN GLARGINE [LANtus] 3 ML PEN SC SCH (08:49)
--- NOTE | 2017-03-25 10:24 | PN ---
Date/Time of Note Date/Time of Note DATE: 03/25/17 TIME: : Assessment/Plan VTE Prophylaxis VTE Prophylaxis Intervention: SCD's Lines/Catheters IV C[facility]ter Type (from [facility] Peripheral IV Urinary Cath still in place: Yes Reason Cath still needed: urinary retention Assessment/Plan Chief Complaint/Hosp Course A/P: 56 F with: 1. Transaminitis with hyperbilirubinemia. Etiology unclear. LFT's still quite elevated, including bili's (total and direct). Hepatitis C antibody positive. Awaiting results for evaluation of autoimmune hepatitis. MRCP performed - showed small free fluid and inflammation surrounding the contracted gallbladder within the gallbladder fossa and subhepatic space. No radiologic evidence of biliary dilatation, choledocholithiasis, or biliary obstruction. Hep C VL is very elevated as well. Anti Sm ab and TIM tests were negative. - Avoid hepatotoxic medications. Low-cholesterol diet. - f/u with GI rec's regarding elevated LFT's, and MRCP results - may need to consider starting meds for Hep C tx - will need GI input on this as well. 2. COPD. No evidence of exacerbation. Continue inhaled bronchodilators around -the-clock and on an as needed basis. 3. Depression. Continue antidepressants. 4. Type 2 diabetes mellitus - FS improved- Latest hemoglobin A1c = 10.3 -Continue sliding scale insulin along with the pre-meal insulin and Lantus insulin. 5. Dyslipidemia. Elevated triglycerides and suboptimal HDL. Low-cholesterol diet. Unable to use any statins because of underlying transaminitis and hyperbilirubinemia. 6. Nicotine use. On a nicotine patch. Cessation advised. 7. Obesity. BMI of 34.2 kg/m. Weight reduction advised. 8. Fluids, electrolytes, and nutrition. Clear liquid diet. 9. DVT prophylaxis. Bilateral sequential compression devices. 10. Gastrointestinal prophylaxis. Proton pump inhibitors. Problems: Subjective 24 Hr Interval Summary Free Text/Dictation No acute events overnight. Hepatitis C viral load is very high. Exam/Review of Systems Vital Signs Vitals Vital Signs Date Time Temp Pulse Resp B/P Pulse Ox O2 Delivery O2 Flow Rate FiO2 03/25/17 08:28 74 10 89 21 03/25/17 08:16 97.9 122/74 Intake and Output 03/24/17 03/24/17 03/25/17 15:00 23:00 07:00 Intake Total 500 ml 720 ml 400 ml Output Total 2300 ml 2000 ml Balance 500 ml -1580 ml -1600 ml Exam General: obese, lying in bed in no apparent distress. HEENT: Normocephalic, atraumatic. Eyes: Anicteric sclerae, conjunctivae clear. ENT: Nasal septum midline, oral mucosa moist. Neck supple, no JVD noticed. Respiratory: Bilaterally clear breath sounds. No use of accessory muscles of respiration. less bilateral rhonchi. Cardiovascular: S1, S2 heard. No murmurs or gallops. Abdomen: Soft, nontender, and nondistended. Bowel sounds positive in all 4 quadrants. Extremities: No cyanosis, no clubbing, no edema. Neurologic: Cranial nerves II through XII grossly intact. The patient is awake, alert, and oriented. Skin: Normal skin turgor. No skin rashes. Results Result Diagram: 03/25/17 0512 03/21/17 0645 Results 24 hrs Laboratory Tests Test 03/24/17 12:11 03/24/17 17:24 03/24/17 21:45 03/25/17 05:12 Bedside Glucose 73 77 93 White Blood Count 8.8 Red Blood Count 4.72 Hemoglobin 13.9 Hematocrit 39.5 Mean Corpuscular Volume 83.7 Mean Corpuscular Hemoglobin 29.4 Mean Corpuscular Hemoglobin Concent 35.2 Red Cell Distribution Width 17.3 H Platelet Count 297 Mean Platelet Volume 12.6 H Neutrophils % 68.4 Lymphocytes % 19.2 Monocytes % 9.4 Eosinophils % 1.3 Basophils % 0.9 Nucleated Red Blood Cells % 0.0 Neutrophils # 6.0 Lymphocytes # 1.7 Monocytes # 0.8 Eosinophils # 0.1 Basophils # 0.1 Nucleated Red Blood Cells # 0.0 Total Bilirubin 15.1 H Direct Bilirubin 13.00 H Indirect Bilirubin 2.1 H Aspartate Amino Transf (AST/SGOT) 1371 H Alanine Aminotransferase (ALT/SGPT) 562 H Alkaline Phosphatase 185 H Total Protein 5.6 L Albumin 2.9 L Test 03/25/17 08:33 Bedside Glucose 102 Medications Medications Current Medications Ondansetron HCl (Zofran Inj) 4 mg Q6H PRN IV NAUSEA AND/OR VOMITING Last administered on 03/24/17t 20:12; Admin Dose 4 MG; Start 03/19/17 at 02:30 Acetaminophen (Tylenol Tab) 650 mg Q6H PRN PO PAIN LEVEL 1-3 OR FEVER; Start at 02:30 Morphine Sulfate (morphine) 1 mg Q4H PRN IV SEVERE PAIN LEVEL 7-10 Last administered on 03/25/17 05:21; Admin Dose 1 MG; Start 03/19/17 at 02:30 Docusate Sodium (Colace) 100 mg Q12H PRN PO CONSTIPATION Last administered on 08:53; Admin Dose 100 MG; Start 03/19/17 at 02:30 Bisacodyl (Dulcolax) 5 mg DAILY PRN PO CONSTIPATION Last administered on 08:53; Admin Dose 5 MG; Start 03/19/17 at 02:30 Metoprolol Succinate (Toprol Xl) 25 mg DAILY PO Last administered on 03/25/17 08:37; Admin Dose 25 MG; Start 03/19/17 at 09:00 Sertraline HCl (Zoloft) 50 mg DAILY PO Last administered on 03/25/17 08:37; Admin Dose 50 MG; Start 03/19/17 at 09:00 Tramadol HCl (Ultram) 50 mg Q12 PRN PO PAIN Last administered on 03/24/17 22:43 ; Admin Dose 50 MG; Start 03/19/17 at 05:30 Diagnostic Test (Pha) (Accu-Chek) 1 ea 02 XX ; Start 03/20/17 at 02:00 Miscellaneous Information 1 ea NOTE XX ; Start 03/19/17 at 15:30 Glucose (Glutose) 15 gm Q15M PRN PO DECREASED GLUCOSE; Start 03/19/17 at 15:30 Glucose (Glutose) 22.5 gm Q15M PRN PO DECREASED GLUCOSE; Start 03/19/17 at 15:30 Dextrose (D50w Syringe) 25 ml Q15M PRN IV DECREASED GLUCOSE; Start 03/19/17 at 15:30 Dextrose (D50w Syringe) 50 ml Q15M PRN IV DECREASED GLUCOSE; Start 03/19/17 at 15:30 Glucagon (Glucagen) 1 mg Q15M PRN IM DECREASED GLUCOSE; Start 03/19/17 at 15:30 Glucose (Glutose) 15 gm Q15M PRN BUCCAL DECREASED GLUCOSE; Start 03/19/17 at 15: 30 Nicotine (Nicoderm 21 Mg/ 24hr) 1 patch DAILY TRANSDERM Last administered on 08:36; Admin Dose 1 PATCH; Start 03/20/17 at 09:12 Pantoprazole (Protonix Tab) 40 mg BID@06,18 PO Last administered on 03/25/17 05 :17; Admin Dose 40 MG; Start 03/20/17 at 18:00 Zolpidem Tartrate (Ambien) 5 mg HS PRN PO INSOMNIA Last administered on 22:43; Admin Dose 5 MG; Start 03/22/17 at 00:00 Insulin Glargine (Lantus) 12 unit DAILY@09 SC Last administered on 03/25/17 08: 49; Admin Dose 12 UNIT; Start 03/25/17 at 09:00 FAIZAN LORENZO Mar 25, 2017 10:23
--- NOTE | 2017-03-25 13:27 | PN ---
Date/Time of Note Date/Time of Note DATE: 03/25/17 TIME: 13:18 Assessment/Plan VTE Prophylaxis VTE Prophylaxis Intervention: SCD's Lines/Catheters IV [facility]ter Type (from [facility]): Saline Lock Urinary Cath still in place: Yes Reason Cath still needed: urinary retention Assessment/Plan Assessment/Plan Impression: #1 Hyperbilirubinemia: Elevated direct bilirubin, transaminitis with an elevated alk phos concerning for possible early obstruction. Ultrasound and CAT scan however did not show any sign of any obstructive pattern. MRCP did not show biliary dilatation or gallstones so no indication for ERCP. #2 transaminitis: AST:ALT ratio of 2:1 highly suggest EtOH use but pt denied. #3: HCV positive: #4 Medical [facility] use Plan Continue present management will await ceruloplasmin and alpha1 antitrypsin result will treat patients hepatitis C as outpatient basis on our clinic case discussed with Dr Russ further orders will depend on clinical course Subjective 24 Hr Interval Summary Free Text/Dictation * Course reviewed with RN * Patient seen and examined * No untoward events overnight * Worsening transaminase level * Inform patient that we plan to start treatment for Hepatitis C as outpatient in our clinic * Still awaiting ceruloplasmin and alpha! antitrypsin results Exam/Review of Systems Vital Signs Vitals Vital Signs Date Time Temp Pulse Resp B/P Pulse Ox O2 Delivery O2 Flow Rate FiO2 03/25/17 08:28 74 10 89 21 03/25/17 08:16 97.9 122/74 Intake and Output 03/24/17 03/24/17 03/25/17 15:00 23:00 07:00 Intake Total 500 ml 720 ml 400 ml Output Total 2300 ml 2000 ml Balance 500 ml -1580 ml -1600 ml Exam Constitutional: alert, frail Eyes: icteric ENMT: mucosa pink and moist Neck: non-tender, supple Respiratory: diminished breath sounds, normal air movement Cardiovascular: nl pulses, regular rate and rhythm Gastrointestinal: non-tender, soft Musculoskeletal: muscle weakness Extremities: normal pulses Neurological: nl speech Skin: nl turgor, other (jaundice) Results Result Diagram: 03/25/17 0512 03/21/17 0645 Results 24 hrs Laboratory Tests Test 03/24/17 17:24 03/24/17 21:45 03/25/17 05:12 03/25/17 08:33 Bedside Glucose 77 93 102 White Blood Count 8.8 Red Blood Count 4.72 Hemoglobin 13.9 Hematocrit 39.5 Mean Corpuscular Volume 83.7 Mean Corpuscular Hemoglobin 29.4 Mean Corpuscular Hemoglobin Concent 35.2 Red Cell Distribution Width 17.3 H Platelet Count 297 Mean Platelet Volume 12.6 H Neutrophils % 68.4 Lymphocytes % 19.2 Monocytes % 9.4 Eosinophils % 1.3 Basophils % 0.9 Nucleated Red Blood Cells % 0.0 Neutrophils # 6.0 Lymphocytes # 1.7 Monocytes # 0.8 Eosinophils # 0.1 Basophils # 0.1 Nucleated Red Blood Cells # 0.0 Total Bilirubin 15.1 H Direct Bilirubin 13.00 H Indirect Bilirubin 2.1 H Aspartate Amino Transf (AST/SGOT) 1371 H Alanine Aminotransferase (ALT/SGPT) 562 H Alkaline Phosphatase 185 H Total Protein 5.6 L Albumin 2.9 L Test 03/25/17 12:17 Bedside Glucose 113 Medications Medications Current Medications Ondansetron HCl (Zofran Inj) 4 mg Q6H PRN IV NAUSEA AND/OR VOMITING Last administered on 03/24/17 20:12; Admin Dose 4 MG; Start 03/19/17 at 02:30 Acetaminophen (Tylenol Tab) 650 mg Q6H PRN PO PAIN LEVEL 1-3 OR FEVER; Start at 02:30 Morphine Sulfate (morphine) 1 mg Q4H PRN IV SEVERE PAIN LEVEL 7-10 Last administered on 03/25/17 12:29; Admin Dose 1 MG; Start 03/19/17 at 02:30 Docusate Sodium (Colace) 100 mg Q12H PRN PO CONSTIPATION Last administered on 08:53; Admin Dose 100 MG; Start 03/19/17 at 02:30 Bisacodyl (Dulcolax) 5 mg DAILY PRN PO CONSTIPATION Last administered on 08:53; Admin Dose 5 MG; Start 03/19/17 at 02:30 Metoprolol Succinate (Toprol Xl) 25 mg DAILY PO Last administered on 03/25/17 08:37; Admin Dose 25 MG; Start 03/19/17 at 09:00 Sertraline HCl (Zoloft) 50 mg DAILY PO Last administered on 03/25/17 08:37; Admin Dose 50 MG; Start 03/19/17 at 09:00 Tramadol HCl (Ultram) 50 mg Q12 PRN PO PAIN Last administered on 03/24/17 22:43 ; Admin Dose 50 MG; Start 03/19/17 at 05:30 Diagnostic Test (Pha) (Accu-Chek) 1 ea 02 XX ; Start 03/20/17 at 02:00 Miscellaneous Information 1 ea NOTE XX ; Start 03/19/17 at 15:30 Glucose (Glutose) 15 gm Q15M PRN PO DECREASED GLUCOSE; Start 03/19/17 at 15:30 Glucose (Glutose) 22.5 gm Q15M PRN PO DECREASED GLUCOSE; Start 03/19/17 at 15:30 Dextrose (D50w Syringe) 25 ml Q15M PRN IV DECREASED GLUCOSE; Start 03/19/17 at 15:30 Dextrose (D50w Syringe) 50 ml Q15M PRN IV DECREASED GLUCOSE; Start 03/19/17 at 15:30 Glucagon (Glucagen) 1 mg Q15M PRN IM DECREASED GLUCOSE; Start 03/19/17 at 15:30 Glucose (Glutose) 15 gm Q15M PRN BUCCAL DECREASED GLUCOSE; Start 03/19/17 at 15: 30 Nicotine (Nicoderm 21 Mg/ 24hr) 1 patch DAILY TRANSDERM Last administered on 08:36; Admin Dose 1 PATCH; Start 03/20/17 at 09:12 Pantoprazole (Protonix Tab) 40 mg BID@06,18 PO Last administered on 03/25/17 05 :17; Admin Dose 40 MG; Start 03/20/17 at 18:00 Zolpidem Tartrate (Ambien) 5 mg HS PRN PO INSOMNIA Last administered on 22:43; Admin Dose 5 MG; Start 03/22/17 at 00:00 Insulin Glargine (Lantus) 12 unit DAILY@09 SC Last administered on 03/25/17 08: 49; Admin Dose 12 UNIT; Start 03/25/17 at 09:00 SHEREEN BAER NP Mar 25, 2017 13:27
[2017-03-25 19:48] VITALS: BP 124/78; RESP 19
[2017-03-25] MEDS: ZOLPIDEM 5 MG TAB PO PRN (22:00)
[2017-03-25] MEDS: traMADol 50 MG TAB PO PRN (22:00)
[2017-03-26] MEDS: ACCU-CHEK XX SCH (01:38)
[2017-03-26 02:00] VITALS: BP 128/76; PULSE 73; RESP 17
[2017-03-26] MEDS: PANTOPRAZOLE (EC) 40 MG TAB PO SCH ×2 (05:46→17:32)
[2017-03-26 06:08] LABS: ADD SCAN DIFF NO
[2017-03-26 06:17] LABS: BASOPHIL # 0.1 10^3/ul (0.0-0.1); BASOPHILS % 1.4 % (0.0-2.0); EOSINOPHILS # 0.2 10^3/ul (0.0-0.5); EOSINOPHILS % 1.9 % (0.0-7.0); HEMATOCRIT 39.3 % (37.0-47.0); HEMOGLOBIN 13.9 g/dl (12.0-16.0); LYMPHOCYTES # 1.6 10^3/ul (0.8-2.9); LYMPHOCYTES % 19.5 % (15.0-51.0); MEAN CORPUSCULAR HEMOGLOBIN 29.4 pg (29.0-33.0); MEAN CORPUSCULAR HGB CONC 35.4 g/dl (32.0-37.0); MEAN CORPUSCULAR VOLUME 83.3 fl (82.0-101.0); MEAN PLATELET VOLUME 12.4 fl (7.4-10.4); MONOCYTES % 12.8 % (0.0-11.0); NEUTROPHIL # 5.1 10^3/ul (1.6-7.5); NEUTROPHILS % 63.5 % (39.0-77.0); PLATELET COUNT 308 10^3/UL (140-415); RED BLOOD COUNT 4.72 10^6/ul (4.20-5.40); RED CELL DISTRIBUTION WIDTH 17.8 % (11.5-14.5)
[2017-03-26] MEDS: INSULIN ASPART [NOVOLOG] 3 ML PEN SC SCH ×7 (07:46→20:10)
[2017-03-26] MEDS: ALBUTEROL/IPRATROPIUM (NEB) 3 ML AMP HHN SCH ×3 (07:49→20:17)
[2017-03-26] MEDS: METOPROLOL (XL) 25 MG TAB PO SCH (08:15)
[2017-03-26] MEDS: NICOTINE (21 MG/24 HR) PATCH TRANSDERM SCH (08:15)
[2017-03-26] MEDS: morphine 2 MG INJ IV PRN ×2 (08:16→17:32)
[2017-03-26 08:20] VITALS: BP 126/60; RESP 18
[2017-03-26] MEDS: INSULIN GLARGINE [LANtus] 3 ML PEN SC SCH (08:23)
[2017-03-26] MEDS: SERTRALINE 50 MG TAB PO SCH (08:25)
[2017-03-26 10:09] LABS: ALBUMIN 3.1 g/dl (3.3-4.9); BILIRUBIN,INDIRECT 2.6 mg/dl (0-1.1); BILIRUBIN,TOTAL 16.6 mg/dl (0.2-1.3); TOTAL PROTEIN 5.9 g/dl (6.1-8.1)
--- NOTE | 2017-03-26 10:43 | PN ---
Date/Time of Note Date/Time of Note DATE: 03/26/17 TIME: 10:38 Assessment/Plan VTE Prophylaxis VTE Prophylaxis Intervention: ambulation Lines/Catheters [facility]from [facility] Saline Lock Urinary Cath still in place: Yes Reason Cath still needed: urinary retention Assessment/Plan Assessment/Plan #1 Hyperbilirubinemia: Elevated direct bilirubin, transaminitis with an elevated alk phos concerning for possible early obstruction. Ultrasound and CAT scan however did not show any sign of any obstructive pattern. MRCP did not show biliary dilatation or gallstones so no indication for ERCP. #2 transaminitis: AST:ALT ratio of 2:1 highly suggest EtOH use but pt denied. #3: HCV infection acute vs chronic hep c #4 Medical [facility] use Plan Continue present management will await ceruloplasmin and alpha1 antitrypsin result case discussed with Dr Russ further orders will depend on clinical course Subjective 24 Hr Interval Summary Free Text/Dictation * Course reviewed with RN * Patient seen and examined * No untoward events overnight Exam/Review of Systems Vital Signs Vitals Vital Signs Date Time Temp Pulse Resp B/P Pulse Ox O2 Delivery O2 Flow Rate FiO2 03/26/17 08:20 98.4 78 18 126/60 90 03/26/17 07:49 21 03/26/17 02:00 Room Air Intake and Output 03/25/17 03/25/17 03/26/17 15:00 23:00 07:00 Intake Total 1360 ml Output Total 2150 ml Balance -790 ml Exam Constitutional: alert, frail Head: normocephalic Eyes: icteric Neck: non-tender, supple Respiratory: clear to auscultation, diminished breath sounds, normal air movement Cardiovascular: nl pulses, regular rate and rhythm Gastrointestinal: bowel sounds, distended, non-tender, soft Musculoskeletal: nl extremities to inspection, nl gait and stance Extremities: normal pulses Neurological: nl speech, nl strength Skin: nl turgor, other (jaundice) Results Result Diagram: 03/26/17 0529 Results 24 hrs Laboratory Tests Test 03/25/17 12:17 03/25/17 17:26 03/25/17 20:42 03/26/17 05:29 Bedside Glucose 113 76 90 White Blood Count 8.0 Red Blood Count 4.72 Hemoglobin 13.9 Hematocrit 39.3 Mean Corpuscular Volume 83.3 Mean Corpuscular Hemoglobin 29.4 Mean Corpuscular Hemoglobin Concent 35.4 Red Cell Distribution Width 17.8 H Platelet Count 308 Mean Platelet Volume 12.4 H Neutrophils % 63.5 Lymphocytes % 19.5 Monocytes % 12.8 H Eosinophils % 1.9 Basophils % 1.4 Nucleated Red Blood Cells % 0.0 Neutrophils # 5.1 Lymphocytes # 1.6 Monocytes # 1.0 H Eosinophils # 0.2 Basophils # 0.1 Nucleated Red Blood Cells # 0.0 Total Bilirubin 16.6 H Direct Bilirubin 14.00 H Indirect Bilirubin 2.6 H Aspartate Amino Transf (AST/SGOT) 1284 H Alanine Aminotransferase (ALT/SGPT) 466 H Alkaline Phosphatase 206 H Total Protein 5.9 L Albumin 3.1 L Test 03/26/17 07:45 Bedside Glucose 97 Medications Medications Current Medications Ondansetron HCl (Zofran Inj) 4 mg Q6H PRN IV NAUSEA AND/OR VOMITING Last administered on 03/24/17 20:12; Admin Dose 4 MG; Start 03/19/17 at 02:30 Acetaminophen (Tylenol Tab) 650 mg Q6H PRN PO PAIN LEVEL 1-3 OR FEVER; Start at 02:30 Morphine Sulfate (morphine) 1 mg Q4H PRN IV SEVERE PAIN LEVEL 7-10 Last administered on 03/26/17 08:16; Admin Dose 1 MG; Start 03/19/17 at 02:30 Docusate Sodium (Colace) 100 mg Q12H PRN PO CONSTIPATION Last administered on 08:53; Admin Dose 100 MG; Start 03/19/17 at 02:30 Bisacodyl (Dulcolax) 5 mg DAILY PRN PO CONSTIPATION Last administered on 08:53; Admin Dose 5 MG; Start 03/19/17 at 02:30 Metoprolol Succinate (Toprol Xl) 25 mg DAILY PO Last administered on 03/26/17 08:15; Admin Dose 25 MG; Start 03/19/17 at 09:00 Sertraline HCl (Zoloft) 50 mg DAILY PO Last administered on 03/26/17 08:25; Admin Dose 50 MG; Start 03/19/17 at 09:00 Tramadol HCl (Ultram) 50 mg Q12 PRN PO PAIN Last administered on 03/25/17 22:00 ; Admin Dose 50 MG; Start 03/19/17 at 05:30 Diagnostic Test (Pha) (Accu-Chek) 1 ea 02 XX ; Start 03/20/17 at 02:00 Miscellaneous Information 1 ea NOTE XX ; Start 03/19/17 at 15:30 Glucose (Glutose) 15 gm Q15M PRN PO DECREASED GLUCOSE; Start 03/19/17 at 15:30 Glucose (Glutose) 22.5 gm Q15M PRN PO DECREASED GLUCOSE; Start 03/19/17 at 15:30 Dextrose (D50w Syringe) 25 ml Q15M PRN IV DECREASED GLUCOSE; Start 03/19/17 at 15:30 Dextrose (D50w Syringe) 50 ml Q15M PRN IV DECREASED GLUCOSE; Start 03/19/17 at 15:30 Glucagon (Glucagen) 1 mg Q15M PRN IM DECREASED GLUCOSE; Start 03/19/17 at 15:30 Glucose (Glutose) 15 gm Q15M PRN BUCCAL DECREASED GLUCOSE; Start 03/19/17 at 15: 30 Nicotine (Nicoderm 21 Mg/ 24hr) 1 patch DAILY TRANSDERM Last administered on 08:15; Admin Dose 1 PATCH; Start 03/20/17 at 09:12 Pantoprazole (Protonix Tab) 40 mg BID@06,18 PO Last administered on 03/26/17 05 :46; Admin Dose 40 MG; Start 03/20/17 at 18:00 Zolpidem Tartrate (Ambien) 5 mg HS PRN PO INSOMNIA Last administered on 22:00; Admin Dose 5 MG; Start 03/22/17 at 00:00 Insulin Glargine (Lantus) 12 unit DAILY@09 SC Last administered on 03/26/17 08: 23; Admin Dose 12 UNIT; Start 03/25/17 at 09:00 SHEREEN BAER NP Mar 26, 2017 10:43
[2017-03-26 12:18] LABS: BILIRUBIN,INDIRECT 2.1 mg/dl (0-1.1); BILIRUBIN,TOTAL 17.1 mg/dl (0.2-1.3)
[2017-03-26 12:26] LABS: INR 1.28; PROTIME 16.1 Sec (12.2-14.2); PT RATIO 1.3
--- NOTE | 2017-03-26 12:31 | PN ---
Date/Time of Note Date/Time of Note DATE: 03/26/17 TIME: 12:29 Assessment/Plan VTE Prophylaxis VTE Prophylaxis Intervention: SCD's Lines/Catheters IV [facility] Type (from [facility] Saline Lock Urinary Cath still in place: Yes Reason Cath still needed: urinary retention Assessment/Plan Chief Complaint/Hosp Course A/P: 56 F with: 1. Transaminitis with hyperbilirubinemia. Etiology unclear. LFT's still quite elevated, including bili's (total and direct). Hepatitis C antibody positive. Awaiting results for evaluation of autoimmune hepatitis. MRCP performed - showed small free fluid and inflammation surrounding the contracted gallbladder within the gallbladder fossa and subhepatic space. No radiologic evidence of biliary dilatation, choledocholithiasis, or biliary obstruction. Hep C VL is very elevated as well. Anti Sm ab and TIM tests were negative. - Avoid hepatotoxic medications. Low-cholesterol diet. - f/u with GI rec's regarding elevated LFT's, and MRCP results - may need to consider starting meds for Hep C tx, although this may also be done as an outpatient per their latest note. -For elevated ammonia levels today, start lactulose 3 times daily per 2. COPD. No evidence of exacerbation. Continue inhaled bronchodilators around -the-clock and on an as needed basis. 3. Depression. Continue antidepressants. 4. Type 2 diabetes mellitus - FS improved- Latest hemoglobin A1c = 10.3 -Continue sliding scale insulin along with the pre-meal insulin and Lantus insulin. 5. Dyslipidemia. Elevated triglycerides and suboptimal HDL. Low-cholesterol diet. Unable to use any statins because of underlying transaminitis and hyperbilirubinemia. 6. Nicotine use. On a nicotine patch. Cessation advised. 7. Obesity. BMI of 34.2 kg/m. Weight reduction advised. 8. Fluids, electrolytes, and nutrition. Clear liquid diet. 9. DVT prophylaxis. Bilateral sequential compression devices. 10. Gastrointestinal prophylaxis. Proton pump inhibitors. Problems: Subjective 24 Hr Interval Summary Free Text/Dictation No acute events overnight, seen by physical therapy team, walking with assistance with cane. Exam/Review of Systems Vital Signs Vitals Vital Signs Date Time Temp Pulse Resp B/P Pulse Ox O2 Delivery O2 Flow Rate FiO2 03/26/17 08:20 98.4 78 18 126/60 90 03/26/17 07:49 21 03/26/17 02:00 Room Air Intake and Output 03/25/17 03/25/17 03/26/17 15:00 23:00 07:00 Intake Total 1360 ml Output Total 2150 ml Balance -790 ml Exam General: obese, lying in bed in no apparent distress. HEENT: Normocephalic, atraumatic. Eyes: Anicteric sclerae, conjunctivae clear. ENT: Nasal septum midline, oral mucosa moist. Neck supple, no JVD noticed. Respiratory: Bilaterally clear breath sounds. No use of accessory muscles of respiration. less bilateral rhonchi. Cardiovascular: S1, S2 heard. No murmurs or gallops. Abdomen: Soft, nontender, and nondistended. Bowel sounds positive in all 4 quadrants. Extremities: No cyanosis, no clubbing, no edema. Neurologic: Cranial nerves II through XII grossly intact. The patient is awake, alert, and oriented. Skin: Normal skin turgor. No skin rashes. Results Result Diagram: 03/26/17 0529 Results 24 hrs Laboratory Tests Test 03/25/17 17:26 03/25/17 20:42 03/26/17 05:29 03/26/17 07:45 Bedside Glucose 76 90 97 White Blood Count 8.0 Red Blood Count 4.72 Hemoglobin 13.9 Hematocrit 39.3 Mean Corpuscular Volume 83.3 Mean Corpuscular Hemoglobin 29.4 Mean Corpuscular Hemoglobin Concent 35.4 Red Cell Distribution Width 17.8 H Platelet Count 308 Mean Platelet Volume 12.4 H Neutrophils % 63.5 Lymphocytes % 19.5 Monocytes % 12.8 H Eosinophils % 1.9 Basophils % 1.4 Nucleated Red Blood Cells % 0.0 Neutrophils # 5.1 Lymphocytes # 1.6 Monocytes # 1.0 H Eosinophils # 0.2 Basophils # 0.1 Nucleated Red Blood Cells # 0.0 Total Bilirubin 16.6 H Direct Bilirubin 14.00 H Indirect Bilirubin 2.6 H Aspartate Amino Transf (AST/SGOT) 1284 H Alanine Aminotransferase (ALT/SGPT) 466 H Alkaline Phosphatase 206 H Total Protein 5.9 L Albumin 3.1 L Test 03/26/17 11:38 03/26/17 12:06 Prothrombin Time 16.1 H Prothrombin Time Ratio 1.3 INR International Normalized Ratio 1.28 Total Bilirubin 17.1 H Direct Bilirubin 15.00 H Indirect Bilirubin 2.1 H Aspartate Amino Transf (AST/SGOT) 1239 H Alanine Aminotransferase (ALT/SGPT) 532 H Ammonia 64 #H Bedside Glucose 112 Medications Medications Current Medications Ondansetron HCl (Zofran Inj) 4 mg Q6H PRN IV NAUSEA AND/OR VOMITING Last administered on 03/24/17 20:12; Admin Dose 4 MG; Start 03/19/17 at 02:30 Acetaminophen (Tylenol Tab) 650 mg Q6H PRN PO PAIN LEVEL 1-3 OR FEVER; Start at 02:30 Morphine Sulfate (morphine) 1 mg Q4H PRN IV SEVERE PAIN LEVEL 7-10 Last administered on 03/26/17 08:16; Admin Dose 1 MG; Start 03/19/17 at 02:30 Docusate Sodium (Colace) 100 mg Q12H PRN PO CONSTIPATION Last administered on 08:53; Admin Dose 100 MG; Start 03/19/17 at 02:30 Bisacodyl (Dulcolax) 5 mg DAILY PRN PO CONSTIPATION Last administered on 08:53; Admin Dose 5 MG; Start 03/19/17 at 02:30 Metoprolol Succinate (Toprol Xl) 25 mg DAILY PO Last administered on 03/26/17 08:15; Admin Dose 25 MG; Start 03/19/17 at 09:00 Sertraline HCl (Zoloft) 50 mg DAILY PO Last administered on 03/26/17 08:25; Admin Dose 50 MG; Start 03/19/17 at 09:00 Tramadol HCl (Ultram) 50 mg Q12 PRN PO PAIN Last administered on 03/25/17 22:00 ; Admin Dose 50 MG; Start 03/19/17 at 05:30 Diagnostic Test (Pha) (Accu-Chek) 1 ea 02 XX ; Start 03/20/17 at 02:00 Miscellaneous Information 1 ea NOTE XX ; Start 03/19/17 at 15:30 Glucose (Glutose) 15 gm Q15M PRN PO DECREASED GLUCOSE; Start 03/19/17 at 15:30 Glucose (Glutose) 22.5 gm Q15M PRN PO DECREASED GLUCOSE; Start 03/19/17 at 15:30 Dextrose (D50w Syringe) 25 ml Q15M PRN IV DECREASED GLUCOSE; Start 03/19/17 at 15:30 Dextrose (D50w Syringe) 50 ml Q15M PRN IV DECREASED GLUCOSE; Start 03/19/17 at 15:30 Glucagon (Glucagen) 1 mg Q15M PRN IM DECREASED GLUCOSE; Start 03/19/17 at 15:30 Glucose (Glutose) 15 gm Q15M PRN BUCCAL DECREASED GLUCOSE; Start 03/19/17 at 15: 30 Nicotine (Nicoderm 21 Mg/ 24hr) 1 patch DAILY TRANSDERM Last administered on 08:15; Admin Dose 1 PATCH; Start 03/20/17 at 09:12 Pantoprazole (Protonix Tab) 40 mg BID@06,18 PO Last administered on 03/26/17 05 :46; Admin Dose 40 MG; Start 03/20/17 at 18:00 Zolpidem Tartrate (Ambien) 5 mg HS PRN PO INSOMNIA Last administered on 22:00; Admin Dose 5 MG; Start 03/22/17 at 00:00 Insulin Glargine (Lantus) 12 unit DAILY@09 SC Last administered on 03/26/17 08: 23; Admin Dose 12 UNIT; Start 03/25/17 at 09:00 FAIZAN LORENZO Mar 26, 2017 12:31
[2017-03-26] MEDS ORDERED: LACTULOSE 30ML CUP PO SCH (14:00)
[2017-03-26] MEDS: LACTULOSE 30ML CUP PO SCH ×2 (14:58→21:20)
[2017-03-26 20:00] VITALS: BP 124/70; PULSE 70; RESP 18
[2017-03-26] MEDS: traMADol 50 MG TAB PO PRN (21:23)
[2017-03-26] MEDS: ZOLPIDEM 5 MG TAB PO PRN (22:16)
[2017-03-27 02:00] VITALS: BP 133/76; PULSE 68; RESP 18
[2017-03-27] MEDS: ACCU-CHEK XX SCH (02:00)
[2017-03-27 06:31] LABS: INR 1.21; PROTIME 15.4 Sec (12.2-14.2); PT RATIO 1.2
[2017-03-27] MEDS: LACTULOSE 30ML CUP PO SCH ×3 (06:33→22:02)
[2017-03-27] MEDS: PANTOPRAZOLE (EC) 40 MG TAB PO SCH ×2 (06:33→18:10)
[2017-03-27 06:41] LABS: BILIRUBIN,DIRECT 14.7 mg/dl (0.00-0.20); BILIRUBIN,INDIRECT 2.1 mg/dl (0-1.1); BILIRUBIN,TOTAL 16.8 mg/dl (0.2-1.3)
[2017-03-27 07:41] VITALS: BP 126/69; RESP 19
[2017-03-27] MEDS: INSULIN ASPART [NOVOLOG] 3 ML PEN SC SCH ×7 (08:04→21:00)
[2017-03-27] MEDS: ALBUTEROL/IPRATROPIUM (NEB) 3 ML AMP HHN SCH ×3 (08:29→20:20)
[2017-03-27] MEDS: METOPROLOL (XL) 25 MG TAB PO SCH (08:39)
[2017-03-27] MEDS: SERTRALINE 50 MG TAB PO SCH (08:39)
[2017-03-27] MEDS: NICOTINE (21 MG/24 HR) PATCH TRANSDERM SCH (08:39)
[2017-03-27] MEDS: traMADol 50 MG TAB PO PRN ×2 (08:40→18:16)
[2017-03-27] MEDS: INSULIN GLARGINE [LANtus] 3 ML PEN SC SCH (08:47)
[2017-03-27 08:48] LABS: BILIRUBIN,INDIRECT 2.6 mg/dl (0-1.1); BILIRUBIN,TOTAL 16.6 mg/dl (0.2-1.3); TOTAL PROTEIN 5.9 g/dl (6.1-8.1)
--- NOTE | 2017-03-27 09:59 | PN ---
Date/Time of Note Date/Time of Note DATE: 03/27/17 TIME: 09:54 Assessment/Plan VTE Prophylaxis VTE Prophylaxis Intervention: SCD's Lines/Catheters IV [facility]from [facility] Saline Lock Urinary Cath still in place: Yes Reason Cath still needed: urinary retention Assessment/Plan Chief Complaint/Hosp Course A/P: 56 F with: 1. Transaminitis with hyperbilirubinemia. Etiology unclear. LFT's still quite elevated, including bili's (total and direct). Hepatitis C antibody positive. Awaiting results for evaluation of autoimmune hepatitis. MRCP performed - showed small free fluid and inflammation surrounding the contracted gallbladder within the gallbladder fossa and subhepatic space. No radiologic evidence of biliary dilatation, choledocholithiasis, or biliary obstruction. Hep C + with very elevated VL as well. Anti Sm ab and TIM tests were negative. - Avoid hepatotoxic medications. Low-cholesterol diet. - f/u with GI rec's regarding elevated LFT's, and MRCP results -may need to consider starting meds for Hep C tx, although this may also be done as an outpatient - will need to clarify with GI team -For continued elevated ammonia levels, increase dose of lactulose today 2. COPD. No evidence of exacerbation. Continue inhaled bronchodilators around -the-clock and on an as needed basis. 3. Depression. Continue antidepressants. 4. Type 2 diabetes mellitus - FS improved- Latest hemoglobin A1c = 10.3 -Continue sliding scale insulin along with the pre-meal insulin and Lantus insulin. 5. Dyslipidemia. Elevated triglycerides and suboptimal HDL. Low-cholesterol diet. Unable to use any statins because of underlying transaminitis and hyperbilirubinemia. 6. Nicotine use. On a nicotine patch. Cessation advised. 7. Obesity. BMI of 34.2 kg/m. Weight reduction advised. 8. Fluids, electrolytes, and nutrition. Clear liquid diet. 9. DVT prophylaxis. Bilateral sequential compression devices. 10. Gastrointestinal prophylaxis. Proton pump inhibitors. Problems: Subjective 24 Hr Interval Summary Free Text/Dictation Pt had large BM this AM (started on lactulose yesterday). Exam/Review of Systems Vital Signs Vitals Vital Signs Date Time Temp Pulse Resp B/P Pulse Ox O2 Delivery O2 Flow Rate FiO2 03/27/17 08:30 72 20 95 21 03/27/17 07:41 98.2 126/69 03/27/17 02:00 Room Air Intake and Output 03/26/17 03/26/17 03/27/17 15:00 23:00 07:00 Intake Total 1000 ml 1240 ml 800 ml Output Total 2000 ml 1350 ml 2000 ml Balance -1000 ml -110 ml -1200 ml Exam General: obese, lying in bed in no apparent distress, slightly lethargic but answering questions HEENT: Normocephalic, atraumatic. Eyes: Anicteric sclerae, conjunctivae clear. ENT: Nasal septum midline, oral mucosa moist. Neck supple, no JVD noticed. Respiratory: Bilaterally clear breath sounds. No use of accessory muscles of respiration. less bilateral rhonchi. Cardiovascular: S1, S2 heard. No murmurs or gallops. Abdomen: Soft, nontender, and nondistended. Bowel sounds positive in all 4 quadrants. Extremities: No cyanosis, no clubbing, no edema. Neurologic: Cranial nerves II through XII grossly intact. The patient is awake, alert, and oriented. Skin: Normal skin turgor. No skin rashes. Results Result Diagram: 03/26/17 0529 Results 24 hrs Laboratory Tests Test 03/26/17 11:38 03/26/17 12:06 03/26/17 17:26 03/26/17 20:10 Prothrombin Time 16.1 H Prothrombin Time Ratio 1.3 INR International Normalized Ratio 1.28 Total Bilirubin 17.1 H Direct Bilirubin 15.00 H Indirect Bilirubin 2.1 H Aspartate Amino Transf (AST/SGOT) 1239 H Alanine Aminotransferase (ALT/SGPT) 532 H Ammonia 64 #H Bedside Glucose 112 88 92 Test 03/27/17 05:50 03/27/17 08:02 03/27/17 08:43 Prothrombin Time 15.4 H Prothrombin Time Ratio 1.2 INR International Normalized Ratio 1.21 Total Bilirubin 16.8 H Direct Bilirubin 14.70 H Indirect Bilirubin 2.1 H Aspartate Amino Transf (AST/SGOT) 1200 H Alanine Aminotransferase (ALT/SGPT) 483 H Alkaline Phosphatase 177 H Ammonia 49 H Total Protein 5.9 L Albumin 3.0 L Bedside Glucose 109 104 Medications Medications Current Medications Ondansetron HCl (Zofran Inj) 4 mg Q6H PRN IV NAUSEA AND/OR VOMITING Last administered on 03/24/17t 20:12; Admin Dose 4 MG; Start 03/19/17 at 02:30 Acetaminophen (Tylenol Tab) 650 mg Q6H PRN PO PAIN LEVEL 1-3 OR FEVER; Start at 02:30 Morphine Sulfate (morphine) 1 mg Q4H PRN IV SEVERE PAIN LEVEL 7-10 Last administered on 03/26/17 17:32; Admin Dose 1 MG; Start 03/19/17 at 02:30 Docusate Sodium (Colace) 100 mg Q12H PRN PO CONSTIPATION Last administered on 08:53; Admin Dose 100 MG; Start 03/19/17 at 02:30 Bisacodyl (Dulcolax) 5 mg DAILY PRN PO CONSTIPATION Last administered on 08:53; Admin Dose 5 MG; Start 03/19/17 at 02:30 Metoprolol Succinate (Toprol Xl) 25 mg DAILY PO Last administered on 03/27/17 08:39; Admin Dose 25 MG; Start 03/19/17 at 09:00 Sertraline HCl (Zoloft) 50 mg DAILY PO Last administered on 03/27/17 08:39; Admin Dose 50 MG; Start 03/19/17 at 09:00 Tramadol HCl (Ultram) 50 mg Q12 PRN PO PAIN Last administered on 03/27/17 08:40 ; Admin Dose 50 MG; Start 03/19/17 at 05:30 Diagnostic Test (Pha) (Accu-Chek) 1 ea 02 XX ; Start 03/20/17 at 02:00 Miscellaneous Information 1 ea NOTE XX ; Start 03/19/17 at 15:30 Glucose (Glutose) 15 gm Q15M PRN PO DECREASED GLUCOSE; Start 03/19/17 at 15:30 Glucose (Glutose) 22.5 gm Q15M PRN PO DECREASED GLUCOSE; Start 03/19/17 at 15:30 Dextrose (D50w Syringe) 25 ml Q15M PRN IV DECREASED GLUCOSE; Start 03/19/17 at 15:30 Dextrose (D50w Syringe) 50 ml Q15M PRN IV DECREASED GLUCOSE; Start 03/19/17 at 15:30 Glucagon (Glucagen) 1 mg Q15M PRN IM DECREASED GLUCOSE; Start 03/19/17 at 15:30 Glucose (Glutose) 15 gm Q15M PRN BUCCAL DECREASED GLUCOSE; Start 03/19/17 at 15: 30 Nicotine (Nicoderm 21 Mg/ 24hr) 1 patch DAILY TRANSDERM Last administered on 08:39; Admin Dose 1 PATCH; Start 03/20/17 at 09:12 Pantoprazole (Protonix Tab) 40 mg BID@06,18 PO Last administered on 03/27/17 06 :33; Admin Dose 40 MG; Start 03/20/17 at 18:00 Zolpidem Tartrate (Ambien) 5 mg HS PRN PO INSOMNIA Last administered on 22:16; Admin Dose 5 MG; Start 03/22/17 at 00:00 Insulin Glargine (Lantus) 12 unit DAILY@09 SC Last administered on 03/27/17 08: 47; Admin Dose 12 UNIT; Start 03/25/17 at 09:00 Lactulose (Enulose) 30 gm Q8 PO ; Start 03/27/17 at 14:00; Status FAIZAN GARCIA Mar 27, 2017 09:58
--- NOTE | 2017-03-27 12:48 | PN ---
Date/Time of Note Date/Time of Note DATE: 03/27/17 TIME: 12:45 Assessment/Plan VTE Prophylaxis VTE Prophylaxis Intervention: SCD's Lines/Catheters IV Catheter Type (from Nrs): Saline Lock Urinary Cath still in place: Yes Reason Cath still needed: urinary retention Assessment/Plan Assessment/Plan #1 Hyperbilirubinemia: Elevated direct bilirubin, transaminitis with an elevated alk phos concerning for possible early obstruction. Ultrasound and CAT scan however did not show any sign of any obstructive pattern. MRCP did not show biliary dilatation or gallstones so no indication for ERCP. #2 transaminitis: AST:ALT ratio of 2:1 highly suggest EtOH use but pt denied. #3: HCV infection acute vs chronic hep c #4 Medical [facility] use Plan Continue present management will trend liver enzymes case discussed with Dr Russ further orders will depend on clinical course Subjective 24 Hr Interval Summary Free Text/Dictation * Course reviewed with RN * Patient seen and examined * No untoward events overnight Exam/Review of Systems Vital Signs Vitals Vital Signs Date Time Temp Pulse Resp B/P Pulse Ox O2 Delivery O2 Flow Rate FiO2 03/27/17 08:30 72 20 95 21 03/27/17 07:41 98.2 126/69 03/27/17 02:00 Room Air Intake and Output 03/26/17 03/26/17 03/27/17 15:00 23:00 07:00 Intake Total 1000 ml 1240 ml 800 ml Output Total 2000 ml 1350 ml 2000 ml Balance -1000 ml -110 ml -1200 ml Exam Constitutional: alert, oriented Psych: no complaints Eyes: icteric Neck: non-tender, supple Respiratory: clear to auscultation, normal air movement Cardiovascular: nl pulses, regular rate and rhythm Gastrointestinal: nl liver, spleen, non-tender, soft Musculoskeletal: nl extremities to inspection, nl gait and stance Extremities: normal pulses Neurological: nl speech, nl strength Skin: nl turgor, No rash or lesions Results Result Diagram: 03/26/17 0529 Results 24 hrs Laboratory Tests Test 03/26/17 17:26 03/26/17 20:10 03/27/17 05:50 03/27/17 08:02 Bedside Glucose 88 92 109 Prothrombin Time 15.4 H Prothrombin Time Ratio 1.2 INR International Normalized Ratio 1.21 Total Bilirubin 16.8 H Direct Bilirubin 14.70 H Indirect Bilirubin 2.1 H Aspartate Amino Transf (AST/SGOT) 1200 H Alanine Aminotransferase (ALT/SGPT) 483 H Alkaline Phosphatase 177 H Ammonia 49 H Total Protein 5.9 L Albumin 3.0 L Test 03/27/17 08:43 Bedside Glucose 104 Medications Medications Current Medications Ondansetron HCl (Zofran Inj) 4 mg Q6H PRN IV NAUSEA AND/OR VOMITING Last administered on 03/24/17 20:12; Admin Dose 4 MG; Start 03/19/17 at 02:30 Acetaminophen (Tylenol Tab) 650 mg Q6H PRN PO PAIN LEVEL 1-3 OR FEVER; Start at 02:30 Morphine Sulfate (morphine) 1 mg Q4H PRN IV SEVERE PAIN LEVEL 7-10 Last administered on 03/26/17 17:32; Admin Dose 1 MG; Start 03/19/17 at 02:30 Docusate Sodium (Colace) 100 mg Q12H PRN PO CONSTIPATION Last administered on 08:53; Admin Dose 100 MG; Start 03/19/17 at 02:30 Bisacodyl (Dulcolax) 5 mg DAILY PRN PO CONSTIPATION Last administered on 08:53; Admin Dose 5 MG; Start 03/19/17 at 02:30 Metoprolol Succinate (Toprol Xl) 25 mg DAILY PO Last administered on 03/27/17 08:39; Admin Dose 25 MG; Start 03/19/17 at 09:00 Sertraline HCl (Zoloft) 50 mg DAILY PO Last administered on 03/27/17 08:39; Admin Dose 50 MG; Start 03/19/17 at 09:00 Tramadol HCl (Ultram) 50 mg Q12 PRN PO PAIN Last administered on 03/27/17 08:40 ; Admin Dose 50 MG; Start 03/19/17 at 05:30 Diagnostic Test (Pha) (Accu-Chek) 1 ea 02 XX ; Start 03/20/17 at 02:00 Miscellaneous Information 1 ea NOTE XX ; Start 03/19/17 at 15:30 Glucose (Glutose) 15 gm Q15M PRN PO DECREASED GLUCOSE; Start 03/19/17 at 15:30 Glucose (Glutose) 22.5 gm Q15M PRN PO DECREASED GLUCOSE; Start 03/19/17 at 15:30 Dextrose (D50w Syringe) 25 ml Q15M PRN IV DECREASED GLUCOSE; Start 03/19/17 at 15:30 Dextrose (D50w Syringe) 50 ml Q15M PRN IV DECREASED GLUCOSE; Start 03/19/17 at 15:30 Glucagon (Glucagen) 1 mg Q15M PRN IM DECREASED GLUCOSE; Start 03/19/17 at 15:30 Glucose (Glutose) 15 gm Q15M PRN BUCCAL DECREASED GLUCOSE; Start 03/19/17 at 15: 30 Nicotine (Nicoderm 21 Mg/ 24hr) 1 patch DAILY TRANSDERM Last administered on 08:39; Admin Dose 1 PATCH; Start 03/20/17 at 09:12 Pantoprazole (Protonix Tab) 40 mg BID@06,18 PO Last administered on 03/27/17 06 :33; Admin Dose 40 MG; Start 03/20/17 at 18:00 Zolpidem Tartrate (Ambien) 5 mg HS PRN PO INSOMNIA Last administered on 22:16; Admin Dose 5 MG; Start 03/22/17 at 00:00 Insulin Glargine (Lantus) 12 unit DAILY@09 SC Last administered on 03/27/17 08: 47; Admin Dose 12 UNIT; Start 03/25/17 at 09:00 Lactulose (Enulose) 30 gm Q8 PO ; Start 03/27/17 at 14:00 SHEREEN BAER NP Mar 27, 2017 12:48
[2017-03-27] MEDS: morphine 2 MG INJ IV PRN ×2 (13:32→22:03)
[2017-03-27] MEDS: ZOLPIDEM 5 MG TAB PO PRN (22:02)
[2017-03-28] MEDS: ACCU-CHEK XX SCH (02:00)
[2017-03-28] MEDS: PANTOPRAZOLE (EC) 40 MG TAB PO SCH ×2 (05:47→17:23)
[2017-03-28] MEDS: traMADol 50 MG TAB PO PRN ×2 (05:47→17:28)
[2017-03-28] MEDS: LACTULOSE 30ML CUP PO SCH ×3 (05:48→22:13)
[2017-03-28 06:05] LABS: ADD SCAN DIFF NO
[2017-03-28 06:46] LABS: BASOPHIL # 0.1 10^3/ul (0.0-0.1); BASOPHILS % 1.1 % (0.0-2.0); EOSINOPHILS # 0.2 10^3/ul (0.0-0.5); HEMATOCRIT 39.6 % (37.0-47.0); HEMOGLOBIN 13.8 g/dl (12.0-16.0); LYMPHOCYTES # 2.1 10^3/ul (0.8-2.9); LYMPHOCYTES % 25.7 % (15.0-51.0); MEAN CORPUSCULAR HEMOGLOBIN 29.4 pg (29.0-33.0); MEAN CORPUSCULAR HGB CONC 34.8 g/dl (32.0-37.0); MEAN CORPUSCULAR VOLUME 84.3 fl (82.0-101.0); MEAN PLATELET VOLUME 12.8 fl (7.4-10.4); MONOCYTE # 0.9 10^3/ul (0.3-0.9); MONOCYTES % 11.4 % (0.0-11.0); NEUTROPHIL # 4.8 10^3/ul (1.6-7.5); NEUTROPHILS % 58.8 % (39.0-77.0); PLATELET COUNT 299 10^3/UL (140-415); RED CELL DISTRIBUTION WIDTH 19.1 % (11.5-14.5); WHITE BLOOD COUNT 8.2 10^3/ul (4.8-10.8)
[2017-03-28 06:56] LABS: CALCIUM 8.4 mg/dl (8.4-10.2); CREATININE 0.7 mg/dl (0.44-1.00); MAGNESIUM 1.9 mg/dl (1.7-2.5); PHOSPHORUS 3.3 mg/dl (2.5-4.9); POTASSIUM 3.8 mmol/L (3.5-5.1)
[2017-03-28 07:20] LABS: ALBUMIN 3.1 g/dl (3.3-4.9); BILIRUBIN,DIRECT 14.5 mg/dl (0.00-0.20); BILIRUBIN,INDIRECT 2.2 mg/dl (0-1.1); BILIRUBIN,TOTAL 16.7 mg/dl (0.2-1.3); TOTAL PROTEIN 6.1 g/dl (6.1-8.1)
[2017-03-28 07:52] VITALS: BP 125/76; RESP 18
[2017-03-28] MEDS: INSULIN ASPART [NOVOLOG] 3 ML PEN SC SCH ×7 (08:15→21:00)
[2017-03-28] MEDS: METOPROLOL (XL) 25 MG TAB PO SCH (08:36)
[2017-03-28] MEDS: SERTRALINE 50 MG TAB PO SCH (08:37)
[2017-03-28] MEDS: NICOTINE (21 MG/24 HR) PATCH TRANSDERM SCH (08:42)
[2017-03-28] MEDS: ALBUTEROL/IPRATROPIUM (NEB) 3 ML AMP HHN SCH ×3 (09:11→19:30)
[2017-03-28] MEDS: INSULIN GLARGINE [LANtus] 3 ML PEN SC SCH (09:11)
--- NOTE | 2017-03-28 15:07 | PN ---
Date/Time of Note Date/Time of Note DATE: 03/28/17 TIME: 14:51 Assessment/Plan VTE Prophylaxis VTE Prophylaxis Intervention: SCD's Lines/Catheters IV Catheter Type (from Nrs): Peripheral IV Urinary Cath still in place: Yes Reason Cath still needed: other (indicate) (pt insistence) Assessment/Plan Assessment/Plan 56 yo F admitted for jaundice, found to have significant transaminitis and hyperbilirubinemia of unclear etiology in setting of hepatitis C. No evidence of hepatic synthetic dysfunction as INR nl. #transaminitis and elevated bilirubin: etio unclear. Imaging without evidence of biliary obstruction/compromise. -GI following Consider hepatic flare in setting of HepC? However usual causes of other viral hepatitides not present, autoimmune workup negative, no reported recent exposure to hepatotoxins -check CMV serologies as CMV can potentially cause hepatic flare, check EBV serologies -check APAP level though would not expect to still be + this far into hospital stay -UDS only + for THC, EtoH neg consider anti LKM, #DM2: cont insulin #HTN: cont home meds cont home psych meds Subjective 24 Hr Interval Summary Free Text/Dictation Pt still jaundiced. Prior to admission denies any new meds or supplements. Hep C never previously treated-->pt did not know she had HepC until this admission. Exam/Review of Systems Vital Signs Vitals Vital Signs Date Time Temp Pulse Resp B/P Pulse Ox O2 Delivery O2 Flow Rate FiO2 03/28/17 09:11 66 20 94 21 03/28/17 07:52 97.7 125/76 03/27/17 02:00 Room Air Intake and Output 03/27/17 03/27/17 03/28/17 15:00 23:00 07:00 Intake Total 960 ml 1050 ml Output Total 1650 ml 2300 ml Balance -690 ml -1250 ml Exam +jaundice and scleral icterus no mrg lungs clear abd soft no asterixis Ammonia 40s, Hep B and A serologies negative Results Result Diagram: 03/28/1715 03/28/17 0515 Results 24 hrs Laboratory Tests Test 03/27/17 18:09 03/27/17 22:05 03/28/17 05:15 03/28/17 05:25 Bedside Glucose 125 138 White Blood Count 8.2 Red Blood Count 4.70 Hemoglobin 13.8 Hematocrit 39.6 Mean Corpuscular Volume 84.3 Mean Corpuscular Hemoglobin 29.4 Mean Corpuscular Hemoglobin Concent 34.8 Red Cell Distribution Width 19.1 H Platelet Count 299 Mean Platelet Volume 12.8 H Neutrophils % 58.8 Lymphocytes % 25.7 Monocytes % 11.4 H Eosinophils % 2.0 Basophils % 1.1 Nucleated Red Blood Cells % 0.0 Neutrophils # 4.8 Lymphocytes # 2.1 Monocytes # 0.9 Eosinophils # 0.2 Basophils # 0.1 Nucleated Red Blood Cells # 0.0 Sodium Level 135 Potassium Level 3.8 Chloride Level 98 Carbon Dioxide Level 31 Anion Gap 10 Blood Urea Nitrogen 7 Creatinine 0.70 Glucose Level 99 Calcium Level 8.4 Phosphorus Level 3.3 Magnesium Level 1.9 Total Bilirubin 16.7 H Direct Bilirubin 14.50 H Indirect Bilirubin 2.2 H Aspartate Amino Transf (AST/SGOT) 1013 H Alanine Aminotransferase (ALT/SGPT) 454 H Alkaline Phosphatase 181 H Total Protein 6.1 Albumin 3.1 L Ammonia 43 H Test 03/28/17 07:55 03/28/17 12:18 Bedside Glucose 103 108 Medications Medications Current Medications Ondansetron HCl (Zofran Inj) 4 mg Q6H PRN IV NAUSEA AND/OR VOMITING Last administered on 03/24/17 20:12; Admin Dose 4 MG; Start 03/19/17 at 02:30 Acetaminophen (Tylenol Tab) 650 mg Q6H PRN PO PAIN LEVEL 1-3 OR FEVER; Start at 02:30 Morphine Sulfate (morphine) 1 mg Q4H PRN IV SEVERE PAIN LEVEL 7-10 Last administered on 03/27/17 22:03; Admin Dose 1 MG; Start 03/19/17 at 02:30 Docusate Sodium (Colace) 100 mg Q12H PRN PO CONSTIPATION Last administered on 08:53; Admin Dose 100 MG; Start 03/19/17 at 02:30 Bisacodyl (Dulcolax) 5 mg DAILY PRN PO CONSTIPATION Last administered on 08:53; Admin Dose 5 MG; Start 03/19/17 at 02:30 Metoprolol Succinate (Toprol Xl) 25 mg DAILY PO Last administered on 03/28/17 08:36; Admin Dose 25 MG; Start 03/19/17 at 09:00 Sertraline HCl (Zoloft) 50 mg DAILY PO Last administered on 03/28/17 08:37; Admin Dose 50 MG; Start 03/19/17 at 09:00 Tramadol HCl (Ultram) 50 mg Q12 PRN PO PAIN Last administered on 03/28/17 05: 47; Admin Dose 50 MG; Start 03/19/17 at 05:30 Diagnostic Test (Pha) (Accu-Chek) 1 ea 02 XX ; Start 03/20/17 at 02:00 Miscellaneous Information 1 ea NOTE XX ; Start 03/19/17 at 15:30 Glucose (Glutose) 15 gm Q15M PRN PO DECREASED GLUCOSE; Start 03/19/17 at 15:30 Glucose (Glutose) 22.5 gm Q15M PRN PO DECREASED GLUCOSE; Start 03/19/17 at 15:30 Dextrose (D50w Syringe) 25 ml Q15M PRN IV DECREASED GLUCOSE; Start 03/19/17 at 15:30 Dextrose (D50w Syringe) 50 ml Q15M PRN IV DECREASED GLUCOSE; Start 03/19/17 at 15:30 Glucagon (Glucagen) 1 mg Q15M PRN IM DECREASED GLUCOSE; Start 03/19/17 at 15:30 Glucose (Glutose) 15 gm Q15M PRN BUCCAL DECREASED GLUCOSE; Start 03/19/17 at 15: 30 Nicotine (Nicoderm 21 Mg/ 24hr) 1 patch DAILY TRANSDERM Last administered on 08:42; Admin Dose 1 PATCH; Start 03/20/17 at 09:12 Pantoprazole (Protonix Tab) 40 mg BID@06,18 PO Last administered on 03/28/17 05:47; Admin Dose 40 MG; Start 03/20/17 at 18:00 Zolpidem Tartrate (Ambien) 5 mg HS PRN PO INSOMNIA Last administered on 22:02; Admin Dose 5 MG; Start 03/22/17 at 00:00 Insulin Glargine (Lantus) 12 unit DAILY@09 SC Last administered on 03/28/17 09 :11; Admin Dose 12 UNIT; Start 03/25/17 at 09:00 Lactulose (Enulose) 30 gm Q8 PO Last administered on 03/28/17 05:48; Admin Dose 30 GM; Start 03/27/17 at 14:00 EMILIO KOVACS MD Mar 28, 2017 15:02
--- NOTE | 2017-03-28 19:22 | PN ---
Date/Time of Note Date/Time of Note DATE: 03/28/17 TIME: 19:12 Assessment/Plan VTE Prophylaxis VTE Prophylaxis Intervention: SCD's Lines/Catheters IV Catheter Type (from [facility]): Peripheral IV Urinary Cath still in place: Yes Reason Cath still needed: other (indicate) (Quantify urine output) Assessment/Plan Assessment/Plan Assessment; * Severe hepatocellular liver disease/likely acute hepatitis C * No evidence of acute liver failure * History of alcohol abuse * COPD * Diabetes mellitus type 2 * Obesity * Medical marijuana use Plan: * Continue present regimen * Monitor liver function tests Subjective 24 Hr Interval Summary Free Text/Dictation Course reviewed with nursing staff Patient offers no specific complaints Remains jaundice Slight improvement liver function tests No evidence of liver failure Exam/Review of Systems Vital Signs Vitals Vital Signs Date Time Temp Pulse Resp B/P Pulse Ox O2 Delivery O2 Flow Rate FiO2 03/28/17 09:11 66 20 94 21 03/28/17 07:52 97.7 125/76 03/27/17 02:00 Room Air Intake and Output 03/27/17 03/27/17 03/28/17 15:00 23:00 07:00 Intake Total 960 ml 1050 ml Output Total 1650 ml 2300 ml Balance -690 ml -1250 ml Exam Constitutional: alert, obese, oriented, well developed Psych: nl mood/affect, no complaints Head: atraumatic, normocephalic Eyes: EOMI, PERRL, icteric, nl conjunctiva, nl lids ENMT: nl external ears & nose, nl lips & teeth, nl nasal mucosa & septum Neck: non-tender, supple Respiratory: clear to auscultation, normal air movement Cardiovascular: nl pulses, regular rate and rhythm Gastrointestinal: bowel sounds, distended, nl liver, spleen, soft, tender ( Mild diffuse tenderness), No ascites, No mass, No rebound or guarding Musculoskeletal: nl extremities to inspection Extremities: normal pulses Skin: nl turgor, No rash or lesions Lymph: nl lymph nodes Results Result Diagram: 03/28/1751403/28/1715 Results 24 hrs Laboratory Tests Test 03/27/17 22:05 03/28/17 05:15 03/28/17 05:25 03/28/17 07:55 Bedside Glucose 138 103 White Blood Count 8.2 Red Blood Count 4.70 Hemoglobin 13.8 Hematocrit 39.6 Mean Corpuscular Volume 84.3 Mean Corpuscular Hemoglobin 29.4 Mean Corpuscular Hemoglobin Concent 34.8 Red Cell Distribution Width 19.1 H Platelet Count 299 Mean Platelet Volume 12.8 H Neutrophils % 58.8 Lymphocytes % 25.7 Monocytes % 11.4 H Eosinophils % 2.0 Basophils % 1.1 Nucleated Red Blood Cells % 0.0 Neutrophils # 4.8 Lymphocytes # 2.1 Monocytes # 0.9 Eosinophils # 0.2 Basophils # 0.1 Nucleated Red Blood Cells # 0.0 Sodium Level 135 Potassium Level 3.8 Chloride Level 98 Carbon Dioxide Level 31 Anion Gap 10 Blood Urea Nitrogen 7 Creatinine 0.70 Glucose Level 99 Calcium Level 8.4 Phosphorus Level 3.3 Magnesium Level 1.9 Total Bilirubin 16.7 H Direct Bilirubin 14.50 H Indirect Bilirubin 2.2 H Aspartate Amino Transf (AST/SGOT) 1013 H Alanine Aminotransferase (ALT/SGPT) 454 H Alkaline Phosphatase 181 H Total Protein 6.1 Albumin 3.1 L Ammonia 43 H Test 03/28/17 12:18 03/28/17 15:35 03/28/17 17:21 Bedside Glucose 108 80 Acetaminophen Level < 10.0 L Medications Medications Current Medications Ondansetron HCl (Zofran Inj) 4 mg Q6H PRN IV NAUSEA AND/OR VOMITING Last administered on 03/24/17 20:12; Admin Dose 4 MG; Start 03/19/17 at 02:30 Morphine Sulfate (morphine) 1 mg Q4H PRN IV SEVERE PAIN LEVEL 7-10 Last administered on 03/27/17 22:03; Admin Dose 1 MG; Start 03/19/17 at 02:30 Docusate Sodium (Colace) 100 mg Q12H PRN PO CONSTIPATION Last administered on 08:53; Admin Dose 100 MG; Start 03/19/17 at 02:30 Bisacodyl (Dulcolax) 5 mg DAILY PRN PO CONSTIPATION Last administered on 08:53; Admin Dose 5 MG; Start 03/19/17 at 02:30 Metoprolol Succinate (Toprol Xl) 25 mg DAILY PO Last administered on 03/28/17 08:36; Admin Dose 25 MG; Start 03/19/17 at 09:00 Sertraline HCl (Zoloft) 50 mg DAILY PO Last administered on 03/28/17 08:37; Admin Dose 50 MG; Start 03/19/17 at 09:00 Tramadol HCl (Ultram) 50 mg Q12 PRN PO PAIN Last administered on 03/28/17 17: 28; Admin Dose 50 MG; Start 03/19/17 at 05:30 Diagnostic Test (Pha) (Accu-Chek) 1 ea 02 XX ; Start 03/20/17 at 02:00 Miscellaneous Information 1 ea NOTE XX ; Start 03/19/17 at 15:30 Glucose (Glutose) 15 gm Q15M PRN PO DECREASED GLUCOSE; Start 03/19/17 at 15:30 Glucose (Glutose) 22.5 gm Q15M PRN PO DECREASED GLUCOSE; Start 03/19/17 at 15:30 Dextrose (D50w Syringe) 25 ml Q15M PRN IV DECREASED GLUCOSE; Start 03/19/17 at 15:30 Dextrose (D50w Syringe) 50 ml Q15M PRN IV DECREASED GLUCOSE; Start 03/19/17 at 15:30 Glucagon (Glucagen) 1 mg Q15M PRN IM DECREASED GLUCOSE; Start 03/19/17 at 15:30 Glucose (Glutose) 15 gm Q15M PRN BUCCAL DECREASED GLUCOSE; Start 03/19/17 at 15: 30 Nicotine (Nicoderm 21 Mg/ 24hr) 1 patch DAILY TRANSDERM Last administered on 08:42; Admin Dose 1 PATCH; Start 03/20/17 at 09:12 Pantoprazole (Protonix Tab) 40 mg BID@06,18 PO Last administered on 03/28/17 17:23; Admin Dose 40 MG; Start 03/20/17 at 18:00 Zolpidem Tartrate (Ambien) 5 mg HS PRN PO INSOMNIA Last administered on 22:02; Admin Dose 5 MG; Start 03/22/17 at 00:00 Insulin Glargine (Lantus) 12 unit DAILY@09 SC Last administered on 03/28/17 09 :11; Admin Dose 12 UNIT; Start 03/25/17 at 09:00 Lactulose (Enulose) 30 gm Q8 PO Last administered on 03/28/17 14:52; Admin Dose 30 GM; Start 03/27/17 at 14:00 TAMMY ORTIZ MD Mar 28, 2017 19:21
[2017-03-28 20:00] VITALS: BP 119/61; PULSE 73; RESP 18
[2017-03-28] MEDS: ZOLPIDEM 5 MG TAB PO PRN (22:22)
[2017-03-28] MEDS: morphine 2 MG INJ IV PRN (22:22)
[2017-03-29 02:00] VITALS: BP 122/74; PULSE 72; RESP 16
[2017-03-29] MEDS: ACCU-CHEK XX SCH (02:00)
[2017-03-29 05:46] LABS: ADD SCAN DIFF NO
[2017-03-29] MEDS: LACTULOSE 30ML CUP PO SCH ×3 (05:50→22:33)
[2017-03-29] MEDS: traMADol 50 MG TAB PO PRN ×2 (05:50→22:33)
[2017-03-29] MEDS: PANTOPRAZOLE (EC) 40 MG TAB PO SCH (05:50)
[2017-03-29 05:51] LABS: BASOPHIL # 0.1 10^3/ul (0.0-0.1); BASOPHILS % 1.4 % (0.0-2.0); EOSINOPHILS # 0.2 10^3/ul (0.0-0.5); EOSINOPHILS % 2.7 % (0.0-7.0); HEMATOCRIT 41.2 % (37.0-47.0); HEMOGLOBIN 14.3 g/dl (12.0-16.0); LYMPHOCYTES # 1.6 10^3/ul (0.8-2.9); LYMPHOCYTES % 21.3 % (15.0-51.0); MEAN CORPUSCULAR HEMOGLOBIN 29.2 pg (29.0-33.0); MEAN CORPUSCULAR HGB CONC 34.7 g/dl (32.0-37.0); MEAN CORPUSCULAR VOLUME 84.3 fl (82.0-101.0); MONOCYTE # 0.9 10^3/ul (0.3-0.9); MONOCYTES % 11.5 % (0.0-11.0); NEUTROPHIL # 4.8 10^3/ul (1.6-7.5); NEUTROPHILS % 62.3 % (39.0-77.0); PLATELET COUNT 293 10^3/UL (140-415); RED BLOOD COUNT 4.89 10^6/ul (4.20-5.40); RED CELL DISTRIBUTION WIDTH 19.6 % (11.5-14.5); WHITE BLOOD COUNT 7.6 10^3/ul (4.8-10.8)
[2017-03-29 06:23] LABS: BILIRUBIN,DIRECT 14.8 mg/dl (0.00-0.20); BILIRUBIN,INDIRECT 2.2 mg/dl (0-1.1); TOTAL PROTEIN 6.3 g/dl (6.1-8.1)
[2017-03-29 06:46] LABS: CALCIUM 8.6 mg/dl (8.4-10.2); CREATININE 0.68 mg/dl (0.44-1.00)
[2017-03-29] MEDS: ALBUTEROL/IPRATROPIUM (NEB) 3 ML AMP HHN SCH ×3 (07:32→19:55)
[2017-03-29 07:40] VITALS: BP 119/70; RESP 18
[2017-03-29] MEDS: INSULIN ASPART [NOVOLOG] 3 ML PEN SC SCH ×7 (08:15→20:52)
[2017-03-29] MEDS: SERTRALINE 50 MG TAB PO SCH (09:14)
[2017-03-29] MEDS: METOPROLOL (XL) 25 MG TAB PO SCH (09:14)
[2017-03-29] MEDS: INSULIN GLARGINE [LANtus] 3 ML PEN SC SCH (09:19)
[2017-03-29] MEDS: morphine 2 MG INJ IV PRN ×2 (09:24→17:21)
[2017-03-29] MEDS: NICOTINE (21 MG/24 HR) PATCH TRANSDERM SCH (09:25)
--- NOTE | 2017-03-29 13:40 | PN ---
Date/Time of Note Date/Time of Note DATE: 03/29/17 TIME: 13:37 Assessment/Plan VTE Prophylaxis VTE Prophylaxis Intervention: SCD's Lines/Catheters IV [facility] (from [facility] Peripheral IV Urinary Cath still in place: Yes Reason Cath still needed: urinary retention Assessment/Plan Assessment/Plan Assessment; * Severe hepatocellular liver disease/likely acute hepatitis C * No evidence of acute liver failure * History of alcohol abuse * COPD * Diabetes mellitus type 2 * Obesity * Medical marijuana use Plan: * Continue present regimen * Monitor liver function tests * case discussed with Dr Russ * Further orders will depend on clinical course Subjective 24 Hr Interval Summary Free Text/Dictation * Course reviewd with RN * Patient seen and examined * Mild improvement of liver enzymes * No untoward events overnight Exam/Review of Systems Vital Signs Vitals Vital Signs Date Time Temp Pulse Resp B/P Pulse Ox O2 Delivery O2 Flow Rate FiO2 03/29/17 07:40 97.8 69 18 119/70 94 03/29/17 07:32 21 03/29/17 02:00 Room Air Intake and Output 03/28/17 03/28/17 03/29/17 15:00 23:00 07:00 Intake Total 1100 ml 480 ml Output Total 950 ml 1200 ml Balance 150 ml -720 ml Exam Constitutional: alert Eyes: icteric Neck: non-tender, supple Respiratory: clear to auscultation, normal air movement Cardiovascular: nl pulses, regular rate and rhythm Gastrointestinal: distended, non-tender, soft Musculoskeletal: nl extremities to inspection, nl gait and stance Extremities: normal pulses Neurological: nl speech, nl strength Skin: nl turgor, No rash or lesions Lymph: nl lymph nodes Results Result Diagram: 03/29/17 0528 03/29/17 0528 Results 24 hrs Laboratory Tests Test 03/28/17 15:35 03/28/17 17:21 03/28/17 20:29 03/29/17 05:28 Acetaminophen Level < 10.0 L Monoscreen Negative Bedside Glucose 80 102 White Blood Count 7.6 Red Blood Count 4.89 Hemoglobin 14.3 Hematocrit 41.2 Mean Corpuscular Volume 84.3 Mean Corpuscular Hemoglobin 29.2 Mean Corpuscular Hemoglobin Concent 34.7 Red Cell Distribution Width 19.6 H Platelet Count 293 Mean Platelet Volume 12.0 H Neutrophils % 62.3 Lymphocytes % 21.3 Monocytes % 11.5 H Eosinophils % 2.7 Basophils % 1.4 Nucleated Red Blood Cells % 0.0 Neutrophils # 4.8 Lymphocytes # 1.6 Monocytes # 0.9 Eosinophils # 0.2 Basophils # 0.1 Nucleated Red Blood Cells # 0.0 Sodium Level 132 L Potassium Level 4.0 Chloride Level 96 L Carbon Dioxide Level 29 Anion Gap 11 Blood Urea Nitrogen 9 Creatinine 0.68 Glucose Level 94 Calcium Level 8.6 Total Bilirubin 17.0 H Direct Bilirubin 14.80 H Indirect Bilirubin 2.2 H Aspartate Amino Transf (AST/SGOT) 945 H Alanine Aminotransferase (ALT/SGPT) 462 H Alkaline Phosphatase 183 H Total Protein 6.3 Albumin 3.0 L Test 03/29/17 08:04 03/29/17 09:02 03/29/17 12:11 03/29/17 12:51 Bedside Glucose 123 102 109 116 Medications Medications Current Medications Ondansetron HCl (Zofran Inj) 4 mg Q6H PRN IV NAUSEA AND/OR VOMITING Last administered on 03/24/17 20:12; Admin Dose 4 MG; Start 03/19/17 at 02:30 Morphine Sulfate (morphine) 1 mg Q4H PRN IV SEVERE PAIN LEVEL 7-10 Last administered on 03/29/17 09:24; Admin Dose 1 MG; Start 03/19/17 at 02:30 Docusate Sodium (Colace) 100 mg Q12H PRN PO CONSTIPATION Last administered on 08:53; Admin Dose 100 MG; Start 03/19/17 at 02:30 Bisacodyl (Dulcolax) 5 mg DAILY PRN PO CONSTIPATION Last administered on 08:53; Admin Dose 5 MG; Start 03/19/17 at 02:30 Metoprolol Succinate (Toprol Xl) 25 mg DAILY PO Last administered on 03/29/17 09:14; Admin Dose 25 MG; Start 03/19/17 at 09:00 Sertraline HCl (Zoloft) 50 mg DAILY PO Last administered on 03/29/17 09:14; Admin Dose 50 MG; Start 03/19/17 at 09:00 Tramadol HCl (Ultram) 50 mg Q12 PRN PO PAIN Last administered on 03/29/17 05: 50; Admin Dose 50 MG; Start 03/19/17 at 05:30 Diagnostic Test (Pha) (Accu-Chek) 1 ea 02 XX ; Start 03/20/17 at 02:00 Miscellaneous Information 1 ea NOTE XX ; Start 03/19/17 at 15:30 Glucose (Glutose) 15 gm Q15M PRN PO DECREASED GLUCOSE; Start 03/19/17 at 15:30 Glucose (Glutose) 22.5 gm Q15M PRN PO DECREASED GLUCOSE; Start 03/19/17 at 15:30 Dextrose (D50w Syringe) 25 ml Q15M PRN IV DECREASED GLUCOSE; Start 03/19/17 at 15:30 Dextrose (D50w Syringe) 50 ml Q15M PRN IV DECREASED GLUCOSE; Start 03/19/17 at 15:30 Glucagon (Glucagen) 1 mg Q15M PRN IM DECREASED GLUCOSE; Start 03/19/17 at 15:30 Glucose (Glutose) 15 gm Q15M PRN BUCCAL DECREASED GLUCOSE; Start 03/19/17 at 15: 30 Nicotine (Nicoderm 21 Mg/ 24hr) 1 patch DAILY TRANSDERM Last administered on 09:25; Admin Dose 1 PATCH; Start 03/20/17 at 09:12 Pantoprazole (Protonix Tab) 40 mg BID@06,18 PO Last administered on 03/29/17 05:50; Admin Dose 40 MG; Start 03/20/17 at 18:00 Zolpidem Tartrate (Ambien) 5 mg HS PRN PO INSOMNIA Last administered on 22:22; Admin Dose 5 MG; Start 03/22/17 at 00:00 Insulin Glargine (Lantus) 12 unit DAILY@09 SC Last administered on 03/29/17 09 :19; Admin Dose 12 UNIT; Start 03/25/17 at 09:00 Lactulose (Enulose) 30 gm Q8 PO Last administered on 03/29/17 05:50; Admin Dose 30 GM; Start 03/27/17 at 14:00 SHEREEN BAER NP Mar 29, 2017 13:40
[2017-03-29 14:47] LABS: CYTOMEGALOVIRUS ANTIBODY (IGG) >10.00 U/mL; CYTOMEGALOVIRUS ANTIBODY (IGM) <30.00 AU/mL
--- NOTE | 2017-03-29 16:18 | PN ---
Date/Time of Note Date/Time of Note DATE: 03/29/17 TIME: 16:16 Assessment/Plan VTE Prophylaxis VTE Prophylaxis Intervention: SCD's Lines/Catheters IV Catheter Type (from Nrs): Peripheral IV Urinary Cath still in place: Yes Reason Cath still needed: other (indicate) Assessment/Plan Assessment/Plan 56 yo F admitted for jaundice, found to have significant transaminitis and hyperbilirubinemia of unclear etiology in setting of hepatitis C. No evidence of hepatic synthetic dysfunction as INR nl. #transaminitis and elevated bilirubin: etio unclear. Imaging without evidence of biliary obstruction/compromise. -GI following Consider hepatic flare in setting of HepC? However usual causes of other viral hepatitides not present, autoimmune workup negative, no reported recent exposure to hepatotoxins --Monospot negative, CMV testing consistent with previous exposure, APAP level negative, [facility] bloodwork negative -check APAP level though would not expect to still be + this far into hospital stay -UDS only + for THC, EtoH neg consider anti LKM ? #DM2: cont insulin #HTN: cont home meds cont home psych meds Subjective 24 Hr Interval Summary Free Text/Dictation Feels ok. Denies much itching. Exam/Review of Systems Vital Signs Vitals Vital Signs Date Time Temp Pulse Resp B/P Pulse Ox O2 Delivery O2 Flow Rate FiO2 03/29/17 07:40 97.8 69 18 119/70 94 03/29/17 07:32 21 03/29/17 02:00 Room Air Intake and Output 03/28/17 03/28/17 03/29/17 15:00 23:00 07:00 Intake Total 1100 ml 480 ml Output Total 950 ml 1200 ml Balance 150 ml -720 ml Exam jaundiced, sitting up in bed no mrg lungs clear abd soft no le edema labs reviewed. CMV labs consistent with previous exposure Results Result Diagram: 03/29/1728 03/29/17527 Results 24 hrs Laboratory Tests Test 03/28/17 17:21 03/28/17 20:29 03/29/17 05:28 03/29/17 08:04 Bedside Glucose 80 102 123 White Blood Count 7.6 Red Blood Count 4.89 Hemoglobin 14.3 Hematocrit 41.2 Mean Corpuscular Volume 84.3 Mean Corpuscular Hemoglobin 29.2 Mean Corpuscular Hemoglobin Concent 34.7 Red Cell Distribution Width 19.6 H Platelet Count 293 Mean Platelet Volume 12.0 H Neutrophils % 62.3 Lymphocytes % 21.3 Monocytes % 11.5 H Eosinophils % 2.7 Basophils % 1.4 Nucleated Red Blood Cells % 0.0 Neutrophils # 4.8 Lymphocytes # 1.6 Monocytes # 0.9 Eosinophils # 0.2 Basophils # 0.1 Nucleated Red Blood Cells # 0.0 Sodium Level 132 L Potassium Level 4.0 Chloride Level 96 L Carbon Dioxide Level 29 Anion Gap 11 Blood Urea Nitrogen 9 Creatinine 0.68 Glucose Level 94 Calcium Level 8.6 Total Bilirubin 17.0 H Direct Bilirubin 14.80 H Indirect Bilirubin 2.2 H Aspartate Amino Transf (AST/SGOT) 945 H Alanine Aminotransferase (ALT/SGPT) 462 H Alkaline Phosphatase 183 H Total Protein 6.3 Albumin 3.0 L Test 03/29/17 09:02 03/29/17 12:11 03/29/17 12:51 Bedside Glucose 102 109 116 Medications Medications Current Medications Ondansetron HCl (Zofran Inj) 4 mg Q6H PRN IV NAUSEA AND/OR VOMITING Last administered on 03/24/17 20:12; Admin Dose 4 MG; Start 03/19/17 at 02:30 Morphine Sulfate (morphine) 1 mg Q4H PRN IV SEVERE PAIN LEVEL 7-10 Last administered on 03/29/17 09:24; Admin Dose 1 MG; Start 03/19/17 at 02:30 Docusate Sodium (Colace) 100 mg Q12H PRN PO CONSTIPATION Last administered on 08:53; Admin Dose 100 MG; Start 03/19/17 at 02:30 Bisacodyl (Dulcolax) 5 mg DAILY PRN PO CONSTIPATION Last administered on 08:53; Admin Dose 5 MG; Start 03/19/17 at 02:30 Metoprolol Succinate (Toprol Xl) 25 mg DAILY PO Last administered on 03/29/17 09:14; Admin Dose 25 MG; Start 03/19/17 at 09:00 Sertraline HCl (Zoloft) 50 mg DAILY PO Last administered on 03/29/17 09:14; Admin Dose 50 MG; Start 03/19/17 at 09:00 Tramadol HCl (Ultram) 50 mg Q12 PRN PO PAIN Last administered on 03/29/17 05: 50; Admin Dose 50 MG; Start 03/19/17 at 05:30 Diagnostic Test (Pha) (Accu-Chek) 1 ea 02 XX ; Start 03/20/17 at 02:00 Miscellaneous Information 1 ea NOTE XX ; Start 03/19/17 at 15:30 Glucose (Glutose) 15 gm Q15M PRN PO DECREASED GLUCOSE; Start 03/19/17 at 15:30 Glucose (Glutose) 22.5 gm Q15M PRN PO DECREASED GLUCOSE; Start 03/19/17 at 15:30 Dextrose (D50w Syringe) 25 ml Q15M PRN IV DECREASED GLUCOSE; Start 03/19/17 at 15:30 Dextrose (D50w Syringe) 50 ml Q15M PRN IV DECREASED GLUCOSE; Start 03/19/17 at 15:30 Glucagon (Glucagen) 1 mg Q15M PRN IM DECREASED GLUCOSE; Start 03/19/17 at 15:30 Glucose (Glutose) 15 gm Q15M PRN BUCCAL DECREASED GLUCOSE; Start 03/19/17 at 15: 30 Nicotine (Nicoderm 21 Mg/ 24hr) 1 patch DAILY TRANSDERM Last administered on 09:25; Admin Dose 1 PATCH; Start 03/20/17 at 09:12 Pantoprazole (Protonix Tab) 40 mg BID@,18 PO Last administered on 03/29/17 05:50; Admin Dose 40 MG; Start 03/20/17 at 18:00 Zolpidem Tartrate (Ambien) 5 mg HS PRN PO INSOMNIA Last administered on 22:22; Admin Dose 5 MG; Start 03/22/17 at 00:00 Insulin Glargine (Lantus) 12 unit DAILY@09 SC Last administered on 03/29/17 09 :19; Admin Dose 12 UNIT; Start 03/25/17 at 09:00 Lactulose (Enulose) 30 gm Q8 PO Last administered on 03/29/17 14:44; Admin Dose 30 GM; Start 03/27/17 at 14:00 EMILIO KOVACS MD Mar 29, 2017 16:18
[2017-03-29] MEDS: DICLOFENAC SODIUM 1% GEL 100 GM TUBE TP SCH ×2 (18:00→20:53)
[2017-03-29 19:44] VITALS: BP 121/75; RESP 20
[2017-03-29] MEDS: IBUPROFEN 800 MG TAB PO SCH (20:51)
[2017-03-29] MEDS: DOCUSATE SODIUM 250 MG CAP PO SCH (20:51)
[2017-03-29] MEDS: ZOLPIDEM 5 MG TAB PO PRN (22:33)
[2017-03-30] MEDS: ACCU-CHEK XX SCH (02:00)
[2017-03-30 05:34] LABS: ADD SCAN DIFF NO
[2017-03-30 05:36] LABS: BASOPHIL # 0.1 10^3/ul (0.0-0.1); BASOPHILS % 1.8 % (0.0-2.0); EOSINOPHILS # 0.2 10^3/ul (0.0-0.5); EOSINOPHILS % 2.6 % (0.0-7.0); HEMATOCRIT 39.3 % (37.0-47.0); HEMOGLOBIN 13.9 g/dl (12.0-16.0); LYMPHOCYTES # 2.2 10^3/ul (0.8-2.9); LYMPHOCYTES % 29.9 % (15.0-51.0); MEAN CORPUSCULAR HEMOGLOBIN 29.8 pg (29.0-33.0); MEAN CORPUSCULAR HGB CONC 35.4 g/dl (32.0-37.0); MEAN CORPUSCULAR VOLUME 84.3 fl (82.0-101.0); MEAN PLATELET VOLUME 11.9 fl (7.4-10.4); MONOCYTE # 0.8 10^3/ul (0.3-0.9); NEUTROPHIL # 3.9 10^3/ul (1.6-7.5); NEUTROPHILS % 53.7 % (39.0-77.0); PLATELET COUNT 262 10^3/UL (140-415); RED BLOOD COUNT 4.66 10^6/ul (4.20-5.40); RED CELL DISTRIBUTION WIDTH 20.1 % (11.5-14.5); WHITE BLOOD COUNT 7.2 10^3/ul (4.8-10.8)
[2017-03-30] MEDS: LACTULOSE 30ML CUP PO SCH ×3 (06:01→22:00)
[2017-03-30 06:08] LABS: ALBUMIN 2.9 g/dl (3.3-4.9); BILIRUBIN,DIRECT 12.5 mg/dl (0.00-0.20); BILIRUBIN,INDIRECT 2.1 mg/dl (0-1.1); BILIRUBIN,TOTAL 14.6 mg/dl (0.2-1.3); TOTAL PROTEIN 6.2 g/dl (6.1-8.1)
[2017-03-30] MEDS: morphine 2 MG INJ IV PRN (06:09)
[2017-03-30 06:46] LABS: CALCIUM 8.9 mg/dl (8.4-10.2); CREATININE 0.75 mg/dl (0.44-1.00); POTASSIUM 3.8 mmol/L (3.5-5.1)
[2017-03-30 07:45] VITALS: BP 138/79; RESP 18
[2017-03-30] MEDS: ALBUTEROL/IPRATROPIUM (NEB) 3 ML AMP HHN SCH ×3 (07:59→19:19)
[2017-03-30] MEDS: INSULIN ASPART [NOVOLOG] 3 ML PEN SC SCH ×7 (08:04→21:00)
[2017-03-30] MEDS: DICLOFENAC SODIUM 1% GEL 100 GM TUBE TP SCH ×2 (09:00→21:00)
[2017-03-30] MEDS: PANTOPRAZOLE (EC) 40 MG TAB PO SCH (09:21)
[2017-03-30] MEDS: METOPROLOL (XL) 25 MG TAB PO SCH (09:23)
[2017-03-30] MEDS: SERTRALINE 50 MG TAB PO SCH (09:24)
[2017-03-30] MEDS: NICOTINE (21 MG/24 HR) PATCH TRANSDERM SCH (09:24)
[2017-03-30] MEDS: IBUPROFEN 800 MG TAB PO SCH ×3 (09:24→21:01)
[2017-03-30] MEDS: DOCUSATE SODIUM 250 MG CAP PO SCH ×2 (09:24→21:01)
[2017-03-30] MEDS: INSULIN GLARGINE [LANtus] 3 ML PEN SC SCH (09:35)
--- NOTE | 2017-03-30 13:10 | PN ---
Date/Time of Note Date/Time of Note DATE: 03/30/17 TIME: 13:08 Assessment/Plan VTE Prophylaxis VTE Prophylaxis Intervention: SCD's Lines/Catheters IV Catheter Type (from Nrsg): Saline Lock Urinary Cath still in place: Yes Reason Cath still needed: other (indicate) (pt insistence) Assessment/Plan Assessment/Plan 56 yo F admitted for jaundice, found to have significant transaminitis and hyperbilirubinemia of unclear etiology in setting of hepatitis C. No evidence of hepatic synthetic dysfunction as INR nl. transaminases and bilis now downtrending #transaminitis and elevated bilirubin: etio unclear. Imaging without evidence of biliary obstruction/compromise. -GI following Consider hepatic flare in setting of HepC? However usual causes of other viral hepatitides not present, autoimmune workup negative, no reported recent exposure to hepatotoxins --Monospot negative, CMV testing consistent with previous exposure, APAP level negative, [facility] bloodwork negative -check APAP level though would not expect to still be + this far into hospital stay -UDS only + for THC, EtoH neg #DM2: cont insulin BG now much better improved #HTN: cont home meds Subjective 24 Hr Interval Summary Free Text/Dictation Feeling a little dysphoric, reports several months of urinary frequency Exam/Review of Systems Vital Signs Vitals Vital Signs Date Time Temp Pulse Resp B/P Pulse Ox O2 Delivery O2 Flow Rate FiO2 03/30/17 08:00 64 18 95 21 03/30/17 07:45 98.0 138/79 03/29/17 02:00 Room Air Intake and Output 03/29/17 03/29/17 03/30/17 15:00 23:00 07:00 Intake Total 1560 ml 300 ml Output Total 1550 ml 1275 ml Balance 10 ml -975 ml Exam jaundiced no mrg lungs clear abd soft trace le edema Results Result Diagram: 03/30/1751603/30/17 0517 Results 24 hrs Laboratory Tests Test 03/29/17 17:27 03/29/17 20:49 03/30/17 05:17 03/30/17 08:00 Bedside Glucose 88 92 77 White Blood Count 7.2 Red Blood Count 4.66 Hemoglobin 13.9 Hematocrit 39.3 Mean Corpuscular Volume 84.3 Mean Corpuscular Hemoglobin 29.8 Mean Corpuscular Hemoglobin Concent 35.4 Red Cell Distribution Width 20.1 H Platelet Count 262 Mean Platelet Volume 11.9 H Neutrophils % 53.7 Lymphocytes % 29.9 Monocytes % 11.0 Eosinophils % 2.6 Basophils % 1.8 Nucleated Red Blood Cells % 0.0 Neutrophils # 3.9 Lymphocytes # 2.2 Monocytes # 0.8 Eosinophils # 0.2 Basophils # 0.1 Nucleated Red Blood Cells # 0.0 Sodium Level 129 L Potassium Level 3.8 Chloride Level 96 L Carbon Dioxide Level 31 Anion Gap 6 L Blood Urea Nitrogen 10 Creatinine 0.75 Glucose Level 80 Calcium Level 8.9 Total Bilirubin 14.6 H Direct Bilirubin 12.50 H Indirect Bilirubin 2.1 H Aspartate Amino Transf (AST/SGOT) 745 H Alanine Aminotransferase (ALT/SGPT) 397 H Alkaline Phosphatase 175 H Total Protein 6.2 Albumin 2.9 L Test 03/30/17 09:03 03/30/17 11:47 Bedside Glucose 82 125 Medications Medications Current Medications Ondansetron HCl (Zofran Inj) 4 mg Q6H PRN IV NAUSEA AND/OR VOMITING Last administered on 03/24/17 20:12; Admin Dose 4 MG; Start 03/19/17 at 02:30 Morphine Sulfate (morphine) 1 mg Q4H PRN IV SEVERE PAIN LEVEL 7-10 Last administered on 03/30/17 06:09; Admin Dose 1 MG; Start 03/19/17 at 02:30 Docusate Sodium (Colace) 100 mg Q12H PRN PO CONSTIPATION Last administered on 08:53; Admin Dose 100 MG; Start 03/19/17 at 02:30 Bisacodyl (Dulcolax) 5 mg DAILY PRN PO CONSTIPATION Last administered on 08:53; Admin Dose 5 MG; Start 03/19/17 at 02:30 Metoprolol Succinate (Toprol Xl) 25 mg DAILY PO Last administered on 03/30/17 09:23; Admin Dose 25 MG; Start 03/19/17 at 09:00 Sertraline HCl (Zoloft) 50 mg DAILY PO Last administered on 03/30/17 09:24; Admin Dose 50 MG; Start 03/19/17 at 09:00 Tramadol HCl (Ultram) 50 mg Q12 PRN PO PAIN Last administered on 03/29/17 22: 33; Admin Dose 50 MG; Start 03/19/17 at 05:30 Diagnostic Test (Pha) (Accu-Chek) 1 ea 02 XX ; Start 03/20/17 at 02:00 Miscellaneous Information 1 ea NOTE XX ; Start 03/19/17 at 15:30 Glucose (Glutose) 15 gm Q15M PRN PO DECREASED GLUCOSE; Start 03/19/17 at 15:30 Glucose (Glutose) 22.5 gm Q15M PRN PO DECREASED GLUCOSE; Start 03/19/17 at 15:30 Dextrose (D50w Syringe) 25 ml Q15M PRN IV DECREASED GLUCOSE; Start 03/19/17 at 15:30 Dextrose (D50w Syringe) 50 ml Q15M PRN IV DECREASED GLUCOSE; Start 03/19/17 at 15:30 Glucagon (Glucagen) 1 mg Q15M PRN IM DECREASED GLUCOSE; Start 03/19/17 at 15:30 Glucose (Glutose) 15 gm Q15M PRN BUCCAL DECREASED GLUCOSE; Start 03/19/17 at 15: 30 Nicotine (Nicoderm 21 Mg/ 24hr) 1 patch DAILY TRANSDERM Last administered on 09:24; Admin Dose 1 PATCH; Start 03/20/17 at 09:12 Zolpidem Tartrate (Ambien) 5 mg HS PRN PO INSOMNIA Last administered on 22:33; Admin Dose 5 MG; Start 03/22/17 at 00:00 Insulin Glargine (Lantus) 12 unit DAILY@09 SC Last administered on 03/30/17 09 :35; Admin Dose 12 UNIT; Start 03/25/17 at 09:00 Lactulose (Enulose) 30 gm Q8 PO Last administered on 03/30/17 06:01; Admin Dose 30 GM; Start 03/27/17 at 14:00 Diclofenac Sodium (Voltaren 1% Gel) 2 gm BID TP ; Start 03/29/17 at 18:00 Docusate Sodium (Colace) 250 mg BID PO Last administered on 03/30/17 09:24; Admin Dose 250 MG; Start 03/29/17 at 21:00 Ibuprofen (Motrin) 800 mg TID PO Last administered on 03/30/17 09:24; Admin Dose 800 MG; Start 03/29/17 at 21:00 EMILIO KOVACS MD Mar 30, 2017 13:10
--- NOTE | 2017-03-30 13:23 | PN ---
Date/Time of Note Date/Time of Note DATE: 03/30/17 TIME: 13:20 Assessment/Plan VTE Prophylaxis VTE Prophylaxis Intervention: ambulation Lines/Catheters [facility] Saline Lock Urinary Cath still in place: Yes Reason Cath still needed: urinary retention Assessment/Plan Assessment/Plan Assessment; * Severe hepatocellular liver disease/likely acute hepatitis C * No evidence of acute liver failure * History of alcohol abuse * COPD * Diabetes mellitus type 2 * Obesity * Medical marijuana use Plan: * Continue present regimen * Monitor liver function tests * case discussed with Dr Russ * Further orders will depend on clinical course Subjective 24 Hr Interval Summary Free Text/Dictation * Course reviewed * Patient seen and examined * No untoward events overnight * Transaminase improving Exam/Review of Systems Vital Signs Vitals Vital Signs Date Time Temp Pulse Resp B/P Pulse Ox O2 Delivery O2 Flow Rate FiO2 03/30/17 08:00 64 18 95 21 03/30/17 07:45 98.0 138/79 03/29/17 02:00 Room Air Intake and Output 03/29/17 03/29/17 03/30/17 15:00 23:00 07:00 Intake Total 1560 ml 300 ml Output Total 1550 ml 1275 ml Balance 10 ml -975 ml Exam Constitutional: alert, oriented Head: normocephalic Neck: supple Respiratory: clear to auscultation, normal air movement Cardiovascular: nl pulses, regular rate and rhythm Gastrointestinal: bowel sounds, distended, soft, No rebound or guarding Musculoskeletal: nl extremities to inspection, nl gait and stance Extremities: normal pulses Neurological: nl speech, nl strength Skin: nl turgor, No rash or lesions Results Result Diagram: 03/30/1751603/30/1717 Results 24 hrs Laboratory Tests Test 03/29/17 17:27 03/29/17 20:49 03/30/17 05:17 03/30/17 08:00 Bedside Glucose 88 92 77 White Blood Count 7.2 Red Blood Count 4.66 Hemoglobin 13.9 Hematocrit 39.3 Mean Corpuscular Volume 84.3 Mean Corpuscular Hemoglobin 29.8 Mean Corpuscular Hemoglobin Concent 35.4 Red Cell Distribution Width 20.1 H Platelet Count 262 Mean Platelet Volume 11.9 H Neutrophils % 53.7 Lymphocytes % 29.9 Monocytes % 11.0 Eosinophils % 2.6 Basophils % 1.8 Nucleated Red Blood Cells % 0.0 Neutrophils # 3.9 Lymphocytes # 2.2 Monocytes # 0.8 Eosinophils # 0.2 Basophils # 0.1 Nucleated Red Blood Cells # 0.0 Sodium Level 129 L Potassium Level 3.8 Chloride Level 96 L Carbon Dioxide Level 31 Anion Gap 6 L Blood Urea Nitrogen 10 Creatinine 0.75 Glucose Level 80 Calcium Level 8.9 Total Bilirubin 14.6 H Direct Bilirubin 12.50 H Indirect Bilirubin 2.1 H Aspartate Amino Transf (AST/SGOT) 745 H Alanine Aminotransferase (ALT/SGPT) 397 H Alkaline Phosphatase 175 H Total Protein 6.2 Albumin 2.9 L Test 03/30/17 09:03 03/30/17 11:47 Bedside Glucose 82 125 Medications Medications Current Medications Ondansetron HCl (Zofran Inj) 4 mg Q6H PRN IV NAUSEA AND/OR VOMITING Last administered on 03/24/17 20:12; Admin Dose 4 MG; Start 03/19/17 at 02:30 Morphine Sulfate (morphine) 1 mg Q4H PRN IV SEVERE PAIN LEVEL 7-10 Last administered on 03/30/17 06:09; Admin Dose 1 MG; Start 03/19/17 at 02:30 Docusate Sodium (Colace) 100 mg Q12H PRN PO CONSTIPATION Last administered on 08:53; Admin Dose 100 MG; Start 03/19/17 at 02:30 Bisacodyl (Dulcolax) 5 mg DAILY PRN PO CONSTIPATION Last administered on 08:53; Admin Dose 5 MG; Start 03/19/17 at 02:30 Metoprolol Succinate (Toprol Xl) 25 mg DAILY PO Last administered on 03/30/17 09:23; Admin Dose 25 MG; Start 03/19/17 at 09:00 Sertraline HCl (Zoloft) 50 mg DAILY PO Last administered on 03/30/17 09:24; Admin Dose 50 MG; Start 03/19/17 at 09:00 Tramadol HCl (Ultram) 50 mg Q12 PRN PO PAIN Last administered on 03/29/17 22: 33; Admin Dose 50 MG; Start 03/19/17 at 05:30 Diagnostic Test (Pha) (Accu-Chek) 1 ea 02 XX ; Start 03/20/17 at 02:00 Miscellaneous Information 1 ea NOTE XX ; Start 03/19/17 at 15:30 Glucose (Glutose) 15 gm Q15M PRN PO DECREASED GLUCOSE; Start 03/19/17 at 15:30 Glucose (Glutose) 22.5 gm Q15M PRN PO DECREASED GLUCOSE; Start 03/19/17 at 15:30 Dextrose (D50w Syringe) 25 ml Q15M PRN IV DECREASED GLUCOSE; Start 03/19/17 at 15:30 Dextrose (D50w Syringe) 50 ml Q15M PRN IV DECREASED GLUCOSE; Start 03/19/17 at 15:30 Glucagon (Glucagen) 1 mg Q15M PRN IM DECREASED GLUCOSE; Start 03/19/17 at 15:30 Glucose (Glutose) 15 gm Q15M PRN BUCCAL DECREASED GLUCOSE; Start 03/19/17 at 15: 30 Nicotine (Nicoderm 21 Mg/ 24hr) 1 patch DAILY TRANSDERM Last administered on 09:24; Admin Dose 1 PATCH; Start 03/20/17 at 09:12 Zolpidem Tartrate (Ambien) 5 mg HS PRN PO INSOMNIA Last administered on 22:33; Admin Dose 5 MG; Start 03/22/17 at 00:00 Insulin Glargine (Lantus) 12 unit DAILY@09 SC Last administered on 03/30/17 09 :35; Admin Dose 12 UNIT; Start 03/25/17 at 09:00 Lactulose (Enulose) 30 gm Q8 PO Last administered on 03/30/17 06:01; Admin Dose 30 GM; Start 03/27/17 at 14:00 Diclofenac Sodium (Voltaren 1% Gel) 2 gm BID TP ; Start 03/29/17 at 18:00 Docusate Sodium (Colace) 250 mg BID PO Last administered on 03/30/17 09:24; Admin Dose 250 MG; Start 03/29/17 at 21:00 Ibuprofen (Motrin) 800 mg TID PO Last administered on 03/30/17 09:24; Admin Dose 800 MG; Start 03/29/17 at 21:00 SHEREEN BAER NP Mar 30, 2017 13:23
[2017-03-30] MEDS: traMADol 50 MG TAB PO PRN (15:01)
[2017-03-30 20:06] VITALS: BP 148/81; RESP 18
[2017-03-30] MEDS: ZOLPIDEM 5 MG TAB PO PRN (23:51)
[2017-03-31] MEDS: ACCU-CHEK XX SCH (02:00)
[2017-03-31 05:39] LABS: ADD SCAN DIFF NO
[2017-03-31 05:49] LABS: BASOPHIL # 0.1 10^3/ul (0.0-0.1); BASOPHILS % 1.8 % (0.0-2.0); EOSINOPHILS # 0.2 10^3/ul (0.0-0.5); EOSINOPHILS % 2.8 % (0.0-7.0); HEMATOCRIT 39.3 % (37.0-47.0); HEMOGLOBIN 13.8 g/dl (12.0-16.0); LYMPHOCYTES # 2.2 10^3/ul (0.8-2.9); LYMPHOCYTES % 30.4 % (15.0-51.0); MEAN CORPUSCULAR HEMOGLOBIN 29.5 pg (29.0-33.0); MEAN CORPUSCULAR HGB CONC 35.1 g/dl (32.0-37.0); MEAN PLATELET VOLUME 11.8 fl (7.4-10.4); MONOCYTE # 0.7 10^3/ul (0.3-0.9); MONOCYTES % 9.9 % (0.0-11.0); NEUTROPHIL # 3.9 10^3/ul (1.6-7.5); NEUTROPHILS % 54.3 % (39.0-77.0); PLATELET COUNT 260 10^3/UL (140-415); RED BLOOD COUNT 4.68 10^6/ul (4.20-5.40); RED CELL DISTRIBUTION WIDTH 20.5 % (11.5-14.5); WHITE BLOOD COUNT 7.3 10^3/ul (4.8-10.8)
[2017-03-31 06:04] LABS: CALCIUM 8.7 mg/dl (8.4-10.2); CREATININE 0.75 mg/dl (0.44-1.00)
[2017-03-31 06:07] LABS: BILIRUBIN,DIRECT 10.7 mg/dl (0.00-0.20); BILIRUBIN,INDIRECT 2.2 mg/dl (0-1.1); BILIRUBIN,TOTAL 12.9 mg/dl (0.2-1.3); TOTAL PROTEIN 6.2 g/dl (6.1-8.1)
[2017-03-31] MEDS: LACTULOSE 30ML CUP PO SCH ×3 (06:29→21:12)
[2017-03-31 07:46] VITALS: BP 146/75; RESP 18
[2017-03-31] MEDS: traMADol 50 MG TAB PO PRN (08:12)
[2017-03-31] MEDS: IBUPROFEN 800 MG TAB PO SCH ×3 (08:15→21:12)
[2017-03-31] MEDS: DOCUSATE SODIUM 250 MG CAP PO SCH ×2 (08:15→21:12)
[2017-03-31] MEDS: PANTOPRAZOLE (EC) 40 MG TAB PO SCH (08:15)
[2017-03-31] MEDS: INSULIN ASPART [NOVOLOG] 3 ML PEN SC SCH ×7 (08:15→21:00)
[2017-03-31] MEDS: SERTRALINE 50 MG TAB PO SCH (08:15)
[2017-03-31] MEDS: NICOTINE (21 MG/24 HR) PATCH TRANSDERM SCH (08:16)
[2017-03-31] MEDS: METOPROLOL (XL) 25 MG TAB PO SCH (08:16)
[2017-03-31] MEDS: DICLOFENAC SODIUM 1% GEL 100 GM TUBE TP SCH ×2 (08:17→21:12)
[2017-03-31] MEDS: INSULIN GLARGINE [LANtus] 3 ML PEN SC SCH (08:30)
[2017-03-31] MEDS: ALBUTEROL/IPRATROPIUM (NEB) 3 ML AMP HHN SCH ×3 (08:30→20:56)
--- NOTE | 2017-03-31 13:52 | PN ---
Date/Time of Note Date/Time of Note DATE: 03/31/17 TIME: 13:50 Assessment/Plan VTE Prophylaxis VTE Prophylaxis Intervention: SCD's Lines/Catheters [facility] Saline Lock Urinary Cath still in place: Yes Reason Cath still needed: other (indicate) Assessment/Plan Assessment/Plan 56 yo F admitted for jaundice, found to have significant transaminitis and hyperbilirubinemia of unclear etiology in setting of hepatitis C. No evidence of hepatic synthetic dysfunction as INR nl. transaminases and bilis now downtrending #transaminitis and elevated bilirubin: etio unclear. Imaging without evidence of biliary obstruction/compromise.-->possibly EtOH v viral. resolving in either case -GI following Consider hepatic flare in setting of HepC? However usual causes of other viral hepatitides not present, autoimmune workup negative, no reported recent exposure to hepatotoxins --Monospot negative, CMV testing consistent with previous exposure, APAP level negative, [facility] bloodwork negative -UDS only + for THC, EtoH neg #DM2: cont insulin BG now much better improved #HTN: cont home meds SS eval for SNF. PT to see today d/cfoley Subjective 24 Hr Interval Summary Free Text/Dictation LFTs improving but now pt and nephew are saying that they are concerned about pt 's home situation (a sober living with possible "black mold") Exam/Review of Systems Vital Signs Vitals Vital Signs Date Time Temp Pulse Resp B/P Pulse Ox O2 Delivery O2 Flow Rate FiO2 03/31/17 08:31 65 18 97 21 03/31/17 07:46 97.6 146/75 03/29/17 02:00 Room Air Intake and Output 03/30/17 03/30/17 03/31/17 15:00 23:00 07:00 Intake Total 2120 ml Output Total 2200 ml Balance -80 ml Exam nad ,sitting up in bed less jaundiced no mrg lungs clear abd soft no rashes Results Result Diagram: 03/31/17 0520 03/31/17 0520 Results 24 hrs Laboratory Tests Test 03/30/17 14:50 03/30/17 15:15 03/30/17 17:55 03/30/17 21:59 Osmolality 279 L Urine Osmolality 256 Urine Random Sodium 37 Bedside Glucose 141 106 Test 03/31/17 05:20 03/31/17 08:21 03/31/17 12:19 White Blood Count 7.3 Red Blood Count 4.68 Hemoglobin 13.8 Hematocrit 39.3 Mean Corpuscular Volume 84.0 Mean Corpuscular Hemoglobin 29.5 Mean Corpuscular Hemoglobin Concent 35.1 Red Cell Distribution Width 20.5 H Platelet Count 260 Mean Platelet Volume 11.8 H Neutrophils % 54.3 Lymphocytes % 30.4 Monocytes % 9.9 Eosinophils % 2.8 Basophils % 1.8 Nucleated Red Blood Cells % 0.0 Neutrophils # 3.9 Lymphocytes # 2.2 Monocytes # 0.7 Eosinophils # 0.2 Basophils # 0.1 Nucleated Red Blood Cells # 0.0 Sodium Level 130 L Potassium Level 4.0 Chloride Level 98 Carbon Dioxide Level 30 Anion Gap 6 L Blood Urea Nitrogen 10 Creatinine 0.75 Glucose Level 96 Calcium Level 8.7 Total Bilirubin 12.9 H Direct Bilirubin 10.70 H Indirect Bilirubin 2.2 H Aspartate Amino Transf (AST/SGOT) 585 H Alanine Aminotransferase (ALT/SGPT) 326 H Alkaline Phosphatase 172 H Total Protein 6.2 Albumin 3.0 L Bedside Glucose 103 157 Medications Medications Current Medications Ondansetron HCl (Zofran Inj) 4 mg Q6H PRN IV NAUSEA AND/OR VOMITING Last administered on 03/24/17 20:12; Admin Dose 4 MG; Start 03/19/17 at 02:30 Morphine Sulfate (morphine) 1 mg Q4H PRN IV SEVERE PAIN LEVEL 7-10 Last administered on 03/30/17 06:09; Admin Dose 1 MG; Start 03/19/17 at 02:30 Docusate Sodium (Colace) 100 mg Q12H PRN PO CONSTIPATION Last administered on 08:53; Admin Dose 100 MG; Start 03/19/17 at 02:30 Bisacodyl (Dulcolax) 5 mg DAILY PRN PO CONSTIPATION Last administered on 08:53; Admin Dose 5 MG; Start 03/19/17 at 02:30 Metoprolol Succinate (Toprol Xl) 25 mg DAILY PO Last administered on 03/31/17 08:16; Admin Dose 25 MG; Start 03/19/17 at 09:00 Sertraline HCl (Zoloft) 50 mg DAILY PO Last administered on 03/31/17 08:15; Admin Dose 50 MG; Start 03/19/17 at 09:00 Tramadol HCl (Ultram) 50 mg Q12 PRN PO PAIN Last administered on 03/31/17 08: 12; Admin Dose 50 MG; Start 03/19/17 at 05:30 Diagnostic Test (Pha) (Accu-Chek) 1 ea 02 XX ; Start 03/20/17 at 02:00 Miscellaneous Information 1 ea NOTE XX ; Start 03/19/17 at 15:30 Glucose (Glutose) 15 gm Q15M PRN PO DECREASED GLUCOSE; Start 03/19/17 at 15:30 Glucose (Glutose) 22.5 gm Q15M PRN PO DECREASED GLUCOSE; Start 03/19/17 at 15:30 Dextrose (D50w Syringe) 25 ml Q15M PRN IV DECREASED GLUCOSE; Start 03/19/17 at 15:30 Dextrose (D50w Syringe) 50 ml Q15M PRN IV DECREASED GLUCOSE; Start 03/19/17 at 15:30 Glucagon (Glucagen) 1 mg Q15M PRN IM DECREASED GLUCOSE; Start 03/19/17 at 15:30 Glucose (Glutose) 15 gm Q15M PRN BUCCAL DECREASED GLUCOSE; Start 03/19/17 at 15: 30 Nicotine (Nicoderm 21 Mg/ 24hr) 1 patch DAILY TRANSDERM Last administered on 08:16; Admin Dose 1 PATCH; Start 03/20/17 at 09:12 Zolpidem Tartrate (Ambien) 5 mg HS PRN PO INSOMNIA Last administered on 23:51; Admin Dose 5 MG; Start 03/22/17 at 00:00 Insulin Glargine (Lantus) 12 unit DAILY@09 SC Last administered on 03/31/17 08 :30; Admin Dose 12 UNIT; Start 03/25/17 at 09:00 Lactulose (Enulose) 30 gm Q8 PO Last administered on 03/31/17 06:29; Admin Dose 30 GM; Start 03/27/17 at 14:00 Diclofenac Sodium (Voltaren 1% Gel) 2 gm BID TP Last administered on 03/31/17 08:17; Admin Dose 2 GM; Start 03/29/17 at 18:00 Docusate Sodium (Colace) 250 mg BID PO Last administered on 03/31/17 08:15; Admin Dose 250 MG; Start 03/29/17 at 21:00 Ibuprofen (Motrin) 800 mg TID PO Last administered on 03/31/17 12:26; Admin Dose 800 MG; Start 03/29/17 at 21:00 EMILIO KOVACS MD Mar 31, 2017 13:52
--- NOTE | 2017-03-31 13:54 | PN ---
Date/Time of Note Date/Time of Note DATE: 03/31/17 TIME: 13:50 Assessment/Plan VTE Prophylaxis VTE Prophylaxis Intervention: ambulation Lines/Catheters IV Catheter Type (from Nrs): Saline Lock Urinary Cath still in place: Yes Reason Cath still needed: urinary retention Assessment/Plan Assessment/Plan Severe hepatocellular liver disease/likely acute hepatitis C * No evidence of acute liver failure * History of alcohol abuse * COPD * Diabetes mellitus type 2 * Obesity * Medical marijuana use Plan: * Continue present regimen * Stable for outpatient management * Follow up as outpatient in our clinic at [place] after 1 month * Case discussed with Dr Russ Subjective 24 Hr Interval Summary Free Text/Dictation * Course reviewed with RN * No untoward events overnight * Liver transaminase improving Exam/Review of Systems Vital Signs Vitals Vital Signs Date Time Temp Pulse Resp B/P Pulse Ox O2 Delivery O2 Flow Rate FiO2 03/31/17 08:31 65 18 97 21 03/31/17 07:46 97.6 146/75 03/29/17 02:00 Room Air Intake and Output 03/30/17 03/30/17 03/31/17 15:00 23:00 07:00 Intake Total 2120 ml Output Total 2200 ml Balance -80 ml Exam Constitutional: alert, oriented Psych: no complaints Head: normocephalic Eyes: icteric, nl conjunctiva ENMT: nl external ears & nose Neck: non-tender, supple Respiratory: clear to auscultation, normal air movement Cardiovascular: nl pulses, regular rate and rhythm Gastrointestinal: non-tender, soft Musculoskeletal: nl extremities to inspection, nl gait and stance Extremities: normal pulses Neurological: nl speech, nl strength Skin: nl turgor, No rash or lesions Lymph: nl lymph nodes Results Result Diagram: 03/31/17 0520 03/31/17 0520 Results 24 hrs Laboratory Tests Test 03/30/17 14:50 03/30/17 15:15 03/30/17 17:55 03/30/17 21:59 Osmolality 279 L Urine Osmolality 256 Urine Random Sodium 37 Bedside Glucose 141 106 Test 03/31/17 05:20 03/31/17 08:21 03/31/17 12:19 White Blood Count 7.3 Red Blood Count 4.68 Hemoglobin 13.8 Hematocrit 39.3 Mean Corpuscular Volume 84.0 Mean Corpuscular Hemoglobin 29.5 Mean Corpuscular Hemoglobin Concent 35.1 Red Cell Distribution Width 20.5 H Platelet Count 260 Mean Platelet Volume 11.8 H Neutrophils % 54.3 Lymphocytes % 30.4 Monocytes % 9.9 Eosinophils % 2.8 Basophils % 1.8 Nucleated Red Blood Cells % 0.0 Neutrophils # 3.9 Lymphocytes # 2.2 Monocytes # 0.7 Eosinophils # 0.2 Basophils # 0.1 Nucleated Red Blood Cells # 0.0 Sodium Level 130 L Potassium Level 4.0 Chloride Level 98 Carbon Dioxide Level 30 Anion Gap 6 L Blood Urea Nitrogen 10 Creatinine 0.75 Glucose Level 96 Calcium Level 8.7 Total Bilirubin 12.9 H Direct Bilirubin 10.70 H Indirect Bilirubin 2.2 H Aspartate Amino Transf (AST/SGOT) 585 H Alanine Aminotransferase (ALT/SGPT) 326 H Alkaline Phosphatase 172 H Total Protein 6.2 Albumin 3.0 L Bedside Glucose 103 157 Medications Medications Current Medications Ondansetron HCl (Zofran Inj) 4 mg Q6H PRN IV NAUSEA AND/OR VOMITING Last administered on 03/24/17 20:12; Admin Dose 4 MG; Start 03/19/17 at 02:30 Morphine Sulfate (morphine) 1 mg Q4H PRN IV SEVERE PAIN LEVEL 7-10 Last administered on 03/30/17 06:09; Admin Dose 1 MG; Start 03/19/17 at 02:30 Docusate Sodium (Colace) 100 mg Q12H PRN PO CONSTIPATION Last administered on 08:53; Admin Dose 100 MG; Start 03/19/17 at 02:30 Bisacodyl (Dulcolax) 5 mg DAILY PRN PO CONSTIPATION Last administered on 08:53; Admin Dose 5 MG; Start 03/19/17 at 02:30 Metoprolol Succinate (Toprol Xl) 25 mg DAILY PO Last administered on 03/31/17 08:16; Admin Dose 25 MG; Start 03/19/17 at 09:00 Sertraline HCl (Zoloft) 50 mg DAILY PO Last administered on 03/31/17 08:15; Admin Dose 50 MG; Start 03/19/17 at 09:00 Tramadol HCl (Ultram) 50 mg Q12 PRN PO PAIN Last administered on 03/31/17 08: 12; Admin Dose 50 MG; Start 03/19/17 at 05:30 Diagnostic Test (Pha) (Accu-Chek) 1 ea 02 XX ; Start 03/20/17 at 02:00 Miscellaneous Information 1 ea NOTE XX ; Start 03/19/17 at 15:30 Glucose (Glutose) 15 gm Q15M PRN PO DECREASED GLUCOSE; Start 03/19/17 at 15:30 Glucose (Glutose) 22.5 gm Q15M PRN PO DECREASED GLUCOSE; Start 03/19/17 at 15:30 Dextrose (D50w Syringe) 25 ml Q15M PRN IV DECREASED GLUCOSE; Start 03/19/17 at 15:30 Dextrose (D50w Syringe) 50 ml Q15M PRN IV DECREASED GLUCOSE; Start 03/19/17 at 15:30 Glucagon (Glucagen) 1 mg Q15M PRN IM DECREASED GLUCOSE; Start 03/19/17 at 15:30 Glucose (Glutose) 15 gm Q15M PRN BUCCAL DECREASED GLUCOSE; Start 03/19/17 at 15: 30 Nicotine (Nicoderm 21 Mg/ 24hr) 1 patch DAILY TRANSDERM Last administered on 08:16; Admin Dose 1 PATCH; Start 03/20/17 at 09:12 Zolpidem Tartrate (Ambien) 5 mg HS PRN PO INSOMNIA Last administered on 23:51; Admin Dose 5 MG; Start 03/22/17 at 00:00 Insulin Glargine (Lantus) 12 unit DAILY@09 SC Last administered on 03/31/17 08 :30; Admin Dose 12 UNIT; Start 03/25/17 at 09:00 Lactulose (Enulose) 30 gm Q8 PO Last administered on 03/31/17 06:29; Admin Dose 30 GM; Start 03/27/17 at 14:00 Diclofenac Sodium (Voltaren 1% Gel) 2 gm BID TP Last administered on 03/31/17 08:17; Admin Dose 2 GM; Start 03/29/17 at 18:00 Docusate Sodium (Colace) 250 mg BID PO Last administered on 03/31/17 08:15; Admin Dose 250 MG; Start 03/29/17 at 21:00 Ibuprofen (Motrin) 800 mg TID PO Last administered on 03/31/17 12:26; Admin Dose 800 MG; Start 03/29/17 at 21:00 SHEREEN BAER NP Mar 31, 2017 13:54
[2017-03-31 14:01] VITALS: BP 132/78; RESP 16
[2017-03-31] MEDS: morphine 2 MG INJ IV PRN (18:48)
[2017-03-31 20:25] VITALS: BP 124/72; RESP 18
[2017-03-31] MEDS: ZOLPIDEM 5 MG TAB PO PRN (21:12)
[2017-04-01] MEDS: ACCU-CHEK XX SCH (01:15)
[2017-04-01 03:24] VITALS: BP 136/71; RESP 20
[2017-04-01] MEDS: LACTULOSE 30ML CUP PO SCH (05:42)
[2017-04-01] MEDS: morphine 2 MG INJ IV PRN (05:51)
[2017-04-01 06:09] LABS: ADD SCAN DIFF NO
[2017-04-01 06:48] LABS: CALCIUM 8.9 mg/dl (8.4-10.2); CREATININE 0.79 mg/dl (0.44-1.00); POTASSIUM 4.3 mmol/L (3.5-5.1)
[2017-04-01 06:55] LABS: ALBUMIN 3.3 g/dl (3.3-4.9); BILIRUBIN,DIRECT 6.7 mg/dl (0.00-0.20); BILIRUBIN,TOTAL 8.7 mg/dl (0.2-1.3); TOTAL PROTEIN 6.6 g/dl (6.1-8.1)
[2017-04-01 07:33] VITALS: BP 141/84; RESP 16
[2017-04-01] MEDS: ALBUTEROL/IPRATROPIUM (NEB) 3 ML AMP HHN SCH (08:15)
[2017-04-01] MEDS: METOPROLOL (XL) 25 MG TAB PO SCH (08:34)
[2017-04-01] MEDS: SERTRALINE 50 MG TAB PO SCH (08:34)
[2017-04-01] MEDS: IBUPROFEN 800 MG TAB PO SCH ×2 (08:34→13:00)
[2017-04-01] MEDS: PANTOPRAZOLE (EC) 40 MG TAB PO SCH (08:34)
[2017-04-01] MEDS: DICLOFENAC SODIUM 1% GEL 100 GM TUBE TP SCH (08:34)
[2017-04-01] MEDS: DOCUSATE SODIUM 250 MG CAP PO SCH (08:34)
[2017-04-01] MEDS: NICOTINE (21 MG/24 HR) PATCH TRANSDERM SCH (08:35)
[2017-04-01] MEDS: INSULIN GLARGINE [LANtus] 3 ML PEN SC SCH (08:37)
[2017-04-01] MEDS: INSULIN ASPART [NOVOLOG] 3 ML PEN SC SCH ×4 (08:38→11:57)
[2017-04-01 09:03] LABS: BASOPHIL # 0.1 10^3/ul (0.0-0.1); BASOPHILS % 1.8 % (0.0-2.0); EOSINOPHILS # 0.2 10^3/ul (0.0-0.5); EOSINOPHILS % 2.5 % (0.0-7.0); HEMATOCRIT 40.4 % (37.0-47.0); HEMOGLOBIN 13.9 g/dl (12.0-16.0); LYMPHOCYTES # 2.3 10^3/ul (0.8-2.9); LYMPHOCYTES % 30.7 % (15.0-51.0); MEAN CORPUSCULAR HEMOGLOBIN 29.3 pg (29.0-33.0); MEAN CORPUSCULAR HGB CONC 34.4 g/dl (32.0-37.0); MEAN CORPUSCULAR VOLUME 85.1 fl (82.0-101.0); MEAN PLATELET VOLUME 12.6 fl (7.4-10.4); MONOCYTE # 0.8 10^3/ul (0.3-0.9); MONOCYTES % 9.9 % (0.0-11.0); NEUTROPHIL # 4.1 10^3/ul (1.6-7.5); NEUTROPHILS % 54.2 % (39.0-77.0); PLATELET COUNT 239 10^3/UL (140-415); RED BLOOD COUNT 4.75 10^6/ul (4.20-5.40); RED CELL DISTRIBUTION WIDTH 21.1 % (11.5-14.5); WHITE BLOOD COUNT 7.6 10^3/ul (4.8-10.8)
[2017-04-01] MEDS ORDERED: LANT3I SC (10:27)
[2017-04-01] MEDS ORDERED: NOVO3I SC (10:27)
[2017-04-01] MEDS ORDERED: NICO1PAT6 TRANSDERM (10:27)
--- NOTE | 2017-04-01 10:30 | PDOCDIS ---
Discharge Instructions CONDITION Patient Condition: Stable HOME CARE INSTRUCTIONS: Special Diet: soft diet ACTIVITY: Activity Restrictions: Slowly Increase Activity FOLLOW UP/APPOINTMENTS Follow-up Plan Follow up with your regular doctor to discuss your poorly controlled diabetes within 7 days check your blood sugar three times daily and record the results for your regular doctor Schedule a follow up with the GI/stomach/liver doctors within 4 weeks to get your hepatitis C treated Dr Liset Russ Office Address [id number] [address] Office EMILIO KOVACS MD Apr 01, 2017 10:30
--- NOTE | 2017-04-01 10:44 | DS ---
Date/Time of Note Date/Time of Note DATE: 04/01/17 TIME: 10:30 Discharge Summary Admission/Discharge Info Admit Date/Time Mar 18, 2017 at 22:14 Discharge Date/Time Patient Condition: Stable Consults gastroenterology Procedures 6.30 GB US IMPRESSION: Gallbladder wall thickening appears to be secondary to contraction. No gallstones are seen. Normal caliber intrahepatic and extrahepatic biliary system. 6.30 CT AP with contrast IMPRESSION: Nonspecific stranding and fluid surrounding a contracted gallbladder and proximal duodenum. Mild thickening of bilateral adrenal glands. Vascular calcifications reflective of atherosclerosis. Degenerative changes of the spine. 7.2 MRCP IMPRESSION: Small free fluid and inflammation surrounding the contracted gallbladder within the gallbladder fossa and subhepatic space. No radiologic evidence of biliary dilatation, choledocholithiasis, or biliary obstruction. 7.5: a1c 10.3 Hx of Present Illness Chief complaint: Yellow eyes This is a 36-year-old female with a history of hypertension diabetes who presents to the emergency room for evaluation of nausea, and yellow coloring of her skin and eyes for the past 2 days. The patient denies any abdominal pain and came to the emergency room for further evaluation. She denies drinking any alcohol, denies using any drugs but does state that she has history of fatty liver. She denies any recent contacts or travel. She does have tattoos however she has had them for quite some time now. He denies any recent bug bites Allergies: NKDA Medications: See MAR Hospital Course Transaminitis/hyperbili work up notable for finding of +HepC Ab and + VL. HepA and HepB testing negative. TIM/Anti Sm ab testing negative therefore no evidence of AIH. Ceruloplasmin neg-->no [place]. Iron levels not markedly elevated. Alpha 1 antitrypsin nl. EBV and CMV testing consistent with previous exposure (IgG's +, IgMs -). HIV negative. Monospot negative. APAP level negative. Etio of pt's hyperbilirubinemia and transaminitis never fully elucidated. Regardless, without intervention bilis and transaminated improved. DBili peaked at 15 on 7.8, down to <7 by date of discharge. TBili peaked at 17 7.8, down to < 9 by date of discharge. AST peak 1400s 7.3-->400s date of discharge. ALT peaked at 640s 7.3-->high 200s date of discharge. Pt advised to f/u with GI for HepC treatment. Pt also with very poor DM control as evidence by A1c in 10s. Pt's home metformin stopped and she was started on basal/bolus insulin. Home Meds Active Scripts Insulin Aspart* (Novolog Insulin Pen*) 100 Unit/Ml Soln, 3 UNIT SC WITH MEALS for 14 Days, #1 VIAL Prov:EMILIO KOVACS MD 04/01/17 Insulin Glargine* (Lantus*) 100 Unit/Ml Soln, 12 UNIT SC DAILY@09 for 14 Days, # 1 VIAL Prov:EMILIO KOVACS MD 04/01/17 Nicotine* (Nicotine* Patch) 21 mg/day Patch, 1 PATCH TRANSDERM DAILY for 14 Days , #14 Prov:EMILIO KOVACS MD 04/01/17 Reported Medications Diclofenac Sodium* (Voltaren* Gel) 1% -100 Gm Gel, 2 GM TOP BID, #1 TUB 03/18/17 Tramadol Hcl* (Ultram*) 50 Mg Tablet, 50 MG PO Q12 Y for PAIN, TAB 03/18/17 Misoprostol (Misoprostol) 200 Mcg Tablet, 200 MCG PO BID, TAB 03/18/17 Pantoprazole* (Pantoprazole*) 40 Mg Tablet.dr, 40 MG PO AC BREAKFAST, TAB 03/18/17 Metoprolol Succinate* (Toprol XL*) 25 Mg Tab.sr.24h, 25 MG PO DAILY, #30 TAB 03/18/17 Sertraline Hcl* (Sertraline Hcl*) 50 Mg Tablet, 50 MG PO DAILY, #30 TAB 03/18/17 Metformin Hcl* (Metformin Hcl*) 850 Mg Tablet, 850 MG PO WITH MEALS, #90 TAB 03/18/17 Docusate Sodium* (Dok*) 250 Mg Capsule, 250 MG PO BID, #60 CAP 03/18/17 Ibuprofen* (Ibuprofen*) 800 Mg Tab, 800 MG PO TID, TAB 03/18/17 Follow-up Plan PCP within 7 days for DM care GI within 4 weeks for HepC care Primary Care Provider Not On Staff Doctor Time spent on discharge: > 30 minutes Pending Labs Laboratory Tests Test 03/31/17 12:19 03/31/17 17:13 03/31/17 21:10 04/01/17 05:41 Bedside Glucose 157mg/dL (70-220) 120mg/dL (70-220) 158mg/dL (70-220) White Blood Count 7.610^3/ul (4.8-10.8) Red Blood Count 4.7510^6/ul (4.20-5.40) Hemoglobin 13.9g/dl (12.0-16.0) Hematocrit 40.4% (37.0-47.0) Mean Corpuscular Volume 85.1fl (82.0-101.0) Mean Corpuscular Hemoglobin 29.3pg (29.0-33.0) Mean Corpuscular Hemoglobin Concent 34.4g/dl (32.0-37.0) Red Cell Distribution Width 21.1% (11.5-14.5) Platelet Count 78817^3/UL (140-415) Mean Platelet Volume 12.6fl (7.4-10.4) Neutrophils % 54.2% (39.0-77.0) Lymphocytes % 30.7% (15.0-51.0) Monocytes % 9.9% (0.0-11.0) Eosinophils % 2.5% (0.0-7.0) Basophils % 1.8% (0.0-2.0) Nucleated Red Blood Cells % 0.0/100WBC (0.0-0.0) Neutrophils # 4.110^3/ul (1.6-7.5) Lymphocytes # 2.310^3/ul (0.8-2.9) Monocytes # 0.810^3/ul (0.3-0.9) Eosinophils # 0.210^3/ul (0.0-0.5) Basophils # 0.110^3/ul (0.0-0.1) Nucleated Red Blood Cells # 0.010^3/ul (0.0-0.0) Sodium Level 132mmol/L (135-144) Potassium Level 4.3mmol/L (3.5-5.1) Chloride Level 99mmol/L (97-110) Carbon Dioxide Level 29mmol/L (21-31) Anion Gap 8 (8-16) Blood Urea Nitrogen 11mg/dl (7-20) Creatinine 0.79mg/dl (0.44-1.00) Glucose Level 119mg/dl (70-220) Calcium Level 8.9mg/dl (8.4-10.2) Total Bilirubin 8.7mg/dl (0.2-1.3) Direct Bilirubin 6.70mg/dl (0.00-0.20) Indirect Bilirubin 2.0mg/dl (0-1.1) Aspartate Amino Transf (AST/SGOT) 453IU/L (15-46) Alanine Aminotransferase (ALT/SGPT) 289IU/L (13-69) Alkaline Phosphatase 182IU/L (42-121) Total Protein 6.6g/dl (6.1-8.1) Albumin 3.3g/dl (3.3-4.9) Test 04/01/17 07:54 Bedside Glucose 141mg/dL (70-220) EMILIO KOVACS MD Apr 01, 2017 10:41
--- NOTE | 2017-04-01 11:55 | PN ---
Date/Time of Note Date/Time of Note DATE: 04/01/17 TIME: 11:52 Assessment/Plan VTE Prophylaxis VTE Prophylaxis Intervention: ambulation Lines/Catheters IV Catheter Type (from Nrs): Saline Lock Urinary Cath still in place: Yes Reason Cath still needed: urinary retention Assessment/Plan Assessment/Plan Severe hepatocellular liver disease/likely acute hepatitis C improved * No evidence of acute liver failure * History of alcohol abuse * COPD * Diabetes mellitus type 2 * Obesity * Medical marijuana use Plan: * Continue present regimen * Stable for outpatient management * Follow up as outpatient in our clinic at [place] after 1 month * Case discussed with Dr Russ Subjective 24 Hr Interval Summary Free Text/Dictation * Course reviewed with RN * Patient seen and examined * Improving LFTs * No untoward incident overnight Exam/Review of Systems Vital Signs Vitals Vital Signs Date Time Temp Pulse Resp B/P Pulse Ox O2 Delivery O2 Flow Rate FiO2 04/01/17 08:15 63 18 95 21 04/01/17 07:33 98.1 141/84 03/29/17 02:00 Room Air Intake and Output 03/31/17 03/31/17 04/01/17 15:00 23:00 07:00 Intake Total 920 ml 1080 ml 600 ml Output Total 600 ml 1450 ml 1000 ml Balance 320 ml -370 ml -400 ml Exam Constitutional: alert, oriented Eyes: icteric Neck: non-tender, supple Respiratory: clear to auscultation, normal air movement Cardiovascular: nl pulses, regular rate and rhythm Gastrointestinal: nl liver, spleen, non-tender, soft Musculoskeletal: nl extremities to inspection, nl gait and stance Extremities: normal pulses Neurological: nl speech, nl strength Skin: nl turgor, No rash or lesions Lymph: nl lymph nodes Results Result Diagram: 04/01/17 0541 04/01/17 0541 Results 24 hrs Laboratory Tests Test 03/31/17 12:19 03/31/17 17:13 03/31/17 21:10 04/01/17 05:41 Bedside Glucose 157 120 158 White Blood Count 7.6 Red Blood Count 4.75 Hemoglobin 13.9 Hematocrit 40.4 Mean Corpuscular Volume 85.1 Mean Corpuscular Hemoglobin 29.3 Mean Corpuscular Hemoglobin Concent 34.4 Red Cell Distribution Width 21.1 H Platelet Count 239 Mean Platelet Volume 12.6 H Neutrophils % 54.2 Lymphocytes % 30.7 Monocytes % 9.9 Eosinophils % 2.5 Basophils % 1.8 Nucleated Red Blood Cells % 0.0 Neutrophils # 4.1 Lymphocytes # 2.3 Monocytes # 0.8 Eosinophils # 0.2 Basophils # 0.1 Nucleated Red Blood Cells # 0.0 Sodium Level 132 L Potassium Level 4.3 Chloride Level 99 Carbon Dioxide Level 29 Anion Gap 8 Blood Urea Nitrogen 11 Creatinine 0.79 Glucose Level 119 Calcium Level 8.9 Total Bilirubin 8.7 #H Direct Bilirubin 6.70 #H Indirect Bilirubin 2.0 H Aspartate Amino Transf (AST/SGOT) 453 H Alanine Aminotransferase (ALT/SGPT) 289 H Alkaline Phosphatase 182 H Total Protein 6.6 Albumin 3.3 Test 04/01/17 07:54 Bedside Glucose 141 Medications Medications Current Medications Ondansetron HCl (Zofran Inj) 4 mg Q6H PRN IV NAUSEA AND/OR VOMITING Last administered on 03/24/17 20:12; Admin Dose 4 MG; Start 03/19/17 at 02:30 Docusate Sodium (Colace) 100 mg Q12H PRN PO CONSTIPATION Last administered on 08:53; Admin Dose 100 MG; Start 03/19/17 at 02:30 Bisacodyl (Dulcolax) 5 mg DAILY PRN PO CONSTIPATION Last administered on 08:53; Admin Dose 5 MG; Start 03/19/17 at 02:30 Metoprolol Succinate (Toprol Xl) 25 mg DAILY PO Last administered on 04/01/17 08:34; Admin Dose 25 MG; Start 03/19/17 at 09:00 Sertraline HCl (Zoloft) 50 mg DAILY PO Last administered on 04/01/17 08:34; Admin Dose 50 MG; Start 03/19/17 at 09:00 Tramadol HCl (Ultram) 50 mg Q12 PRN PO PAIN Last administered on 03/31/17 08: 12; Admin Dose 50 MG; Start 03/19/17 at 05:30 Diagnostic Test (Pha) (Accu-Chek) 1 ea 02 XX ; Start 03/20/17 at 02:00 Miscellaneous Information 1 ea NOTE XX ; Start 03/19/17 at 15:30 Glucose (Glutose) 15 gm Q15M PRN PO DECREASED GLUCOSE; Start 03/19/17 at 15:30 Glucose (Glutose) 22.5 gm Q15M PRN PO DECREASED GLUCOSE; Start 03/19/17 at 15:30 Dextrose (D50w Syringe) 25 ml Q15M PRN IV DECREASED GLUCOSE; Start 03/19/17 at 15:30 Dextrose (D50w Syringe) 50 ml Q15M PRN IV DECREASED GLUCOSE; Start 03/19/17 at 15:30 Glucagon (Glucagen) 1 mg Q15M PRN IM DECREASED GLUCOSE; Start 03/19/17 at 15:30 Glucose (Glutose) 15 gm Q15M PRN BUCCAL DECREASED GLUCOSE; Start 03/19/17 at 15: 30 Nicotine (Nicoderm 21 Mg/ 24hr) 1 patch DAILY TRANSDERM Last administered on 08:35; Admin Dose 1 PATCH; Start 03/20/17 at 09:12 Zolpidem Tartrate (Ambien) 5 mg HS PRN PO INSOMNIA Last administered on 21:12; Admin Dose 5 MG; Start 03/22/17 at 00:00 Insulin Glargine (Lantus) 12 unit DAILY@09 SC Last administered on 04/01/17 08 :37; Admin Dose 12 UNIT; Start 03/25/17 at 09:00 Lactulose (Enulose) 30 gm Q8 PO Last administered on 04/01/17 05:42; Admin Dose 30 GM; Start 03/27/17 at 14:00 Diclofenac Sodium (Voltaren 1% Gel) 2 gm BID TP Last administered on 03/31/17 21:12; Admin Dose 2 GM; Start 03/29/17 at 18:00 Docusate Sodium (Colace) 250 mg BID PO Last administered on 04/01/17 08:34; Admin Dose 250 MG; Start 03/29/17 at 21:00 Ibuprofen (Motrin) 800 mg TID PO Last administered on 04/01/17 08:34; Admin Dose 800 MG; Start 03/29/17 at 21:00 SHEREEN BAER NP Apr 01, 2017 11:54
== END 2017-04-01 14:25 | disposition home or self-care (01) | DRG 442 ==
LOC: E/R 17:47 → MS2 22:14
PROVIDERS: ADMIT Family Medicine; ATTEND Family Medicine
DX: E80.6 Other disorders of bilirubin metabolism (principal); B17.10 Acute hepatitis C without hepatic coma; I10 Essential (primary) hypertension; N30.00 Acute cystitis without hematuria; Q44.7 Other congenital malformations of liver; F12.90 Cannabis use, unspecified, uncomplicated; Z72.0 Tobacco use; E11.9 Type 2 diabetes mellitus without complications; J44.9 Chronic obstructive pulmonary disease, unspecified; E66.9 Obesity, unspecified; Z68.34 Body mass index [BMI] 34.0-34.9, adult; F32.9 Major depressive disorder, single episode, unspecified
CPT/HCPCS: 36415; 74177; 74181; 76705; 80048; 80053; 80061; 80076; 80306; 80307; 81001; 82103; 82140; 82247; 82248; 82390; 82533; 82962; 83010; 83036; 83540; 83615; 83690; 83735; 83930; 83935; 84100; 84300; 84436; 84443; 84450; 84460; 84479; 85025; 85045; 85610; 86038; 86255; 86308; 86644; 86664; 86703; 86704; 86706; 86709; 86803; 87086; 87340; 94640; 94644; 94664; 96374; 96375; 96376; 97116; 97164; 97530; C9113; J0696; J1815; J2270; J2405; J3475; J7030; J7120; Q9967

== ENCOUNTER 2017-10-18 13:36 | Emergency (ER) | END 2017-10-18 15:17 | disposition home or self-care (01) ==

== ENCOUNTER 2018-02-27 16:05 | Emergency (ER) | END 2018-02-27 20:12 | disposition left against medical advice (07) ==

== ENCOUNTER 2019-01-24 14:37 | Emergency (ER) | payer MEDICARE, OTHER ==
[~2019-01-24] VITALS: Ht 167.6 cm; Wt 80.0 kg
[~2019-01-24 14:37] MED LIST changes: +DICL100G37 TOP; +HYDR-4011 PO; +IBUP-1542 PO; +IBUP-1545 PO; +LANT3I SC; +METF-849 PO; +METO-335 PO; +MISO200T3 PO; +NICO-546 TRANSDERM; -NO MEDS; +NOVO3I SC; +PANT40TA4 PO; +SERT50TA6 PO; +TRAM50TA PO
[2019-01-24] MEDS ORDERED: SOD CHLORIDE 0.9% 1,000 ML IV STA (14:45)
[2019-01-24 15:23] VITALS: Ht 167.6 cm; Wt 80.0 kg
[2019-01-24] MEDS ORDERED: MTF1000T PO (17:00)
[2019-01-24] MEDS ORDERED: INSULIN LISPRO 100 UNIT/ML VIAL SC ONE (17:00)
--- NOTE | 2019-01-24 18:28 | ERD ---
ER Documentation Chief Complaint Chief Complaint BIBA C/O FATIGUE AND HYPERGLYCEMIA HPI Patient is a 58-year-old female with coronary disease, hypertension, and diabetes who presents with weakness diffusely and high blood sugar. She was brought in by ambulance. Her sugar was "high" by paramedics. The retirement called 911. She was feeling diffusely weak. She ate a strawberry shake and cake prior to her sugar going up. She said that her last insulin was "months ago". She was supposed to be taking metformin 850 mg twice daily as well. Upon review of old medical records this is the patient's fifth visit since 2010. ROS All systems reviewed and are negative except as per history of present illness. Medications Home Meds Active Scripts Metformin* (Glucophage*) 1,000 Mg Tablet, 1000 MG PO BID, #60 TAB Prov:ASIF KHAN MD 01/24/19 Discontinued Reported Medications Diclofenac Sodium* (Voltaren* Gel) 1% -100 Gm Gel, 2 GM TOP BID, #1 TUB 03/18/17 Tramadol Hcl* (Ultram*) 50 Mg Tablet, 50 MG PO Q12 PRN for PAIN, TAB 03/18/17 Misoprostol (Misoprostol) 200 Mcg Tablet, 200 MCG PO BID, TAB 03/18/17 Pantoprazole* (Pantoprazole*) 40 Mg Tablet.dr, 40 MG PO AC BREAKFAST, TAB 03/18/17 Metoprolol Succinate* (Toprol XL*) 25 Mg Tab.sr.24h, 25 MG PO DAILY, #30 TAB 03/18/17 Sertraline Hcl* (Sertraline Hcl*) 50 Mg Tablet, 50 MG PO DAILY, #30 TAB 03/18/17 Ibuprofen* (Ibuprofen*) 800 Mg Tab, 800 MG PO TID, TAB 03/18/17 Discontinued Scripts Metformin* (Glucophage*) 500 Mg Tab, 850 MG PO DAILY, #10 TAB Prov:MITCH RO MD 02/27/18 Insulin Glargine* (Lantus*) 100 Unit/Ml Soln, 12 UNIT SC QHS for 10 Days, #1 VIAL Prov:MITCH OR MD 02/27/18 Hydrocodone/Acetaminophen ([place] 5-325 Tablet) 1 Each Tablet, 1 TAB PO Q6H PRN for PAIN, #20 TAB Prov:KIM MOULTON DO 10/18/17 Ibuprofen* (Motrin*) 600 Mg Tab, 600 MG PO Q8, #30 TAB Prov:KIM MOULTON DO 10/18/17 Insulin Aspart* (Novolog Insulin Pen*) 100 Unit/Ml Soln, 3 UNIT SC WITH MEALS for 14 Days, #1 VIAL Prov:EMILIO KOVACS MD 04/01/17 Insulin Glargine* (Lantus*) 100 Unit/Ml Soln, 12 UNIT SC DAILY@09 for 14 Days, #1 VIAL Prov:EMILIO KOVACS MD 04/01/17 Nicotine* (Nicotine* Patch) 21 mg/day Patch, 1 PATCH TRANSDERM DAILY for 14 Days, #14 Prov:EMILIO KOVACS MD 04/01/17 Allergies Allergies: Coded Allergies: No Known Allergies (Verified Allergy, Mild, 01/24/19) PMhx/Soc History of Surgery: Yes (HYSTERECTOMY, C -SECTION X 1) Anesthesia Reaction: No Hx Neurological Disorder: Yes (NEUROPATHY) Hx Respiratory Disorders: No Hx Cardiac Disorders: Yes (HTN,) Hx Psychiatric Problems: Yes (DEPRESSION,ANXIETY) Hx Miscellaneous Medical Probl: Yes (HTN, DM, OA) Hx Alcohol Use: No Hx Substance Use: No Hx Tobacco Use: Yes Smoking Status: Current every day smoker FmHx Family History: diabetes Physical Exam Vitals Vital Signs Date Temp Pulse Resp B/P (MAP) Pulse Ox O2 O2 Flow FiO2 Time Delivery Rate 01/24/19 96 22 140/86 95 Room Air 16:30 (104) 01/24/19 98.4 92 16 122/85 95 15:23 (97) Physical Exam Const: No acute distress Head: Atraumatic Eyes: Normal Conjunctiva ENT: Normal External Ears, Nose and Mouth. Neck: Full range of motion. No meningismus. Resp: Clear to auscultation bilaterally Cardio: Regular rate and rhythm, no murmurs Abd: Soft, non tender, non distended. Normal bowel sounds Skin: No petechiae or rashes Back: No midline or flank tenderness Ext: No cyanosis, or edema Neur: Awake and alert, no focal weakness Psych: Normal Mood and Affect Result Diagram: 01/24/19 1501 01/24/19 1501 Results 24 hrs Laboratory Tests Test 01/24/19 14:45 01/24/19 15:01 01/24/19 15:02 01/24/19 15:21 Blood Gas Blood venous Specimen Source Arterial Blood 01/24/2019 3:40:4 Date Drawn 8 PM Arterial Blood OTHER Gas Puncture Site Aneudy Test N/A Venous Blood pH 7.422 Venous Blood 36.1 mmHG pCO2 (Temp Corrected) Venous Blood pO2 52.9 mmHG (Temp Corrected) Venous Blood 23.0 mmol/L HCO3 Venous Blood 89.3 mmHG Oxygen Saturation Venous Blood -0.9 mmol/L Base Excess Venous Blood 15.1 g/dl Total Hemoglobin Venous Blood 84.5 % Oxyhemoglobin Venous Blood 0.2 % Methemoglobin Blood Gas A-a O2 53.6 mmHg Differential Carboxyhemoglobi 5.2 % n Blood Gas 37.0 C Temperature Blood Gas ROOM AIR Modality FiO2 21.0 % Blood Gas MDA Notified Whom Blood Gas 01/24/2019 3:45:3 Notified Time 1 PM White Blood 9.0 10^3/ul Count Red Blood Count 4.93 10^6/ul Hemoglobin 15.2 g/dl Hematocrit 45.0 % Mean Corpuscular 91.3 fl Volume Mean Corpuscular 30.8 pg Hemoglobin Mean Corpuscular 33.8 g/dl Hemoglobin Samra nt Red Cell 11.9 % Distribution Width Platelet Count 221 10^3/UL Mean Platelet 12.1 fl Volume Immature 0.700 % Granulocytes % Neutrophils % 59.1 % Lymphocytes % 29.9 % Monocytes % 6.9 % Eosinophils % 2.1 % Basophils % 1.3 % Nucleated Red 0.0 /100WBC Blood Cells % Immature 0.060 10^3/ul Granulocytes # Neutrophils # 5.3 10^3/ul Lymphocytes # 2.7 10^3/ul Monocytes # 0.6 10^3/ul Eosinophils # 0.2 10^3/ul Basophils # 0.1 10^3/ul Nucleated Red 0.0 10^3/ul Blood Cells # Sodium Level 132 mmol/L Potassium Level 4.8 mmol/L Chloride Level 98 mmol/L Carbon Dioxide 25 mmol/L Level Anion Gap 9 Blood Urea 12 mg/dl Nitrogen Creatinine 0.41 mg/dl Est Glomerular > 60 mL/min Filtrat Rate mL/min Glucose Level 587 mg/dl Calcium Level 9.4 mg/dl Phosphorus Level 4.2 mg/dl Magnesium Level 1.9 mg/dl Urine Color COLORLESS Urine Clarity CLEAR Urine pH 7.0 Urine Specific 1.029 [place] Urine Ketones NEGATIVE mg/dL Urine Nitrite NEGATIVE mg/dL Urine Bilirubin NEGATIVE mg/dL Urine NEGATIVE mg/dL Urobilinogen Urine Leukocyte NEGATIVE Awais/ul Esterase Urine Hemoglobin NEGATIVE mg/dL Urine Glucose 3+ mg/dL Urine Total NEGATIVE mg/dl Protein Bedside Glucose 490 mg/dL Test 01/24/19 17:03 01/24/19 18:23 Bedside Glucose 453 mg/dL 303 mg/dL Current Medications Medications Dose Sig/Antelmo Start Time Status Last (Trade) Ordered Route PRN Stop Time Admin Dose Reason Admin Sodium 1,000 ml @ Q1H STAT 01/24/19 DC 01/24/19 Chloride 1,000 mls/hr IV 14:45 01/24/19 15:24 15:44 Insulin 20 unit ONCE ONCE 01/24/19 DC 01/24/19 Human SC 17:00 01/24/19 17:07 Lispro 17:01 (Humalog) Diagnostic 1 ea 2 HRS AFTER 01/24/19 01/24/19 Test (Pha) HUMALOG ONCE 19:00 01/24/19 18:25 (Accu-Chek) XX 19:01 Procedures/MDM Smoking Cessation Therapy: Pt. was lectured for greater than 3 minutes on the health risks of continued smoking and the benefits of cessation. Patient is a 58-year-old female who presents with weakness and hyperglycemia. She was given 1 L of normal saline for fluid resuscitation. She was given 20 units of subcutaneous insulin. She is not in diabetic ketoacidosis at this time. I believe outpatient management is appropriate. I doubt stroke or serious electrolyte abnormality. The patient will be given metformin 1 g twice daily given her hyperglycemia. Departure Diagnosis: Primary Impression: Hyperglycemia Condition: Fair Patient Instructions: Hyperglycemia (High Blood Sugar) Referrals: COMM[facility]ITY CL[facility] YOU HAVE RECEIVED A MEDICAL SCREENING EXAM AND THE RESULTS INDICATE THAT YOU DO NOT HAVE A CONDITION THAT REQUIRES URGENT TREATMENT IN THE EMERGENCY DEPARTMENT. FURTHER EVALUATION AND TREATMENT OF YOUR CONDITION CAN WAIT UNTIL YOU ARE SEEN IN YOUR DOCTORS OFFICE WITHIN THE NEXT 1-2 DAYS. IT IS YOUR RESPONSIBILITY TO MAKE AN APPOINTMENT FOR FOLOW-UP CARE. IF YOU HAVE A PRIMARY DOCTOR --you should call your primary doctor and schedule an appointment IF YOU DO NOT HAVE A PRIMARY DOCTOR YOU CAN CALL OUR PHYSICIAN REFERRAL HOTLINE AT IF YOU CAN NOT AFFORD TO SEE A PHYSICIAN YOU CAN CHOSE FROM THE FOLLOWING [facility] CLINICS [facility] [address] [facility] [facility] [address] [facility] [address] [facility]. [facility] [address] [facility]. [facility] [address] [facility]. [facility] [address] Additional Instructions: Call your primary care doctor TOMORROW for an appointment during the next 1-2 days.See the doctor sooner or return here if your condition worsens before your appointment time. ASIF KHAN MD January 24, 2019 18:28
[2019-01-24] MEDS ORDERED: ACCU-CHEK XX ONE (19:00)
[2019-01-24 19:22] VITALS: BP 146/85; PULSE 100; RESP 22
== END 2019-01-24 19:24 | disposition home or self-care (01) ==
LOC: E/R 14:37
DX: E11.65 Type 2 diabetes mellitus with hyperglycemia (principal); I10 Essential (primary) hypertension; I25.10 Atherosclerotic heart disease of native coronary artery without angina pectoris; Z79.4 Long term (current) use of insulin
CPT/HCPCS: 36415; 80048; 81003; 82803; 82962; 83735; 84100; 85025; 96360; 96372; 99284; J1815; J7030